=== PATIENT | male | born 1970 | race Caucasian/White ===

== ENCOUNTER 2023-05-18 14:29 | Emergency (ER) | payer MEDICAID, SELFPAY ==
--- NOTE | 2023-05-18 14:31 | HMH.EDGENADL ---
Discharge Plan Disposition Patient Disposition: Home, Self-Care Condition: Fair Prescriptions Prescriptions: New azithromycin 500 mg tablet 500 mg PO DAILY 5 Days Qty: 5 0RF dextromethorphan-guaifenesin 10-200 mg/5 mL liquid 7.5 ml PO Q6H PRN (Reason: cough) Qty: 237 0RF albuterol sulfate 90 mcg/actuation aerosol powdr breath activated 4 inh inhalation Q4H PRN (Reason: shortness of breath) Qty: 1 0RF Rx Instructions: until breathing returns to target peak flow/parameters Referrals Follow up/Referrals: Olegario Samaniego [Primary Care Provider] - See instructions Activity Restrictions/Add. Instructions Additional Instructions/Restrictions: I strongly recommend you quit smoking as this is likely significantly contributing to your cough. I have prescribed antibiotics, cough medication, inhaler to use as needed. In commendation with stopping smoking, with some time, your symptoms will likely improve. Please follow-up with your primary care provider. Please return with any new or worsening symptoms. Clinical Impressions Clinical Impression: Bronchitis Discharge ED Provider: Jimbo Schuster Adult [facility] General Chief complaint: Upper Respiratory Infection Stated complaint: cough Time Seen by Provider: 05/18/23 14:31 Related Data Previous Rx's Medication Instructions Recorded albuterol sulfate 90 mcg/actuation 4 inh inhalation Q4H PRN shortness 05/18/23 breath activated powder inhaler of breath #1 ea azithromycin 500 mg tablet 500 mg PO DAILY 5 days #5 tabs 05/18/23 dextromethorphan-guaifenesin 10 7.5 ml PO Q6H PRN cough #237 mL 05/18/23 mg-200 mg/5 mL oral liquid Allergies Allergy/AdvReac Type Severity Reaction Status Date / Time Penicillins Allergy Verified 05/18/23 15:17 [facility] Disclaimer: The information contained in this section may have been updated after the patient was seen, as this information can be updated by other users. Social History Smoking Status: Current every day smoker alcohol intake: current current occupational status: other Travel in the last 8 weeks: None ROS Obtained: Yes Systems reviewed as appropriate & no additional complaints except as documented As per HPI Physical Exam General General appearance: alert and in no apparent distress Head Head exam: atraumatic and normocephalic Eye Eye exam: Present normal appearance Neck Neck exam: Present normal inspection Chest Chest inspection: Present normal inspection and symmetric chest wall rise Respiratory Respiratory exam: Present normal lung sounds bilaterally; Absent respiratory distress Cardiovascular Cardiovascular exam: Present regular rate and normal rhythm Abdominal Exam Abdominal exam: Present soft Neurological Exam Neurological exam: Present alert and oriented X3 Psychiatric Psychiatric exam: Present normal affect and normal mood Skin Skin exam: Present warm and dry Medical Decision Making Medical Records Medical records reviewed: Yes I reviewed the patient's medical records. Edmundo Inquiry Pt receiving controlled substance: No Vital Signs: 05/18/23 14:39 05/18/23 14:37 Temperature 99.3 F Temperature Source Oral Pulse Rate 99 H Pulse Rate [Left Radial] 85 Respiratory Rate 16 20 Blood Pressure 145/105 H Blood Pressure [Right Arm] 145/105 H Blood Pressure Mean 117 Blood Pressure Mean [Right Arm] 118 02 Sat by Pulse Oximetry 97 97 Orders (Tests/Meds): ED MEDICATIONS Discontinued Medications Generic Name Dose Route Start Last Admin Trade Name Freq PRN Reason Stop Dose Admin Albuterol/Ipratropium 3 ml 05/18/23 14:45 05/18/23 15:24 Ipratropium/Albuterol 3 Ml Neb IH 05/18/23 14:46 3 ml ONCE ONE Administration Guaifenesin 10 ml 05/18/23 14:45 05/18/23 15:23 Guaifenesin/Dextromethorphan 200mg/20mg 10ml Udc PO 05/18/23 14:46 10 ml ONCE ONE Administration ORDERS Category Date Time Status XR chest 2V Stat Exam
[2023-05-18 14:37] VITALS: BP 145/105; PULSE 99; RESP 20; O2SAT 97
[2023-05-18 14:39] VITALS: BP 145/105; PULSE 85; RESP 16; TEMP 37.4; O2SAT 97; BMI 35.4
--- NOTE | 2023-05-18 14:45 | XR_ITS ---
PROCEDURE INFORMATION: Exam: XR Chest Exam date and time: 05/18/2023 2:46 PM Age: 52 years old Clinical indication: Cough; Additional info: SOA, cough TECHNIQUE: Imaging protocol: Radiologic exam of the chest. Views: 2 views. COMPARISON: No relevant prior studies available. FINDINGS: Lungs: Reticular interstitial opacities and mild peribronchial thickening in both lungs. No confluent airspace consolidation. Pleural spaces: Mild bilateral pleural thickening. No blunted costophrenic angles. Heart/Mediastinum: No abnormalities. No cardiomegaly. No pulmonary vascular congestion. Bones/joints: No fractures or bone lesions. IMPRESSION: Reticular interstitial opacities and peribronchial thickening in both lungs likely due to viral or atypical pneumonitis.
--- NOTE | 2023-05-18 15:39 | PC.NURSE ---
covid/flu swab sent to lab
[2023-05-18 15:42] LABS: Coronavirus 19, PCR Not Detected (NotDetected); Influenza A, PCR Not Detected (NotDetected); Influenza B, PCR Not Detected (NotDetected)
[2023-05-18 15:59] VITALS: BP 140/87; PULSE 80; RESP 20; TEMP 37.2; O2SAT 98
== END 2023-05-18 16:03 | disposition home or self-care (01) ==
PROVIDERS: Emergency Provider Emergency Medicine; PCP Family Medicine
DX: J20.9 Acute bronchitis, unspecified (principal); R05.9 Cough, unspecified; F17.210 Nicotine dependence, cigarettes, uncomplicated
CPT/HCPCS: 71046; 87636; 99283

== ENCOUNTER 2024-09-18 08:01 | Inpatient (IN) | payer MEDICAID, SELFPAY ==
[2024-09-18] VITALS (37 sets, daily range): BP systolic 85–136; BP diastolic 51–92; PULSE 49–141; RESP 14–22; TEMP 36.7–37.7; O2SAT 94–98; BMI 34.4; BMI 33.2
--- NOTE | 2024-09-18 08:06 | ECG_ITS ---
APPROVED REPORT Exam: Resting ECG HR:140 bpm ECG Measurements Heart Rate 140 AXES QRSd 122 QRS 260 QT 294 T 79 QTc 375 Conclusion ATRIAL FIBRILLATION WITH RAPID VENTRICULAR RESPONSE POSSIBLE RIGHT VENTRICULAR HYPERTROPHY [SOME/ALL OF: PROMINENT R IN V1, LATE TRANSITION, RAD, INEZ, SSS] ANTEROSEPTAL MYOCARDIAL INFARCTION , OF INDETERMINATE AGE [40+ ms Q WAVE IN V1-V4] ABNORMAL ECG UNCONFIRMED REPORT Electronically signed by : SKYLAR LANE, 09/20/2024 03:42:17
--- NOTE | 2024-09-18 08:09 | XR_ITS ---
FINAL REPORT CLINICAL HISTORY: Shortness of breath COMPARISON: None FINDINGS: No acute pulmonary opacity is present. There is no evidence of effusion or pneumothorax. Mediastinum is unremarkable. Heart size is normal. IMPRESSION: No acute abnormality. Reviewed, Interpreted and Dictated by Melani Rubin MD Transcribed by Simona George Authenticated and [facility]
--- NOTE | 2024-09-18 08:11 | HMH.EDCP ---
Discharge Plan Disposition Patient Disposition: Admitted Prescriptions Prescriptions: No Action azithromycin 500 mg tablet 500 mg PO DAILY 5 Days Qty: 5 0RF dextromethorphan-guaifenesin 10-200 mg/5 mL liquid 7.5 ml PO Q6H PRN (Reason: cough) Qty: 237 0RF albuterol sulfate 90 mcg/actuation aerosol powdr breath activated 4 inh inhalation Q4H PRN (Reason: shortness of breath) Qty: 1 0RF Rx Instructions: until breathing returns to target peak flow/parameters Referrals Follow up/Referrals: Olegario Samaniego [Primary Care Provider] - See instructions Clinical Impressions Clinical Impression: Atrial flutter with rapid ventricular response, Enlarged thyroid Print Language Print Language: Georgian Discharge ED Provider: Madi Miller HPI General Chief Complaint: Arrhythmia/Palpitations Stated Complaint: high heart rate Time Seen by Provider: 09/18/24 08:05 History of Present Illness HPI narrative: Patient is a 53-year-old male with past medical history of hypertension, previous ACS status post stenting who presents emergency department for evaluation of rapid heart rate. Patient has been not feeling right since 3 AM this morning causing him to ultimately present here via EMS. No chest pain, no abdominal pain, no trauma, no ingestions. Patient has slight shortness of breath with exertion, no other acute complaints at this time Of note patient was a previous substance abuser but has been clean for over 3 years. Please note that above description of symptoms, in this electronic medical record under categorization of recalled from ER triage doctor by RN are reflective of an initial nursing assessment, however, is not reflective of my full history and physical exam that was personally taken and clarified. Consequentially, this preceding description of symptoms, which may include the patient's categorized chief complaint in the EMR, do not reflect my personal clinical impression, and the ultimate description of history of present illness and patient stated complaints should be deferred to this section of the note. Unless stated otherwise or congruent with this section of the note, additional signs, symptoms, or incongruence should be interpreted as inaccurate with my clinical impression. Related Data Previous Rx's ?Medication ?Instructions ?Recorded albuterol sulfate 90 mcg/actuation 4 inh inhalation Q4H PRN shortness 05/18/23 breath activated powder inhaler of breath #1 ea azithromycin 500 mg tablet 500 mg PO DAILY 5 days #5 tabs 05/18/23 dextromethorphan-guaifenesin 10 7.5 ml PO Q6H PRN cough #237 mL 05/18/23 mg-200 mg/5 mL oral liquid Allergies Allergy/AdvReac Type Severity Reaction Status Date / Time Penicillins Allergy Verified 05/18/23 15:17 [facility] Disclaimer: The information contained in this section may have been updated after the patient was seen, as this information can be updated by other users. Social History (Updated 05/18/23 @ 15:43 by Jimbo Schuster MD) Smoking Status: Current every day smoker alcohol intake: current current occupational status: other Travel in the last 8 weeks: None Have you lived/traveled outside US in past 30 days?: No Contact w/someone who lives/traveled outside US past 30 days?: No Exposure to someone with infectious disease in past 14 days?: No Do you have a fever (greater than 100.4 F or 38 C)?: No Have you tested positive for COVID-19: No Exposed to someone with COVID-19 in past 14 days?: No Do you have a sore throat?: No Do you have a cough?: No Do you have any weakness?: No Do you have any diarrhea?: No Are you experiencing any unusual bleeding?: No Do you have any muscle aches/pain?: No Do you have any abdominal pain?: No Are you experiencing loss of taste or smell?: No ROS Obtained: Yes Systems reviewed as appropriate & no additional complaints except as documented Physical Exam General General appearance: alert and in no apparent distress Head Head exam: atraumatic and normocephalic Eye Eye exam: Present PERRL and EOMI ENT ENT exam: Present mucous membranes moist Neck Neck exam: Present normal inspection Chest Chest inspection: Present normal inspection and symmetric chest wall rise Respiratory Respiratory exam: Present normal lung sounds bilaterally; Absent respiratory distress Cardiovascular Cardiovascular exam: Present regular rate and normal rhythm Abdominal Exam Abdominal exam: Present soft; Absent tenderness Extremities Exam Extremities exam: Present normal inspection Neurological Exam Neurological exam: Present alert and oriented X3 Psychiatric Psychiatric exam: Present normal affect Skin Skin exam: Present warm and dry HEART Score HEART Score HEART Score assessment performed?: Yes History (anamnesis): Slightly suspicious ECG: Non-specific disturbance Age: 45-65 years Risk factors: Atherosclerosis history Troponin: </= normal limit HEART Score: 4 Critical Care Critical Care Time Critical Care Time: Yes Attestation: On 09/18/24, the high probability of a clinically significant, sudden or life threatening deterioration of the following system(s) required my full and direct attention, intervention and personal management. The time I documented below is in addition to time spent performing reported procedures but includes the following listed in this critical care notation. Total Time Total Critical Care Time: 45 Medical Decision Making Edmundo Inquiry Pt receiving controlled substance: No Vital Signs Vital Signs: 09/18/24 08:12 09/18/24 08:22 09/18/24 08:39 Temperature 99.8 F H Temperature Source Oral Pulse Rate 140 H 135 H Pulse Rate [Left Radial] 139 H Respiratory Rate 22 Blood Pressure 116/91 H Blood Pressure [Right Arm] 136/92 H Blood Pressure Mean [Right Arm] 106 Blood Pressure Source [Right Arm] Automatic Cuff Blood Pressure Position [Right Arm] Supine 02 Sat by Pulse Oximetry 98 98 Oxygen Delivery Method Room Air Room Air 09/18/24 09:00 09/18/24 09:30 09/18/24 10:12 Temperature Temperature Source Pulse Rate 141 H 139 H 138 H Pulse Rate [Left Radial] Respiratory Rate 17 18 Blood Pressure 112/92 H 113/83 125/89 Blood Pressure [Right Arm] Blood Pressure Mean [Right Arm] Blood Pressure Source [Right Arm] Blood Pressure Position [Right Arm] 02 Sat by Pulse Oximetry 97 95 96 Oxygen Delivery Method Room Air Room Air Room Air 09/18/24 10:30 Temperature Temperature Source Pulse Rate 137 H Pulse Rate [Left Radial] Respiratory Rate 18 Blood Pressure 120/87 Blood Pressure [Right Arm] Blood Pressure Mean [Right Arm] Blood Pressure Source [Right Arm] Blood Pressure Position [Right Arm] 02 Sat by Pulse Oximetry 96 Oxygen Delivery Method Room Air Lab Data Labs: Lab Results 09/18/24 08:32: SARS-CoV-2 (PCR) Not detected, Influenza A Untype (PCR) Not detected, Influenza Type B (PCR) Not detected 09/18/24 08:37: WBC 9.9, RBC 6.13, Hgb 19.2 H, Hct 57.2 H, MCV 93.3, MCH 31.5 H, MCHC 33.7, RDW 12.9, Plt Count 216, MPV 10.2, Neut % (Auto) 62.4, Lymph % (Auto) 29.0, [place] % (Auto) 6.7, Eos % (Auto) 1.0, Baso % (Auto) 0.5, Neut # (Auto) 6.2, Lymph # (Auto) 2.9, [place] # (Auto) 0.7, Eos # (Auto) 0.1, Baso # (Auto) 0.1, D-Dimer 0.61 H, Sodium 141, Potassium 4.2, Chloride 105, Carbon Dioxide 26, Anion Gap 14.2, BUN 16, Creatinine 1.20, Estimated Creat Clear 108, Estimated GFR 64, Est GFR ( Amer) 77, Glucose 94, Calcium 9.5, Magnesium 1.8, Total Bilirubin 0.8, AST 46, ALT 48, Alkaline Phosphatase 82, Troponin I 0.02, NT-Pro-B Natriuret Pep 466 H, Total Protein 9.1 H, Albumin 4.7, Globulin 4.4 H, Albumin/Globulin Ratio 1.1, TSH 1.51, Free T4 1.16, HCV Ab EMELIA w/Rflx PCR Qn Reactive, HIV Ag/Ab Combo Qual Negative 09/18/24 08:37 09/18/24 08:37 Response Orders (Tests/Meds): ED MEDICATIONS Generic Name Dose Route Start Last Admin Trade Name Freq PRN Reason Stop Dose Admin Diltiazem HCl 100 mg/ Sodium 100 mls @ 15 mls/hr 09/18/24 09:30 09/18/24 09:40 Chloride IV 10/18/24 09:29 15 mg/hr .Q6H40M PATTI 15 mls/hr Titration Protocol 15 MG/HR Esmolol HCl 2,500 mg in 250 mls @ 31.706 mls/hr 09/18/24 10:30 09/18/24 10:37 Esmolol In Water 2,500mg/250ml Premix IV 10/18/24 10:29 50 mcg/kg/min .Q7H54M PATTI 31.71 mls/hr Administration Protocol 50 MCG/KG/MIN Discontinued Medications Generic Name Dose Route Start Last Admin Trade Name Freq PRN Reason Stop Dose Admin Diltiazem HCl 15 mg 09/18/24 08:24 09/18/24 08:32 Diltiazem 25mg/5ml Vial IV 09/18/24 08:25 15 mg ONCE ONE Administration Diltiazem HCl 15 mg 09/18/24 09:08 09/18/24 09:14 Diltiazem 25mg/5ml Vial IV 09/18/24 09:09 15 mg ONCE ONE Administration Esmolol HCl 50 mg 09/18/24 10:30 09/18/24 10:37 Esmolol Hcl 100 Mg/10 Ml Vial IV 09/18/24 10:31 50 mg ONCE ONE Administration Lactated Ringer's 500 mls @ 999 mls/hr 09/18/24 09:48 09/18/24 09:52 Lactated Ringer's 500ml IV 09/18/24 10:18 999 mls/hr .Q31M ONE Administration Iopamidol 80 ml 09/18/24 10:12 09/18/24 10:13 Iopamidol-370 (76%);100ml Bottle IV 09/18/24 10:13 80 ml ONCE ONE Administration Sodium Chloride 10 ml 09/18/24 10:12 09/18/24 10:13 Sodium Chloride 0.9% 10ml Syr (Rad Only) IV 09/18/24 10:13 10 ml ONCE ONE Administration Sodium Chloride 50 ml 09/18/24 10:12 09/18/24 10:13 0.9 % Sodium Chloride 50 Ml Vial IV 09/18/24 10:13 50 ml ONCE ONE Administration ORDERS Category Date Time Status CT angio chest - dissection Stat Cat Scan 09/18/24 09:46 Completed CA echo limited Stat Exams 09/18/24 08:24 Completed CXR --portable [XR chest portable] Stat Exams 09/18/24 08:09 Completed POCUS Point of Care (ER Only) Stat Exams 09/18/24 08:09 Completed BNP [NT Pro Brain Natriuretic Pep.] Stat Lab 09/18/24 08:37 Completed CBC w/Auto Diff [Complete Blood Count Auto Diff] Stat Lab 09/18/24 08:37 Completed CMP [Comprehensive Metabolic Panel] Stat Lab 09/18/24 08:37 Completed D-Dimer Stat Lab 09/18/24 08:37 Completed Drug Screen,Urine Stat Lab 09/18/24 10:43 Ordered Ethanol [Ethyl Alcohol] Stat Lab 09/18/24 10:43 Ordered Free T4 (Free Thyroxine) Stat Lab 09/18/24 08:37 Completed HCV RNA PCR, Quant Stat Lab 09/18/24 08:37 Received HIV Combo Stat Lab 09/18/24 08:37 Completed Hepatitis C Ab Qual. W/ RFX Stat Lab 09/18/24 08:37 Completed MG [Magnesium] Stat Lab 09/18/24 08:37 Completed Rapid PCR Covid and Flu A/B Stat Lab 09/18/24 08:32 Completed TSH [Thyroid Stimulating Hormone] Stat Lab 09/18/24 08:37 Completed Trop I [Troponin I] Stat Lab 09/18/24 08:37 Completed Troponin I Q3H Lab 09/18/24 11:15 Ordered Troponin I Q3H Lab 09/18/24 14:15 Ordered ECG Data Tracing #1: ECG Narrative: Independently interpreted by me rate is 140, rhythm is slightly irregular, wide-complex, sawtooth wave lead V1, atrial flutter with bundle branch block, QTc 375 MDM Narrative Medical Decision Narrative: In summary patient is a 53-year-old male with past medical history described above who presents emergency department for evaluation of rapid heart rate. Patient is hemodynamically stable nontoxic-appearing upon arrival, afebrile. Patient has not an irregular wide-complex tachycardia which is difficult for me to discern whether it is sinus arrhythmia with a bundle branch block however could be atrial flutter with bundle branch block. Differential includes primary electrical arrhythmia, metabolic derangement, hyperthyroidism, pulmonary embolism, among others. Workup will be conducted with hematologic labs, chest x-ray, EKG, troponin, [id number] ultrasound. Case was discussed with Dr. Moreno, this is atrial flutter with a bundle branch block. Patient does not have decompensated heart failure so we will conduct rate control with IV diltiazem. [id number] ultrasound at bedside has suboptimal views formal will be obtained, no large pericardial effusion, appears to be slightly impaired diastolic filling of the left ventricle. Gentle crystalloid resuscitation will be conducted. Initial hematologic labs reviewed by me no significant leukocytosis, D-dimer mildly elevated, although it can be excluded per years criteria patient's tachycardia is refractory to diltiazem CTA will be conducted. No critical electrolyte abnormality thyroid studies normal. Viral swab negative. CT imaging no evidence of PE or acute lung disease, there is left thyroid lobe enlargement which will require outpatient follow-up. I do not think patient is in thyroid storm given that his T4 is normal. Case was discussed with Dr. Moreno given refractory atrial flutter maxed out on diltiazem drip will add esmolol drip in addition. Case was subsequently discussed with hospital medicine they admit the patient their service for continued evaluation at this time. Procedure: Procedure performed was [id number] ultrasound cardiac. Procedure performed by Madi Miller. Using combination of phased-array and curvilinear probe parasternal long axis and apical 4 as well as subxiphoid view were attempted, all views were suboptimal however there is no large pericardial effusion, there appears to be slight impaired contractility of the left ventricle. Images were not saved to permanent archive. Patient tolerated procedure well. They were not technically adequate and did not necessitate formal echo. Procedure: Procedure performed was ultrasound-guided IV. Procedure performed by Madi Miller. Using the linear probe a long 18-gauge IV was placed in the right cephalic vein. Patient tolerated procedure well. There were no immediate complications. Vessel cannula was patent.
--- NOTE | 2024-09-18 08:14 | PC.NURSE ---
Had Dr Moreno paged per Dr Miller for this pt
--- NOTE | 2024-09-18 08:23 | PC.NURSE ---
on phone with akhil
--- NOTE | 2024-09-18 08:24 | CA_ITS ---
APPROVED REPORT EXAM: Limited 2D Echocardiogram Tire Man: Marlene May RT(R) Ht: 5 ft 9 in Wt: 233lbs BSA: 2.20 BP: 136/92 mmHg Indications: tachycardia, HTN, smoker, palpitations. attempted echo with rapid heart rate, returned later to assess when rate slowed. TDE due to limited windows secondary to lung interference. Ordered as a limited echo to assess EF. 2D Dimensions EF AP4 33.40 % GL Strain -7.1 % Other Information Study Quality: Fair Conclusion This is a limited TTE to evaluate for LV systolic function. Limited windows are obtained. The left ventricle is normal in size. There is increased LV wall thickness. There is moderate global hypokinesis present. LVEF is 35-40%. The right ventricle is mildly dilated, with mildly reduced RV function. Mild biatrial dilation is present. Valve evaluation is not performed in the study. Electronically signed by : Christy Augustin MD 09/18/2024 21:07:22
--- NOTE | 2024-09-18 08:25 | PC.NURSE ---
Dr Moreno called back and spoke to Dr Miller to have Echo and then some Dil.
[2024-09-18] MEDS: dilTIAZem 25MG/5ML VIAL 15 MG IV ×2 (08:32→09:14)
--- OUTSIDE RECORDS SUMMARY | 2024-09-18 08:34 | XMS_ITS | Data Portability ---
Author Organization [facility] ADMIN Address [address] [place] [id number] Assessment No assessment recorded. Plan of Treatment Reminders Order Date Submit Date Provider Last Modified By Organization Details Last Modified Time Details Appointments None recorded. Lab HbA1c (hemoglobin A1c), blood 2023 [facility] (Lab Registration) , [address] , [place], [address], 4 09:24:09 CBC 2023 [facility] (Lab Registration) , [address], [place], [address], 4 09:24:08 CMP, serum or plasma 2023 [facility] (Lab Registration) , [address] [place], [address], 4 09:24:08 lipid panel, serum 2023 [facility] (Lab Registration) , [address] [place], [address], 4 09:24:09 Referral None recorded. Procedures home sleep testing (PROC) 2023 [email or web address] Not available 4 10:56:57 Surgeries None recorded. Imaging US, echocardiog wilmar, transthorac ic, complete, w/ color flow 2023 [facility], [address], [place], [address], 4 09:23:53 pharmacolog ic nuclear stress test 2023 024 [facility], [address], [place], [address], 4 09:23:53 Medication Orders nitroglycer in 0.4 mg sublingual tablet 2023 024 [id number], [address] [place], [address], 14:39:38 Patient TargetsNo targets recorded. Patient InstructionsNo instructions recorded. Reason for Referral None Reported. Medical Equipment None Reported. Medications Name Sig Start Date Stop Date Status Note LastModified by Organization Details LastModified Time atorvastatin 80 mg tablet TAKE 1 TABLET BY MOUTH EVERY DAY FOR CHLOESTEROL active Not Available Not Available Not Available prednisone 10 mg tablet TAPERING DAILY DOSE OUTLINED: 5,5,4,4,3,3 ,2,2,1,1 active Not Available Not Available No t Available ipratropium 0.5 mg-albuterol 3 mg (2.5 mg base)/3 mL nebulization soln INHALE 1 VIAL VIA NEBULIZER 4 TIMES A DAY NEEDED active Not Available Not Available No t Available azithromycin 250 mg tablet TAKE 2 TABLETS BY MOUTH TODAY, THEN TAKE 1 TABLET DAILY FOR 4 DAYS DIRECTED active Not Available Not Available No t Available ibuprofen 800 mg tablet 1 TABLET 3 TIMES A DAY NEEDED active Not Available Not Available No t Available prednisone 20 mg tablet TAKE 2 TABLETS BY MOUTH EVERY DAY FOR 5 DAYS active Not Available Not Available No t Available aspirin 81 mg tablet,delay ed release TAKE 1 TABLET BY MOUTH EVERY DAY active Not Available Not Available No t Available tamsulosin 0.4 mg capsule TAKE 1 CAPSULE BY MOUTH EVERY DAY FOR URINATION active Not Available Not Available No t Available trazodone 100 mg tablet TAKE 1 TABLET BY MOUTH EVERYDAY AT BEDTIME active Not Available Not Available No t Available amlodipine 10 mg tablet TAKE 1 TABLET BY MOUTH EVERY DAY FOR BLOOD PRESSURE active Not Available Not Available No t Available lisinopril 10 mg tablet TAKE 1 TABLET BY MOUTH EVERY DAY TO IMPROVE BLOOD PRESSURE active Not Available Not Available No t Available Advair Diskus 250 mcg-50 mcg/dose powder for inhalation INHALE 1 PUFF TWICE A DAY active Not Available Not Available No t Available nitroglyceri n 0.[address] 1 TABLET UNDER TONGUE EVERY 5 MINS, UP TO 3 DOSES NEEDED FOR CHEST PAIN active Not Available Not Available N ot Available fluoxetine 20 mg capsule TAKE 1 CAPSULE BY MOUTH EVERY DAY FOR MOOD active Not Available Not Available No t Available Ventolin HFA 90 mcg/actuatio n aerosol inhaler TAKE 2 PUFFS BY MOUTH EVERY 4 HOURS NEEDED FOR WHEEZE active Not Available Not Available No t Available azithromycin 500 mg tablet TAKE 1 TABLET BY MOUTH ONCE DAILY FOR 5 DAYS active Not Available Not Available No t Available Tussin DM Cough and Chest 5 mg-100 mg/5 mL oral liquid TAKE 7.5 ML BY MOUTH EVERY 6 HOURS NEEDED FOR COUGH active Not Available Not Available No t Available Chest Congestion Relief DM 10 mg-100 mg/5 mL oral syrup TAKE 5 TO 10 ML BY MOUTH 4 TIMES A DAY NEEDED FOR COUGH active Not Available Not Available No t Available Ozempic 0.25 mg or 0.5 mg (2 mg/3 mL) subcutaneous pen injector INJECT 0.25 MG UNDER THE SKIN ONCE WEEKLY FOR 4 WEEKS, THEN 0.5 MG ONCE WEEKLY active Not Available Not Available No t Available Vitals Date Recorded Body weight Oxygen saturation Oxygen saturation in Arterial blood by Pulse oximetry Heart rate Systolic blood pressure Diastolic blood pressure Provider Name and Address Organization Details Last Updated DateTime 4 109600. 94 g 98 % 98 % 83 /min 128 mm[Hg] 82 mm[Hg] [facility] & [place] 4 14:36:34 Social History None recorded. Functional Status None recorded. Mental Status None recorded. Family History Nothing Reported. Medical History No medical history recorded. Past Encounters Encounter ID Performer Location Encounter Start Date Encounter Closed Date Diagnosis/Indication Diagnosis SNOMED-CT Code Diagnosis ICD10 Code Diagnosis Note [id number] Eugenia Langley MD [address] [place] [id number] 09/16/2023 14:35:25 09/16/2023 14:46:41 Dyspnea on exertion 46358015 R06.09 Exertional shortness of breath in a patient with multiple risk factors for coronary artery disease and history of coronary stents. Could be angina equivalent . We will proceed with ischemic workup. History of placement of stent for coronary artery disease 073846530 Z95.5 multiple coronary stents when the patient was 39 years old for heart attack as per the patient done at [facility] records not available to us. No chest pain. No ischemic changes on the EKG. Continue medical treatment. Essential hypertension 47517873 I10 controlled continue medication s. Dyslipidemia 136590462 E 78.5 On statin follow up fasting lipid profile. Cigarette smoker 0129149 7 F17.210 Strongly encouraged the patient to quit smoking. I had a lengthy discussion with the patient regarding quitting smoking and available measuremen t to help him quit smoking including support groups nicotine patches or medication like Chantix. Obesity 537637268 E66.9 Recommend sleep apnea evaluation . Type 2 rupali betes mellitus without complication 401336033 E11.9 Follow up hemoglobin A1c. Health Concerns Section Related Observation LastModified by Organization Detai ls LastModified Time None Recorded Concern Status LastModified by Organization Details LastModified Time None Recorded Advance Directives Directive None Recorded Payers Encounter Date Sequence Insurance Name Policy Number Policy Arreola Covered Member ID Arreola Member ID Guarantor Name 09/16/2023 1 [employer] (MEDICAID REPLACEMENT - HMO) Joel Lemons [id number] Joel Lemons Notes Date Note Type Note Provider Name and Address Organization Details Recorded Time 09/16/2023 text/html 52-year-old man with a past medical history significant for coronary artery disease as per the patient he had heart attack and coronary stents when he was 39 years old, hypertension dyslipidemia chronic smoker borderline diabetes and obesity.Patient had a visit to the ER on 09/13/2023 for shortness of breath. He has been complaining of worsening shortness of breath especially with exertion for the last couple of weeks. Associated with cough and phlegm no hemoptysis no fever no chills no bleeding anywhere. No chest pain he is physically active at work. No palpitation dizziness falling down or passing out no orthopnea PND or leg swelling.I reviewed and discussed with the patient the results of the blood work that was done 09/13/2023 at the ER including complete metabolic panel, troponin which was 93 and 91, D-dimer, CBC, INR 0.97 EKG done 09/13/23 at the ER Normal sinus rhythm, HR 84 bpm no ischemic changes. Eugenia Langley MD [address] [place] [address], [phone], [facility] & [place] 09/16/2023 14:54:20
[2024-09-18 08:39] LABS: Coronavirus 19, PCR Not Detected (NotDetected); Influenza A, PCR Not Detected (NotDetected); Influenza B, PCR Not Detected (NotDetected)
--- NOTE | 2024-09-18 08:45 | PC.NURSE ---
pt placed on gown
[2024-09-18 08:46] LABS: Basophils # 0.1 K/mm3 (0-0.2); Basophils % 0.5 % (0.1-2.0); Eosinophils # 0.1 K/mm3 (0.0-0.4); Hematocrit 57.2 % (42.0-52.0); Lymphocytes # 2.9 K/mm3 (0.7-4.5); Mean Corpuscular HGB Conc 33.7 g/dL (31.8-35.4); Mean Corpuscular Hemoglobin 31.5 pg (27.0-31.2); Mean Corpuscular Volume 93.3 fl (80-94); Mean Platelet Volume 10.2 fl (7.4-10.4); Monocytes # 0.7 K/mm3 (0.1-1.0); Monocytes % 6.7 % (1.7-9.3); Neutrophils # 6.2 K/mm3 (1.8-7.8); Neutrophils % 62.4 % (37.0-80.0); Nucleated Red Blood Cells # 0 10^3/uL; Nucleated Red Blood Cells % 0 %; Platelet Count 216 K/mm3 (142-424); Red Blood Count 6.13 M/mm3 (4.60-6.20); Red Cell Distribution Width 12.9 % (11.5-17.5); Red Cell Distribution Width-SD 44.3 fL; White Blood Count 9.9 K/mm3 (4.8-10.8)
[2024-09-18 08:55] LABS: Albumin Level 4.7 g/dl (3.5-5.0); Chloride 105 mmol/L (98-107)
[2024-09-18 08:56] LABS: Potassium 4.2 mmoL/L (3.5-5.1); Sodium 141 mmol/L (136-145)
[2024-09-18 08:58] LABS: Alanine Aminotransferase 48 U/L (12-78); Albumin/Globulin Ratio 1.1 (1.1-1.8); Anion Gap 14.2 mEq/L (5-15); Aspartate Amino Transferase 46 U/L (17-59); Blood Urea Nitrogen 16 mg/dl (9-20); Carbon Dioxide 26 mmol/L (22.0-30.0); Creatinine Clearance Estimated 108 mL/min (50-200); Estimated Glomerular Filt Rate 64 ml/min (>60); GFR (African American) 77 ML/MIN (>60); Globulin 4.4 g/dL (1.3-3.2); Total Protein,Serum 9.1 g/dl (6.3-8.2)
[2024-09-18 08:59] LABS: Alkaline Phosphatase 82 U/L (38-126); Bilirubin,Total 0.8 mg/dl (0.2-1.3); Calcium 9.5 mg/dl (8.4-10.2); Glucose 94 mg/dl (74-100); Magnesium 1.8 mg/dl (1.6-2.3)
[2024-09-18 09:05] LABS: D-Dimer 0.61 ug/mL (0.0-0.5)
[2024-09-18 09:08] LABS: NT Pro Brain Natriuretic Pep. 466 pg/mL (0-125)
[2024-09-18 09:11] LABS: Hemoglobin 19.2 g/dL (14.1-18.0); Troponin I 0.02 ng/ml (0.00-0.034)
[2024-09-18] MEDS: dilTIAZem HCL 100 MG in 0.9 % SODIUM CHLORIDE 100 ML IV (09:14)
[2024-09-18 09:29] LABS: Thyroid Stimulating Hormone 1.51 uIU/mL (0.465-4.68)
[2024-09-18 09:34] LABS: Free T4 (Free Thyroxine) 1.16 ng/dl (0.78-2.19)
--- NOTE | 2024-09-18 09:46 | CT_ITS ---
FINAL REPORT TECHNIQUE: Thin section axial CT with contrast with multiplanar reconstruction This study was performed with techniques to keep radiation doses as low as reasonably achievable, (ALARA). Individualized dose reduction techniques using automated exposure control or adjustment of mA and/or kV according to the patient''s size were employed. CLINICAL HISTORY: sob, tachy FINDINGS: Pulmonary vessels enhance in normal fashion without evidence of embolism. The ascending aorta is mildly aneurysmal measuring 40 mm. There is no evidence of dissection. There is marked enlargement of the left thyroid lobe with probable underlying mass measuring 4 cm. No pulmonary mass or infiltrate is present. There is no significant pleural effusion. There is no significant pericardial effusion. No mediastinal or hilar adenopathy is present. Limited images of the upper abdomen reveal a cirrhotic appearance to the liver. IMPRESSION: No evidence of pulmonary embolism or acute lung disease. Left thyroid lobe enlargement. Recommend follow-up ultrasound. Underlying cirrhosis. Reviewed, Interpreted and Dictated by Melani Rubin MD Transcribed by Margaret Yang Authenticated and [facility]
[2024-09-18] MEDS: RINGERS SOLUTION,LACTATED 500 ML 999 ML IV (09:52)
[2024-09-18 09:59] LABS: HIV Combo NEGATIVE (Negative)
[2024-09-18 10:07] LABS: Hepatitis C Ab Qual. W/ RFX REACTIVE (Negative)
[2024-09-18] MEDS: IOPAMIDOL-370 (76%);100ML BOTTLE 80 ML IV (10:13)
[2024-09-18] MEDS: SODIUM CHLORIDE 0.9% 10ML SYR (RAD ONLY) 10 ML IV ×2 (10:13→13:20)
[2024-09-18] MEDS: 0.9 % SODIUM CHLORIDE 50 ML VIAL IV ×2 (10:13→13:20)
[2024-09-18] MEDS: ESMOLOL HCL 100 MG/10 ML VIAL 50 MG IV (10:37)
[2024-09-18] MEDS: ESMOLOL HCL IN STERILE WATER 2,500 MG/250 ML PIGGYBACK 31.71 MG IV (10:37)
--- NOTE | 2024-09-18 10:43 | PC.NURSE ---
I notified of the need for a bed for admission.
[2024-09-18 11:02] LABS: Ethyl Alcohol < 10 mg/dl (0-10)
[2024-09-18 11:11] LABS: Barbiturates Screen,Urine Negative ng/ml (<200)
[2024-09-18 11:12] LABS: Amphetamine/Metha Screen,Urine Negative ng/ml (<1000); Benzodiazepines Screen,Urine Negative ng/ml (<200)
[2024-09-18 11:13] LABS: Cocaine Screen,Urine Negative ng/ml (<300)
[2024-09-18 11:14] LABS: Methadone Screen,Urine Negative ng/ml (<300)
[2024-09-18 11:15] LABS: Cannabinoid Screen,Urine Negative ng/ml (<50); Opiate Screen,Urine Negative ng/ml (<300)
[2024-09-18 11:16] LABS: Phencyclidine Screen,Urine Negative ng/ml (<25)
--- NOTE | 2024-09-18 11:24 | EXP.CARD.CON ---
History of Present Illness History of Present Illness Consult date: 09/18/24 Requesting physician: Madi Miller Chief complaint: palpitations History of present illness: Mr. Lemons is a 53-year-old white gentleman with past medical history of coronary artery disease with stenting to LAD in his early 30s with no cardiology follow-up since then, hypertension and hyperlipidemia who presented to emergency department with complaints of palpitations and fast heart rate. Patient reports he awoke at 3 in the morning with symptoms and was able to go back to sleep. Reports that when he awoke this morning he was still having the palpitations and mild shortness of air. He denies orthopnea, lower extremity edema or chest pain. EKG upon presentation to emergency department shows a an irregular wide-complex tachycardia which could possibly be A-fib RVR at a rate of 140. Initial chest x-ray shows no acute abnormality. Labs as follow: WBC 9.9, hemoglobin 19.2, positive D-dimer, sodium 141, potassium 4.2, creatinine 1.2, troponin negative, proBNP 466, drug toxicology negative, negative for alcohol. Chest CTA is negative for pulmonary embolism or acute lung findings. There is a left thyroid lobe enlargement noted on scan and underlying cirrhosis. TSH and free T4 are both normal. Patient was started on diltiazem drip without rate control achieved. Patient is now on diltiazem and esmolol drip for rate control. Patient is resting comfortably with minimal symptoms. He reports some mild shortness of breath and he can feel his heart racing but no chest pain. Blood pressure remained stable. Echocardiogram is pending. [facility] Disclaimer: The information contained in this section may have been updated after the patient was seen, as this information can be updated by other users. Social History (Updated 05/18/23 @ 15:43 by Jimbo Schuster MD) Smoking Status: Current every day smoker alcohol intake: current current occupational status: other Travel in the last 8 weeks: None Have you lived/traveled outside US in past 30 days?: No Contact w/someone who lives/traveled outside US past 30 days?: No Exposure to someone with infectious disease in past 14 days?: No Do you have a fever (greater than 100.4 F or 38 C)?: No Have you tested positive for COVID-19: No Exposed to someone with COVID-19 in past 14 days?: No Do you have a sore throat?: No Do you have a cough?: No Do you have any weakness?: No Do you have any diarrhea?: No Are you experiencing any unusual bleeding?: No Do you have any muscle aches/pain?: No Do you have any abdominal pain?: No Are you experiencing loss of taste or smell?: No Review of Systems Review of Systems Review of systems:: pertinent systems reviewed and negative unless documented below *Cardiovascular Cardiovascular: Denies chest pain and Reports dyspnea Comments: palpitations *Respiratory Respiratory: Reports dyspnea Exam Data for Last 24 hours Vital signs and Labs for Last 24 Hours: Temp Pulse Resp BP Pulse Ox O2 Del Method 99.8 F H 134 H 21 117/82 96 Room Air 09/18/24 08:12 09/18/24 11:00 09/18/24 11:00 09/18/24 11:00 09/18/24 11:00 09/18/24 10:30 Laboratory Results - last 24 hr 09/18/24 08:32: SARS-CoV-2 (PCR) Not detected, Influenza A Untype (PCR) Not detected, Influenza Type B (PCR) Not detected 09/18/24 08:37: WBC 9.9, RBC 6.13, Hgb 19.2 H, Hct 57.2 H, MCV 93.3, MCH 31.5 H, MCHC 33.7, RDW 12.9, Plt Count 216, MPV 10.2, Neut % (Auto) 62.4, Lymph % (Auto) 29.0, [place] % (Auto) 6.7, Eos % (Auto) 1.0, Baso % (Auto) 0.5, Neut # (Auto) 6.2, Lymph # (Auto) 2.9, [place] # (Auto) 0.7, Eos # (Auto) 0.1, Baso # (Auto) 0.1, D-Dimer 0.61 H, Sodium 141, Potassium 4.2, Chloride 105, Carbon Dioxide 26, Anion Gap 14.2, BUN 16, Creatinine 1.20, Estimated Creat Clear 108, Estimated GFR 64, Est GFR ( Amer) 77, Glucose 94, Calcium 9.5, Magnesium 1.8, Total Bilirubin 0.8, AST 46, ALT 48, Alkaline Phosphatase 82, Troponin I 0.02, NT-Pro-B Natriuret Pep 466 H, Total Protein 9.1 H, Albumin 4.7, Globulin 4.4 H, Albumin/Globulin Ratio 1.1, TSH 1.51, Free T4 1.16, Urine Opiates Screen Negative, Urine Methadone Screen Negative, Ur Barbituates Screen Negative, Ur Phencyclidine Scrn Negative, Ur Amphetamines Screen Negative, U Benzodiazepines Scrn Negative, Urine Cocaine Screen Negative, U Marijuana (THC) Screen Negative, Plasma/Serum Alcohol < 10, HCV Ab EMELIA w/Rflx PCR Qn Reactive, HIV Ag/Ab Combo Qual Negative I & O for Last 24 hours: Intake & Output 09/15/24 09/16/24 09/17/24 09/18/24 23:59 23:59 23:59 23:59 Intake Total 2.167 / 2.167 Balance 2.167 / 2.167 Weight 233 lb Constitutional Constitutional: no acute distress *Routine Respiratory Exam Respiratory: Present CTA bilaterally and symmetric chest movement *Routine Cardiovascular Exam Cardiovascular: Present Normal S1, Normal S2 and irregular rhythm Comments: Irregular wide-complex tachycardia noted *Routine Abdominal Exam Abdominal: Present soft and normoactive bowel sounds; Absent tenderness *Routine Extremities Exam Extremities: Present full ROM and normal capillary refill; Absent edema *Routine Skin Exam Skin: Present intact, dry and warm Detailed Neck Exam: Thyroids Thyroid: Absent bruit Meds Home Medications and Allergies Home Medications ?Medication ?Instructions ?Recorded ?Confirmed ?Type albuterol sulfate 90 mcg/actuation 4 inh inhalation Q4H PRN shortness 05/18/23 Rx breath activated powder inhaler of breath #1 ea azithromycin 500 mg tablet 500 mg PO DAILY 5 days #5 tabs 05/18/23 Rx dextromethorphan-guaifenesin 10 7.5 ml PO Q6H PRN cough #237 mL 05/18/23 Rx mg-200 mg/5 mL oral liquid New Prescriptions to Start Prescriptions: Allergies Allergy/AdvReac Type Severity Reaction Status Date / Time Penicillins Allergy Verified 05/18/23 15:17 Assessment and Plan *Assessment and plan (1) Palpitations: Status: Acute Category: Medical Code(s): R00.2 - Palpitations (2) Tachycardia: Status: Acute Category: Medical Code(s): R00.0 - Tachycardia, unspecified (3) Enlarged thyroid: Status: Acute Category: Medical Code(s): E04.9 - Nontoxic goiter, unspecified (4) Atrial flutter with rapid ventricular response: Status: Acute Category: Medical Code(s): I48.92 - Unspecified atrial flutter Plan Palpitations Tachycardia Wide-complex QRS-possibly A-fib RVR CTA negative for PE Troponin negative TSH and free T4 negative Continue Cardizem and esmolol drips Lovenox 1 mg subcu twice daily Consider CCTA to rule out LV thrombus and cardioversion if cannot achieve rate control with esmolol and Dilt Echocardiogram pending History of coronary artery disease Patient reports he had stenting to his LAD in his 20s Has not seen cardiology since then Current smoker diabetic Denies chest pain First troponin negative Enlarged thyroid lobe noted on CTA TSH and free T4 normal Defer to primary service 09/18/2024: If rate control cannot be achieved with esmolol and diltiazem drips will consider cardioversion. Patient will need CCTA to rule out LV thrombus prior to cardioversion.
--- NOTE | 2024-09-18 11:26 | PC.NURSE ---
report called to bola on second floor
--- NOTE | 2024-09-18 12:01 | CT_ITS ---
APPROVED REPORT Chief Sustainability Officer: CLINICAL INDICATION Atrial fibrillation, evaluation for BOGDAN thrombus TECHNIQUE Image Acquisition: A 128 slice MDCT scanner ([facility]) was used for data acquisition. A noncontrast coronary calcium scan was performed. A CT attenuation threshold of 130 Hounsfield units (HU) was used for the detection of calcium in contiguous voxels of 1 sq mm in area to be counted as individual lesions. Bolus tracking in the ascending aorta with a threshold of 180 HU was performed. Immediately afterwards, ECG synchronized cardiac CT was then performed from the cardiac base to apex using retrospective gating with ECG tube current modulation. A total of 85 mL of Isovue 370 mg/mL contrast medium was administered at 5 mL/sec followed by a saline flush using a biphasic injection protocol. Early bolus imaging was performed immediately after administration of contrast, followed by a delayed bolus imaging performed approximately 60-120 seconds thereafter to evaluate for left atrial appendage filling. A tube voltage of 120 KVp was used. Image Reconstruction Transaxial images were reconstructed at 0.67 mm slide thickness. Data was reviewed interactively on an advanced workstation capable of 2 and 3-dimensional displays in all conventional reconstruction formats, including multiplanar reformations, maximum intensity projections, curved multiplanar reformations, and volume rendered reconstructions. When applicable, selected routine images describing the relevant coronary anatomy and pathology were saved and sent to PACS. Complications None Technical Quality Overall image quality was suboptimal due to HR and significant motion and blurring artifact. Coronary artery opacification was non-diagnostic. Total DLP (Dose-Length Product) is 2815.8 mGy-cm. The reported value represents the total of one or more individual components during the CT acquisition of this date and at this time, and as such, the same value may appear in more than one CT report depending on the interpreting/reporting physicians. COMPARISON None FINDINGS -Technically difficult imaging due to significant motion and blurring artifact, as well as elevated HR. -Evaluation of the left atrial appendage (BOGDAN) during early and delayed phases demonstrates lack of full contrast opacification of the distal BOGDAN in both phases. Therefore, a true filling defect in the distal BOGDAN may be present and cannot be entirely ruled out. -Extensive multivessel coronary calcification is incidentally noted. CRITICAL RESULT The above findings were communicated with the inpatient cardiology consult team at the time of image acquisition. The patient underwent anticoagulatio and rate-control for atrial fibrillation as BOGDAN thrombus could not be entirely ruled out based on the results of this CTA. The coronary and cardiac findings of this CCTA were reviewed, reported, and signed by Jason Augustin MD (Inspector [employer] S[employer]) Conclusion Electronically signed by : Christy Augustin MD 09/20/2024 15:32:08
--- NOTE | 2024-09-18 12:15 | PC.NURSE ---
1208 presented to er to transport pt to 2nd floor. 1210 per v/o from Lyubov esmolol drip was increased to 75mcg. 1212 [facility] called ER and spoke with Soniya Arriaga and stated to keep pt in the ER at this time for CCTA. 1213 face to face notified Heavenly Guevara, Jael Cox that pt is to remain in er for CCTA. This RN will return to er to transport pt once ccta was completed.
[2024-09-18] MEDS: ENOXAPARIN 120MG/0.8ML SYRINGE 105 MG SUBCUT (12:41)
--- NOTE | 2024-09-18 12:52 | PC.NURSE ---
per hafsa in radiology nursing staff is to give @ nitro pills sublingual prior to coronary CTA. pt heart rate 133, BP 119/94. according to hafsa belcher states to follow CCTA protocol aside from dropping pts heart rate.
[2024-09-18] MEDS: IOPAMIDOL-370 (76%);100ML BOTTLE 85 ML IV (13:20)
[2024-09-18] MEDS: NITROGLYCERIN 0.4MG SL TABLET 0.8 MG SL (13:21)
--- NOTE | 2024-09-18 13:51 | PC.NURSE ---
arrived by stretcher from ED
--- NOTE | 2024-09-18 14:09 | PC.NURSE ---
Addendum entered by ROSS Terry 09/18/24 14:16: ANNEMARIE Pham is aware of pt refusal. Original Note: upon admission pt was educated on the ICU CRE Routine screening protocol. pt refused the CRE swab, family is at BS at this time and call light is within reach.
--- NOTE | 2024-09-18 14:31 | PC.NURSE ---
All patient care and documentation completed by Melvi FRANCO was completed under my direct supervision. . Elizabeth Flores RN
--- NOTE | 2024-09-18 14:52 | P.HP_ITS ---
History of Present Illness *Admission Date: 09/18/24 *Reason for visit:: Heart racing *History of present illness: Joel Lemons is a 53-year-old male with a medical history significant for AR/CAD with stent, hypertension, anxiety/depression, treated hepatitis C who presents with acute onset heart racing that began at 3 AM this morning. Patient states he woke up with heart racing with mild shortness of breath ever since. Denies chest pain, fever/chills, abdominal pain, constipation/diarrhea, urinary symptoms, poor oral intake. He states he is never had this before. Denies recent medication changes, recreational drug use, alcohol use, but 1 pack a day current smoker. On arrival heart rate in the 130s with wide QRS likely A-fib RVR. Hemoglobin 19.2, troponin 0.05, BNP is 466. CTA chest negative for PE, CCTA pending at this time. Case discussed with ED provider and decision was made to admit patient for new onset A-fib RVR. [facility] Disclaimer: The information contained in this section may have been updated after the patient was seen, as this information can be updated by other users. Medical History (Updated 09/18/24 @ 15:42 by Elizabeth Flores RN) Prediabetes Anxiety Depression BPH (benign prostatic hyperplasia) HLD (hyperlipidemia) HTN (hypertension) Heart attack COPD (chronic obstructive pulmonary disease) Surgical History (Updated 09/18/24 @ 15:42 by Elizabeth Flores RN) History of incision and drainage Hx of heart artery stent S/P cardiac catheterization Family History Other No significant family history Social History Smoking Status: Current every day smoker alcohol intake: current current occupational status: other Travel in the last 8 weeks: None Have you lived/traveled outside US in past 30 days?: No Contact w/someone who lives/traveled outside US past 30 days?: No Exposure to someone with infectious disease in past 14 days?: No Do you have a fever (greater than 100.4 F or 38 C)?: No Have you tested positive for COVID-19: No Exposed to someone with COVID-19 in past 14 days?: No Do you have a sore throat?: No Do you have a cough?: No Do you have any weakness?: No Are you experiencing any nausea/vomitting?: No Do you have any diarrhea?: No Are you experiencing any unusual bleeding?: No Do you have any muscle aches/pain?: No Do you have any abdominal pain?: No Are you experiencing loss of taste or smell?: No Other Medical History Have you received the Flu Vaccine for this season: No Have you received the Pneumonia Vaccine: No Meds Home Medications and Allergies Home Medications ?Medication ?Instructions ?Recorded ?Confirmed ?Type amlodipine 10 mg tablet 10 mg PO DAILY 09/18/24 09/18/24 History aspirin 81 mg tablet,delayed 81 mg PO DAILY 09/18/24 09/18/24 History release fluoxetine 20 mg capsule 20 mg PO DAILY 09/18/24 09/18/24 History lisinopril 10 mg tablet 10 mg PO DAILY 09/18/24 09/18/24 History semaglutide 1 mg/dose (4 mg/3 mL) 1 mg SQ WEEKLY 09/18/24 09/18/24 History subcutaneous pen injector (Ozempic) tamsulosin 0.4 mg capsule 0.4 mg PO HS 09/18/24 09/18/24 History trazodone 100 mg tablet 100 mg PO HS 09/18/24 09/18/24 History New Prescriptions to Start Prescriptions: Allergies Allergy/AdvReac Type Severity Reaction Status Date / Time No Known Allergies Allergy Verified 09/18/24 15:42 Exam Data for Last 24 hours Vital signs and Labs for Last 24 Hours: Temp Pulse Resp BP Pulse Ox O2 Del Method 99.5 F 132 H 16 85/65 L 97 Room Air 09/18/24 13:59 09/18/24 13:59 09/18/24 13:59 09/18/24 13:59 09/18/24 13:59 09/18/24 13:59 Laboratory Results - last 24 hr 09/18/24 08:32: SARS-CoV-2 (PCR) Not detected, Influenza A Untype (PCR) Not detected, Influenza Type B (PCR) Not detected 09/18/24 08:37: WBC 9.9, RBC 6.13, Hgb 19.2 H, Hct 57.2 H, MCV 93.3, MCH 31.5 H, MCHC 33.7, RDW 12.9, Plt Count 216, MPV 10.2, Neut % (Auto) 62.4, Lymph % (Auto) 29.0, [place] % (Auto) 6.7, Eos % (Auto) 1.0, Baso % (Auto) 0.5, Neut # (Auto) 6.2, Lymph # (Auto) 2.9, [place] # (Auto) 0.7, Eos # (Auto) 0.1, Baso # (Auto) 0.1, D- Dimer 0.61 H, Sodium 141, Potassium 4.2, Chloride 105, Carbon Dioxide 26, Anion Gap 14.2, BUN 16, Creatinine 1.20, Estimated Creat Clear 108, Estimated GFR 64, Est GFR ( Amer) 77, Glucose 94, Calcium 9.5, Magnesium 1.8, Total Bilirubin 0.8, AST 46, ALT 48, Alkaline Phosphatase 82, Troponin I 0.02, NT-Pro-B Natriuret Pep 466 H, Total Protein 9.1 H, Albumin 4.7, Globulin 4.4 H, Albumin/Globulin Ratio 1.1, TSH 1.51, Free T4 1.16, Urine Opiates Screen Negative, Urine Methadone Screen Negative, Ur Barbituates Screen Negative, Ur Phencyclidine Scrn Negative, Ur Amphetamines Screen Negative, U Benzodiazepines Scrn Negative, Urine Cocaine Screen Negative, U Marijuana (THC) Screen Negative, Plasma/Serum Alcohol < 10, HCV Ab EMELIA w/Rflx PCR Qn Reactive, HIV Ag/Ab Combo Qual Negative I & O for Last 24 hours: Intake & Output 09/15/24 09/16/24 09/17/24 09/18/24 23:59 23:59 23:59 23:59 Intake Total 2.167 / 2.167 Balance 2.167 / 2.167 Weight 103.419 kg Constitutional Constitutional: no acute distress *Routine HEENT Exam Head: Present normocephalic Eye: Present EOMI and PERRL ENT: Present mucous membranes moist *Routine Neck Exam Neck: Present supple; Absent lymphadenopathy *Routine Respiratory Exam Respiratory: Present CTA bilaterally *Routine Cardiovascular Exam Cardiovascular: Present tachycardia and irregularly irregular *Routine Abdominal Exam Abdominal: Present soft and normoactive bowel sounds; Absent tenderness *Routine Rectal Exam Rectal:: deferred *Routine Genitalia Exam Genitalia:: deferred *Routine Extremities Exam Extremities: Absent cyanosis, clubbing or edema *Routine Skin Exam Skin: Present warm; Absent rash *Routine Neurological Exam Neurological: Present alert and oriented X3 Assessment and Plan *Assessment and plan (1) Atrial flutter with rapid ventricular response: Status: Acute Category: Medical Code(s): I48.92 - Unspecified atrial flutter Plan Joel Lemons is a 53-year-old male with a medical history significant for AR/CAD with stent, hypertension, anxiety/depression, treated hepatitis C who presents with acute onset heart racing that began at 3 AM this morning. Patient states he woke up with heart racing with mild shortness of breath ever since. Denies chest pain, fever/chills, abdominal pain, constipation/diarrhea, urinary symptoms, poor oral intake. He states he is never had this before. Denies recent medication changes, recreational drug use, alcohol use, but 1 pack a day current smoker. On arrival heart rate in the 130s with wide QRS likely A-fib RVR. Hemoglobin 19.2, troponin 0.05, BNP is 466. CTA chest negative for PE, CCTA pending at this time. Case discussed with ED provider and decision was made to admit patient for new onset A-fib RVR. #A-fib/flutter RVR ? Presented with palpitations, mild shortness of breath. No signs of infection, denies alcohol use, UDS normal. Does seem dehydrated, hemoconcentrated. ? Heart rate initially in 130s, ED initially gave diltiazem 15 mg x 2 and started on diltiazem drip, however refractory. Discussed with Dr. Moreno, who recommended adding esmolol drip. ? Cardiology consulted, considered cardioversion but CCTA shows possible thrombus. Official read pending. ? Continue titrating diltiazem and esmolol drip. Caution with soft pressures. ? Anticoagulation with therapeutic Lovenox for now, [id number]. ? Patient does seem to be hemoconcentrated with hemoglobin 19.2, will administer additional 1 L NS bolus. ? Follow-up ECHO. #Dominant left thyroid mass ? Seen on chest CTA and thyroid ultrasound. However, TSH, free T4 were normal. ? Patient will be referred to endocrinology for FNA. #History of AR with stents #CAD ? Continue home aspirin, started atorvastatin 40 mg. #Hypertension ? Hold home lisinopril, amlodipine due to soft pressures. #Anxiety/depression #Insomnia ? Can hold home trazodone due to soft pressures. Can use Zyprexa 5 mg as needed for sleep. ? Continue home fluoxetine. QTc 375. #BPH ? Hold tamsulosin for now due to soft pressures. Follow-up urine output. Full code DVT prophylaxis: Therapeutic Lovenox as above.
--- NOTE | 2024-09-18 14:55 | US_ITS ---
FINAL REPORT CLINICAL HISTORY: Left lobe thyroid enlargement on CT, A-fib RVR FINDINGS: Limited sonographic images of the thyroid were obtained. There are multiple TR 4 nodules of the right lobe which range in size from 7 to 10 mm. There is a dominant TR 3 mass of the left lobe. This is isoechoic with cystic degeneration centrally. The lesion measures up to 58 mm. IMPRESSION: Dominant left thyroid mass, ultrasound directed FNA may be considered of this lesion. Smaller right thyroid nodules. 12-month follow-up of these lesions may be considered. Reviewed, Interpreted and Dictated by Melani Rubin MD Transcribed by Margaret Yang Authenticated and [facility]
[2024-09-18] MEDS: dilTIAZem HCL 100 MG in 0.9 % SODIUM CHLORIDE 100 ML 15 MG IV (14:58)
[2024-09-18 14:59] LABS: Troponin I 0.05 ng/ml (0.00-0.034)
[2024-09-18 15:34] LABS: Free T4 (Free Thyroxine) 1.23 ng/dl (0.78-2.19)
[2024-09-18 16:02] LABS: Microscopic, Urine URINE MICROSCOPIC (MICROSCOPIC)
[2024-09-18 16:09] LABS: Appearance,Urine CLEAR (Clear); Bilirubin,Urine Negative (Negative); Blood, Urine Negative (Negative); Color,Urine YELLOW (Yellow); Glucose,Urine (UA) Negative (Negative); Ketones,Urine Negative (Negative); Leukocyte Esterase,Urine Negative (Negative); Nitrate,Urine Negative (Negative); Protein,Urine Negative (Negative)
[2024-09-18] MEDS: 0.9 % SODIUM CHLORIDE 1000ML 1,000 ML 500 ML IV (17:21)
[2024-09-18] MEDS: ESMOLOL HCL IN STERILE WATER 2,500 MG/250 ML PIGGYBACK 47.56 MG IV (17:23)
[2024-09-18 18:11] LABS: Troponin I 0.14 ng/ml (0.00-0.034)
[2024-09-18] MEDS: ATORVASTATIN 40MG TABLET 40 MG PO (20:06)
[2024-09-18] MEDS: ACETAMINOPHEN 325MG TAB 650 MG PO (20:08)
--- NOTE | 2024-09-18 20:29 | ECG_ITS ---
APPROVED REPORT Exam: Resting ECG HR:54 bpm ECG Measurements Heart Rate 54 AXES IN 211 P 42 QRSd 114 QRS -62 QT 443 T -57 QTc 430 Conclusion SINUS BRADYCARDIA WITH FIRST DEGREE AV BLOCK LEFT AXIS DEVIATION [QRS AXIS < -30] INCOMPLETE RIGHT BUNDLE BRANCH BLOCK [90+ ms QRS DURATION, TERMINAL R IN V1/V2, 40+ ms S IN I/aVL/V4/V5/V6] ANTEROSEPTAL MYOCARDIAL INFARCTION , PROBABLY RECENT [40+ ms Q WAVE IN V1-V4] ACUTE CO UNCONFIRMED REPORT Electronically signed by : Marvin Celaya MD 09/19/2024 20:19:39
--- NOTE | 2024-09-18 20:46 | PC.NURSE ---
@ 2014 pts heart rate dropped to 24. pt asymptomatic at this time. Esmolol was stopped. provider at bedside. EKG completed and read by Alvaro ORTIZ. Current rate 59 in sinus abhishek.
[2024-09-18] MEDS: TRAZODONE 50MG TABLET 100 MG PO (21:14)
[2024-09-18] MEDS: 0.9 % SODIUM CHLORIDE 1000ML 1,000 ML 75 ML IV (21:14)
--- NOTE | 2024-09-18 21:47 | P.HP_ITS ---
History of Present Illness *Admission Date: 09/18/24 *History of present illness: Joel Lemons is a 53-year-old male with a medical history significant for [place]/CAD with stent, hypertension, anxiety/depression, treated hepatitis C who presents with acute onset heart racing that began at 3 AM this morning. Patient states he woke up with heart racing with mild shortness of breath ever since. Denies chest pain, fever/chills, abdominal pain, constipation/diarrhea, urinary symptoms, poor oral intake. He states he is never had this before. Denies recent medication changes, recreational drug use, alcohol use, but 1 pack a day current smoker. On arrival heart rate in the 130s with wide QRS likely A-fib RVR. Hemoglobin 19.2, troponin 0.05, BNP is 466. CTA chest negative for PE, CCTA pending at this time. Case discussed with ED provider and decision was made to admit patient for new onset A-fib RVR. [facility] Disclaimer: The information contained in this section may have been updated after the patient was seen, as this information can be updated by other users. Medical History (Updated 09/18/24 @ 15:42 by Elizabeth Flores RN) Prediabetes Anxiety Depression BPH (benign prostatic hyperplasia) HLD (hyperlipidemia) HTN (hypertension) Heart attack COPD (chronic obstructive pulmonary disease) Surgical History (Updated 09/18/24 @ 15:42 by Elizabeth Flores RN) History of incision and drainage Hx of heart artery stent S/P cardiac catheterization Family History Other No significant family history Social History Smoking Status: Current every day smoker alcohol intake: current current occupational status: other Travel in the last 8 weeks: None Have you lived/traveled outside [place] in past 30 days?: No Contact w/someone who lives/traveled outside US past 30 days?: No Exposure to someone with infectious disease in past 14 days?: No Do you have a fever (greater than 100.4 F or 38 C)?: No Have you tested positive for COVID-19: No Exposed to someone with COVID-19 in past 14 days?: No Do you have a sore throat?: No Do you have a cough?: No Do you have any weakness?: No Are you experiencing any nausea/vomitting?: No Do you have any diarrhea?: No Are you experiencing any unusual bleeding?: No Do you have any muscle aches/pain?: No Do you have any abdominal pain?: No Are you experiencing loss of taste or smell?: No Other Medical History Have you received the Flu Vaccine for this season: No Have you received the Pneumonia Vaccine: No Meds Home Medications and Allergies Home Medications ?Medication ?Instructions ?Recorded ?Confirmed ?Type amlodipine 10 mg tablet 10 mg PO DAILY 09/18/24 09/18/24 History aspirin 81 mg tablet,delayed 81 mg PO DAILY 09/18/24 09/18/24 History release fluoxetine 20 mg capsule 20 mg PO DAILY 09/18/24 09/18/24 History lisinopril 10 mg tablet 10 mg PO DAILY 09/18/24 09/18/24 History semaglutide 1 mg/dose (4 mg/3 mL) 1 mg SQ WEEKLY 09/18/24 09/18/24 History subcutaneous pen injector (Ozempic) tamsulosin 0.4 mg capsule 0.4 mg PO HS 09/18/24 09/18/24 History trazodone 100 mg tablet 100 mg PO HS 09/18/24 09/18/24 History New Prescriptions to Start Prescriptions: Allergies Allergy/AdvReac Type Severity Reaction Status Date / Time No Known Allergies Allergy Verified 09/18/24 15:42 Exam Data for Last 24 hours Vital signs and Labs for Last 24 Hours: Temp Pulse Resp BP Pulse Ox O2 Del Method 98.1 F 58 L 17 116/77 96 Room Air 09/18/24 20:00 09/18/24 21:00 09/18/24 21:00 09/18/24 21:00 09/18/24 21:00 09/18/24 21:00 Laboratory Results - last 24 hr 09/18/24 08:32: SARS-CoV-2 (PCR) Not detected, Influenza A Untype (PCR) Not detected, Influenza Type B (PCR) Not detected 09/18/24 08:37: WBC 9.9, RBC 6.13, Hgb 19.2 H, Hct 57.2 H, MCV 93.3, MCH 31.5 H, MCHC 33.7, RDW 12.9, Plt Count 216, MPV 10.2, Neut % (Auto) 62.4, Lymph % (Auto) 29.0, [place] % (Auto) 6.7, Eos % (Auto) 1.0, Baso % (Auto) 0.5, Neut # (Auto) 6.2, Lymph # (Auto) 2.9, [place] # (Auto) 0.7, Eos # (Auto) 0.1, Baso # (Auto) 0.1, D- [place]imer 0.61 H, Sodium 141, Potassium 4.2, Chloride 105, Carbon Dioxide 26, Anion Gap 14.2, BUN 16, Creatinine 1.20, Estimated Creat Clear 108, Estimated GFR 64, Est GFR ( Amer) 77, Glucose 94, Calcium 9.5, Magnesium 1.8, Total Bilirubin 0.8, AST 46, ALT 48, Alkaline Phosphatase 82, Troponin I 0.02, NT-Pro-B Natriuret Pep 466 H, Total Protein 9.1 H, Albumin 4.7, Globulin 4.4 H, Albumin/Globulin Ratio 1.1, TSH 1.51, Free T4 1.16 09/18/24 08:37: Free T4 1.23, Urine Opiates Screen Negative, Urine Methadone Screen Negative, Ur Barbituates Screen Negative, Ur Phencyclidine Scrn Negative, Ur Amphetamines Screen Negative, U Benzodiazepines Scrn Negative, Urine Cocaine Screen Negative, U Marijuana (THC) Screen Negative, Plasma/Serum Alcohol < 10, HCV Ab EMELIA w/Rflx PCR Qn Reactive, HIV Ag/Ab Combo Qual Negative 09/18/24 14:20: Troponin I 0.05 H 09/18/24 15:54: Urine Color Yellow, Urine Appearance Clear, Urine pH 7.0, Ur Specific [place] 1.010, Urine Protein Negative, Urine Glucose (UA) Negative, Urine Ketones Negative, Urine Blood Negative, Urine Nitrate Negative, Urine Bilirubin Negative, Urine Urobilinogen 1.0, Ur Leukocyte Esterase Negative, Urine RBC 3-5, Urine WBC None, Ur Squamous Epith Cells None, Urine Bacteria None 09/18/24 17:30: Troponin I 0.14 H I & O for Last 24 hours: Intake & Output 09/15/24 09/16/24 09/17/24 09/18/24 23:59 23:59 23:59 23:59 Intake Total 1050.939 / 1050.939 Output Total 600 / 600 Balance 450.939 / 450.939 Weight 103.419 kg
[2024-09-19] VITALS (15 sets, daily range): BP systolic 91–144; BP diastolic 50–95; PULSE 60–97; RESP 13–26; TEMP 36.4–37.1; O2SAT 93–98; BMI 33.1
[2024-09-19] MEDS: ENOXAPARIN 120MG/0.8ML SYRINGE 105 MG SUBCUT ×3 (00:06→22:51)
[2024-09-19 07:06] LABS: Basophils % 0.5 % (0.1-2.0); Eosinophils # 0.1 K/mm3 (0.0-0.4); Eosinophils % 1.5 % (0.1-12.0); Hematocrit 47.5 % (42.0-52.0); Lymphocytes # 2.7 K/mm3 (0.7-4.5); Lymphocytes % 34.3 % (10-50); Mean Corpuscular HGB Conc 34.1 g/dL (31.8-35.4); Mean Corpuscular Hemoglobin 31.9 pg (27.0-31.2); Mean Corpuscular Volume 93.5 fl (80-94); Mean Platelet Volume 10.2 fl (7.4-10.4); Monocytes # 0.7 K/mm3 (0.1-1.0); Monocytes % 8.8 % (1.7-9.3); Neutrophils # 4.4 K/mm3 (1.8-7.8); Neutrophils % 54.5 % (37.0-80.0); Nucleated Red Blood Cells # 0 10^3/uL; Nucleated Red Blood Cells % 0 %; Platelet Count 166 K/mm3 (142-424); Red Blood Count 5.08 M/mm3 (4.60-6.20); Red Cell Distribution Width 12.8 % (11.5-17.5); Red Cell Distribution Width-SD 44.5 fL
[2024-09-19 07:22] LABS: Alanine Aminotransferase 33 U/L (12-78); Albumin Level 3.4 g/dl (3.5-5.0); Alkaline Phosphatase 72 U/L (38-126); Aspartate Amino Transferase 32 U/L (17-59); Bilirubin,Total 0.7 mg/dl (0.2-1.3); Blood Urea Nitrogen 15 mg/dl (9-20); Calcium 8.3 mg/dl (8.4-10.2); Carbon Dioxide 25 mmol/L (22.0-30.0); Chloride 108 mmol/L (98-107); Chol/HDL Ratio 7.4 (1-3.5); Cholesterol 171 mg/dl (140-200); Creatinine Clearance Estimated 115 mL/min (50-200); Estimated Glomerular Filt Rate 70 ml/min (>60); GFR (African American) 85 ML/MIN (>60); Globulin 3.5 g/dL (1.3-3.2); Glucose 88 mg/dl (74-100); HDL Cholesterol 23 mg/dl (40-60); Phosphorous 2.3 mg/dl (2.5-4.5); Sodium 138 mmol/L (136-145); Total Protein,Serum 6.9 g/dl (6.3-8.2); Triglycerides 242 mg/dl (30-150); VLDL Cholesterol 48 mg/dL (0-40)
[2024-09-19 07:28] LABS: Hemoglobin 16.1 g/dL (14.1-18.0)
[2024-09-19 07:33] LABS: Direct LDL Cholesterol 102.17 mg/dL (100-129)
[2024-09-19 07:56] LABS: Troponin I 0.42 ng/ml (0.00-0.034)
[2024-09-19] MEDS: METOPROLOL SUCCINATE XL 50MG TABLET 50 MG PO (08:48)
[2024-09-19] MEDS: ASPIRIN 325MG TABLET 325 MG PO (08:48)
[2024-09-19 09:46] LABS: Hemoglobin A1C 5.8 % (4.0-6.0)
--- NOTE | 2024-09-19 09:51 | PC.NURSE ---
pt moved to room 208 by wheelchair. pt is settled and call light is within reach
[2024-09-19] MEDS: NICOTINE 21MG/24HR PATCH 21 MG TD (11:03)
[2024-09-19] MEDS: 0.9 % SODIUM CHLORIDE 1000ML 1,000 ML 75 ML IV (13:40)
[2024-09-19] MEDS: FLUOXETINE 20MG CAPSULE 20 MG PO (14:06)
--- NOTE | 2024-09-19 15:54 | EXP.PN ---
Subjective *Date: 09/19/24 *Time: 15:54 Interval history: Patient feels much better today, no chest pain or shortness of breath. In sinus rhythm. Started metoprolol succinate 50 mg. Plan for [facility] on Saturday. Exam Data for Last 24 hours Vital signs and Labs for Last 24 Hours: Temp Pulse Resp BP Pulse Ox O2 Del Method 97.9 F 83 16 129/91 H 96 Room Air 09/19/24 12:00 09/19/24 12:00 09/19/24 12:00 09/19/24 12:00 09/19/24 12:00 09/19/24 15:00 Laboratory Results - last 24 hr 09/18/24 15:54: Urine Color Yellow, Urine Appearance Clear, Urine pH 7.0, Ur Specific [place] 1.010, Urine Protein Negative, Urine Glucose (UA) Negative, Urine Ketones Negative, Urine Blood Negative, Urine Nitrate Negative, Urine Bilirubin Negative, Urine Urobilinogen 1.0, Ur Leukocyte Esterase Negative, Urine RBC 3-5, Urine WBC None, Ur Squamous Epith Cells None, Urine Bacteria None 09/18/24 17:30: Troponin I 0.14 H 09/19/24 06:25: WBC 8.0, RBC 5.08, Hgb 16.1 D, Hct 47.5, MCV 93.5, MCH 31.9 H, MCHC 34.1, RDW 12.8, Plt Count 166, MPV 10.2, Neut % (Auto) 54.5, Lymph % (Auto) 34.3, [place] % (Auto) 8.8, Eos % (Auto) 1.5, Baso % (Auto) 0.5, Neut # (Auto) 4.4, Lymph # (Auto) 2.7, [place] # (Auto) 0.7, Eos # (Auto) 0.1, Baso # (Auto) 0.0, Sodium 138, Potassium 4.0, Chloride 108 H, Carbon Dioxide 25, Anion Gap 9.0, BUN 15, Creatinine 1.10, Estimated Creat Clear 115, Estimated GFR 70, Est GFR ( Amer) 85, Glucose 88, Hemoglobin A1c 5.8, Calcium 8.3 L, Phosphorus 2.3 L, Magnesium 2.0 D, Total Bilirubin 0.7, AST 32 D, ALT 33 D, Alkaline Phosphatase 72, Troponin I 0.42 H, Total Protein 6.9, Albumin 3.4 L D, Globulin 3.5 H, Albumin/Globulin Ratio 1.0 L, Triglycerides 242 H, Cholesterol 171, LDL Cholesterol Direct 102.17, VLDL Cholesterol 48 H, HDL Cholesterol 23 L, Cholesterol/HDL Ratio 7.4 H I & O for Last 24 hours: Intake & Output 09/16/24 09/17/24 09/18/24 09/19/24 23:59 23:59 23:59 23:59 Intake Total 1050.939 / 7226.104 7310 / 1671 Output Total 600 / 600 925 / 925 Balance 450.939 / 700.939 746 / 746 Weight 103.419 kg 103.782 kg Constitutional Constitutional: no acute distress *Routine HEENT Exam Head: Present normocephalic Eye: Present EOMI and PERRL ENT: Present mucous membranes moist *Routine Neck Exam Neck: Present supple; Absent lymphadenopathy *Routine Respiratory Exam Respiratory: Present CTA bilaterally *Routine Cardiovascular Exam Cardiovascular: Present RRR *Routine Abdominal Exam Abdominal: Present soft and normoactive bowel sounds; Absent tenderness *Routine Extremities Exam Extremities: Absent cyanosis, clubbing or edema *Routine Skin Exam Skin: Present warm; Absent rash *Routine Neurological Exam Neurological: Present alert and oriented X3 Assessment and Plan *Assessment and plan (1) Atrial flutter with rapid ventricular response: Status: Acute Category: Medical Code(s): I48.92 - Unspecified atrial flutter Plan Joel Lemons is a 53-year-old male with a medical history significant for [place]/CAD with stent, hypertension, anxiety/depression, treated hepatitis C who presents with acute onset heart racing that began at 3 AM this morning. Patient states he woke up with heart racing with mild shortness of breath ever since. Denies chest pain, fever/chills, abdominal pain, constipation/diarrhea, urinary symptoms, poor oral intake. He states he is never had this before. Denies recent medication changes, recreational drug use, alcohol use, but 1 pack a day current smoker. On arrival heart rate in the 130s with wide QRS likely A-fib RVR. Hemoglobin 19.2, troponin 0.05, BNP is 466. CTA chest negative for PE, CCTA pending at this time. Case discussed with ED provider and decision was made to admit patient for new onset A-fib RVR. #Aflutter RVR #NSTEMI #History of [place] with stents #CAD ? Presented with palpitations, mild shortness of breath. No signs of infection, denies alcohol use, UDS normal. Does seem dehydrated, hemoconcentrated. ? Cardiology consulted, recommended diltiazem and esmolol drip together as patient was initially refractory to diltiazem. Considered cardioversion but CCTA shows possible thrombus. Official read pending. ? Patient was given IV fluid resuscitation due to hemoconcentration, dry exam. This significantly improved RVR and eventually patient converted to normal sinus rhythm. In fact, patient became bradycardic to 30s to 40s and thus diltiazem, esmolol drips discontinued. ? A1c, TSH, LDL unremarkable. ? Troponin bumped to 0.42, patient denies chest pain or shortness of breath today. Possible NSTEMI type I vs II. Plan for LHC on Saturday per cardiology, n.p.o. at midnight on Saturday. ? Started metoprolol succinate 50 mg daily today. ? Continue aspirin 81 mg, atorvastatin 40 mg. Given aspirin 325 mg today as loading dose for NSTEMI. ? Anticoagulation with therapeutic Lovenox for now, [id number] 2. ? Follow-up ECHO. #Dominant left thyroid mass ? Seen on chest CTA and thyroid ultrasound. However, TSH, free T4 were normal. ? Patient will be referred to endocrinology for FNA. ? Of note, patient takes Ozempic putting him in a high risk for medullary thyroid cancer. Discussed with patient and agreed to discontinue. #Hypertension ? Hold home lisinopril, amlodipine due to stable pressures. #Anxiety/depression #Insomnia ? Continue home trazodone, fluoxetine. QTc 375. #BPH ? Continue home tamsulosin. Full code DVT prophylaxis: Therapeutic Lovenox as above.
--- NOTE | 2024-09-19 16:50 | PC.NURSE ---
All patient care and documentation completed by Melvi FRANCO was completed under my direct supervision. Elizabeth Flores RN
--- NOTE | 2024-09-19 17:20 | PC.NURSE ---
Patient has done well this shift. No c/o chest pain or shortness of breath. He did request a nicotine patch and it was given per AUG. VSS. Remains on room air.
[2024-09-19] MEDS: TRAZODONE 50MG TABLET 100 MG PO (20:10)
[2024-09-19] MEDS: TAMSULOSIN 0.4MG CAPSULE 0.4 MG PO (20:10)
[2024-09-19] MEDS: ATORVASTATIN 40MG TABLET 40 MG PO (20:10)
[2024-09-20] VITALS (8 sets, daily range): BP systolic 110–139; BP diastolic 74–89; PULSE 65–80; RESP 16–18; TEMP 36.4–36.7; O2SAT 96–98; BMI 33.8
--- NOTE | 2024-09-20 04:10 | PC.NURSE ---
Pt has done well this shift. Still running NSR on tele. Denies chest pain and palpitations. Pt is currently resting in bed with eyes closed. Respirations are even and unlabored. Bed is low, locked, and call light is in reach.
[2024-09-20 08:00] LABS: Basophils % 0.4 % (0.1-2.0); Eosinophils # 0.1 K/mm3 (0.0-0.4); Eosinophils % 1.6 % (0.1-12.0); Hematocrit 47.6 % (42.0-52.0); Hemoglobin 16.6 g/dL (14.1-18.0); Lymphocytes # 2.3 K/mm3 (0.7-4.5); Mean Corpuscular HGB Conc 34.9 g/dL (31.8-35.4); Mean Corpuscular Hemoglobin 32.3 pg (27.0-31.2); Mean Corpuscular Volume 92.6 fl (80-94); Mean Platelet Volume 10.8 fl (7.4-10.4); Monocytes # 0.5 K/mm3 (0.1-1.0); Monocytes % 6.9 % (1.7-9.3); Neutrophils % 57.7 % (37.0-80.0); Nucleated Red Blood Cells # 0 10^3/uL; Nucleated Red Blood Cells % 0 %; Platelet Count 161 K/mm3 (142-424); Red Blood Count 5.14 M/mm3 (4.60-6.20); Red Cell Distribution Width 12.4 % (11.5-17.5); Red Cell Distribution Width-SD 42.7 fL
[2024-09-20] MEDS: ASPIRIN EC 81MG TABLET 81 MG PO (08:04)
[2024-09-20] MEDS: METOPROLOL SUCCINATE XL 50MG TABLET 50 MG PO (08:04)
[2024-09-20] MEDS: FLUOXETINE 20MG CAPSULE 20 MG PO (08:04)
[2024-09-20 08:08] LABS: Albumin Level 3.8 g/dl (3.5-5.0); Chloride 105 mmol/L (98-107); Potassium 3.8 mmoL/L (3.5-5.1); Sodium 137 mmol/L (136-145)
[2024-09-20 08:11] LABS: Alanine Aminotransferase 36 U/L (12-78); Albumin/Globulin Ratio 1.1 (1.1-1.8); Alkaline Phosphatase 75 U/L (38-126); Anion Gap 10.8 mEq/L (5-15); Aspartate Amino Transferase 34 U/L (17-59); Bilirubin,Total 0.6 mg/dl (0.2-1.3); Blood Urea Nitrogen 13 mg/dl (9-20); Calcium 8.7 mg/dl (8.4-10.2); Carbon Dioxide 25 mmol/L (22.0-30.0); Creatinine Clearance Estimated 130 mL/min (50-200); Estimated Glomerular Filt Rate 78 ml/min (>60); GFR (African American) 95 ML/MIN (>60); Globulin 3.6 g/dL (1.3-3.2); Glucose 96 mg/dl (74-100); Magnesium 1.7 mg/dl (1.6-2.3); Total Protein,Serum 7.4 g/dl (6.3-8.2)
[2024-09-20] MEDS: NICOTINE 21MG/24HR PATCH 21 MG TD (10:31)
[2024-09-20] MEDS: MAGNESIUM SULFATE IN WATER 2 GM/50 ML PIGGYBACK IV ×2 (10:31→11:30)
[2024-09-20] MEDS: ENOXAPARIN 120MG/0.8ML SYRINGE 105 MG SUBCUT (11:30)
--- NOTE | 2024-09-20 16:06 | P.PN_ITS ---
Subjective *Date: 09/20/24 *Time: 16:06 Interval history: Patient is resting comfortably without acute distress. No chest pain, shortness of breath. N.p.o. at midnight for possible LHC in the morning. Exam Data for Last 24 hours Vital signs and Labs for Last 24 Hours: Temp Pulse Resp BP Pulse Ox O2 Del Method 98.0 F 77 18 133/89 96 Room Air 09/20/24 12:00 09/20/24 12:00 09/20/24 12:00 09/20/24 12:09/20/24 12:00 09/20/24 15:14 Laboratory Results - last 24 hr 09/18/24 08:37: Hepatitis C Ab Note Comment, HCV Quantitation Hcv not detected, HCV RNA (PCR) IU log10 TNP 09/20/24 07:05: WBC 7.0, RBC 5.14, Hgb 16.6, Hct 47.6, MCV 92.6, MCH 32.3 H, MCHC 34.9, RDW 12.4, Plt Count 161, MPV 10.8 H, Neut % (Auto) 57.7, Lymph % (Auto) 33.0, [place] % (Auto) 6.9, Eos % (Auto) 1.6, Baso % (Auto) 0.4, Neut # (Auto) 4.0, Lymph # (Auto) 2.3, [place] # (Auto) 0.5, Eos # (Auto) 0.1, Baso # (Auto) 0.0, Sodium 137, Potassium 3.8, Chloride 105, Carbon Dioxide 25, Anion Gap 10.8, BUN 13, Creatinine 1.00, Estimated Creat Clear 130, Estimated GFR 78, Est GFR ( Amer) 95, Glucose 96, Calcium 8.7, Magnesium 1.7 D, Total Bilirubin 0.6, AST 34, ALT 36, Alkaline Phosphatase 75, Total Protein 7.4, Albumin 3.8 D, Globulin 3.6 H, Albumin/Globulin Ratio 1.1 I & O for Last 24 hours: Intake & Output 09/17/24 09/18/24 09/19/24 09/20/24 23:59 23:59 23:59 23:59 Intake Total 1050.939 / 0385.342 8075 / 2151 840 / 840 Output Total 600 / 600 925 / 925 0 / 0 Balance 450.939 / 946.406 5582 / 1226 840 / 840 Weight 103.419 kg 103.782 kg 106.05 kg Constitutional Constitutional: no acute distress *Routine HEENT Exam Head: Present normocephalic Eye: Present EOMI and PERRL ENT: Present mucous membranes moist *Routine Neck Exam Neck: Present supple; Absent lymphadenopathy *Routine Respiratory Exam Respiratory: Present CTA bilaterally *Routine Cardiovascular Exam Cardiovascular: Present RRR *Routine Abdominal Exam Abdominal: Present soft and normoactive bowel sounds; Absent tenderness *Routine Extremities Exam Extremities: Absent cyanosis, clubbing or edema *Routine Skin Exam Skin: Present warm; Absent rash *Routine Neurological Exam Neurological: Present alert and oriented X3 Assessment and Plan *Assessment and plan (1) Atrial flutter with rapid ventricular response: Status: Acute Category: Medical Code(s): I48.92 - Unspecified atrial flutter Plan Joel Lemons is a 53-year-old male with a medical history significant for [place]/CAD with stent, hypertension, anxiety/depression, treated hepatitis C who presents with acute onset heart racing that began at 3 AM this morning. Patient states he woke up with heart racing with mild shortness of breath ever since. Denies chest pain, fever/chills, abdominal pain, constipation/diarrhea, urinary symptoms, poor oral intake. He states he is never had this before. Denies recent medication changes, recreational drug use, alcohol use, but 1 pack a day current smoker. On arrival heart rate in the 130s with wide QRS likely A-fib RVR. Hemoglobin 19.2, troponin 0.05, BNP is 466. CTA chest negative for PE, CCTA pending at this time. Case discussed with ED provider and decision was made to admit patient for new onset A-fib RVR. #Aflutter RVR #NSTEMI #History of [place] with stents #CAD #BOGDAN thrombus #LV dysfunction ? Presented with palpitations, mild shortness of breath. No signs of infection, denies alcohol use, UDS normal. Does seem dehydrated, hemoconcentrated. ? Cardiology consulted, recommended diltiazem and esmolol drip together as patient was initially refractory to diltiazem. Considered cardioversion but CCTA shows possible thrombus in BOGDAN. ? Patient was given IV fluid resuscitation due to hemoconcentration, dry exam. This significantly improved RVR and eventually patient converted to normal sinus rhythm. In fact, patient became bradycardic to 30s to 40s and thus diltiazem, esmolol drips discontinued. ? A1c, TSH, LDL unremarkable. ? Troponin bumped to 0.42, patient denies chest pain or shortness of breath today. Possible NSTEMI type I vs II. Plan for LHC on Saturday per cardiology, n.p.o. at midnight on Saturday night. ?Continue metoprolol succinate 50 mg daily today. Anticoagulation with therapeutic Lovenox for now, [id number] 2. ? Continue aspirin 81 mg, atorvastatin 40 mg. Given aspirin 325 mg today as loading dose for NSTEMI. ? ECHO shows LVEF 35 to 40%, increased LV wall thickness, global hypokinesis. Started Entresto, . #Dominant left thyroid mass ? Seen on chest CTA and thyroid ultrasound. However, TSH, free T4 were normal. ? Patient will be referred to ENT for FNA. ? Of note, patient takes Ozempic putting him in a high risk for medullary thyroid cancer. Discussed with patient and agreed to discontinue. #Hypertension ? Hold home lisinopril, amlodipine due to stable pressures. #Anxiety/depression #Insomnia ? Continue home trazodone, fluoxetine. QTc 375. #BPH ? Continue home tamsulosin. Full code DVT prophylaxis: Therapeutic Lovenox as above.
--- NOTE | 2024-09-20 17:11 | PC.NURSE ---
Pt has done well this shift. No complaints voiced. Pt and family had questions about the heart cath that was spoke about on Saturday and his thyroid ultrasound. VSS. Remains on room air.
[2024-09-20] MEDS: ATORVASTATIN 40MG TABLET 40 MG PO (20:42)
[2024-09-20] MEDS: TRAZODONE 50MG TABLET 100 MG PO (20:42)
[2024-09-20] MEDS: SACUBITRIL/VALSARTAN 24-26MG TABLET 1 EACH PO (20:42)
[2024-09-20] MEDS: TAMSULOSIN 0.4MG CAPSULE 0.4 MG PO (20:42)
[2024-09-21] VITALS (15 sets, daily range): BP systolic 110–149; BP diastolic 76–101; PULSE 60–87; RESP 16–20; TEMP 36.6–37.1; O2SAT 95–98; BMI 34.1
[2024-09-21] MEDS: ENOXAPARIN 120MG/0.8ML SYRINGE 105 MG SUBCUT (00:41)
[2024-09-21 06:36] LABS: Basophils % 0.4 % (0.1-2.0); Eosinophils # 0.1 K/mm3 (0.0-0.4); Eosinophils % 1.4 % (0.1-12.0); Hematocrit 48.3 % (42.0-52.0); Hemoglobin 16.7 g/dL (14.1-18.0); Lymphocytes # 2.3 K/mm3 (0.7-4.5); Lymphocytes % 31.8 % (10-50); Mean Corpuscular HGB Conc 34.6 g/dL (31.8-35.4); Mean Corpuscular Volume 92.5 fl (80-94); Mean Platelet Volume 10.5 fl (7.4-10.4); Monocytes # 0.6 K/mm3 (0.1-1.0); Neutrophils # 4.2 K/mm3 (1.8-7.8); Neutrophils % 58.1 % (37.0-80.0); Nucleated Red Blood Cells # 0 10^3/uL; Nucleated Red Blood Cells % 0 %; Platelet Count 158 K/mm3 (142-424); Red Blood Count 5.22 M/mm3 (4.60-6.20); Red Cell Distribution Width 12.2 % (11.5-17.5); Red Cell Distribution Width-SD 41.7 fL; White Blood Count 7.3 K/mm3 (4.8-10.8)
[2024-09-21 06:53] LABS: Alanine Aminotransferase 55 U/L (12-78); Albumin Level 3.8 g/dl (3.5-5.0); Aspartate Amino Transferase 46 U/L (17-59); Blood Urea Nitrogen 13 mg/dl (9-20); Carbon Dioxide 25 mmol/L (22.0-30.0); Creatinine Clearance Estimated 131 mL/min (50-200); Estimated Glomerular Filt Rate 78 ml/min (>60); GFR (African American) 95 ML/MIN (>60); Globulin 3.7 g/dL (1.3-3.2); Total Protein,Serum 7.5 g/dl (6.3-8.2)
[2024-09-21 07:04] LABS: Chloride 107 mmol/L (98-107); Sodium 138 mmol/L (136-145)
[2024-09-21 07:05] LABS: Anion Gap 9.7 mEq/L (5-15); Potassium 3.7 mmoL/L (3.5-5.1)
[2024-09-21 07:08] LABS: Alkaline Phosphatase 82 U/L (38-126); Bilirubin,Total 0.5 mg/dl (0.2-1.3); Calcium 8.5 mg/dl (8.4-10.2); Glucose 104 mg/dl (74-100); Magnesium 1.9 mg/dl (1.6-2.3)
[2024-09-21] MEDS: SACUBITRIL/VALSARTAN 24-26MG TABLET 1 EACH PO (07:43)
[2024-09-21] MEDS: ASPIRIN EC 81MG TABLET 81 MG PO (07:43)
[2024-09-21] MEDS: FLUOXETINE 20MG CAPSULE 20 MG PO (07:44)
[2024-09-21] MEDS: METOPROLOL SUCCINATE XL 50MG TABLET 50 MG PO (07:46)
[2024-09-21] MEDS: DAPAGLIFLOZIN PROPANEDIOL 10 MG TABLET PO (08:38)
--- NOTE | 2024-09-21 10:09 | IR_ITS ---
APPROVED REPORT Patient Location: Inpatient PROCEDURES Left heart catheterization Left ventriculogram Selective coronary angiogram Drug-eluting stent deployment to the proximal mid and distal dominant right coronary artery Drug-eluting stent deployment to the proximal and mid posterior descending artery INDICATION Acute non-ST elevation myocardial infarction, Coronary artery disease Informed consent was obtained prior to the procedure. COMPLICATIONS NONE Estimated Blood Loss: LESS THAN 10 ML TECHNIQUE One percent lidocaine used to anesthetize the right anterior aspect of the wrist. The right radial artery was accessed via the Seldinger technique. A 6 Upper [place] sheath was placed in the right radial artery. 2.5 mg of Verapamil, 800 mcg of nitroglycerin, 1mg Lidocaine and 5000 U Heparin were given through the arterial sheath. The 6 Upper [place] JL 3 guide catheter was also used to perform left heart catheterization, left ventriculogram and selective coronary angiogram. At the end of the diagnostic angiogram therapeutic heparin was administered giving a therapeutic ACT and the guide catheter is placed in the right coronary followed by a Choice PT extra-support wire placed distally. A guide liner was advanced and a 3.5 x 38 mm Russ frontier stent was placed in the proximal to mid right coronary at 20 radha. The guide liner was advanced and primary stenting could not be performed. Multiple balloons were used to predilate the distal dominant right coronary artery as well as the proximal and mid posterior descending artery. A total of 9 balloons were used for the pre and post dilation. Ultimately an AL 0.75 guide catheter was used to intubate the right coronary artery and a 2.5 x 38 mm Russ frontier stent was placed distal to the first stent yet still overlapping and deployed at 20 radha. A 2.5 x 26 mm Russ frontier stent was placed distal to this and then placed into the posterior descending artery. This was dilated at 24 radha. The balloon was brought back and dilated to 24 radha throughout the proximal posterior descending artery and distal right coronary. 3 mm x 20 mm noncompliant balloon was deployed at 24 radha throughout the distal right coronary artery and proximally. The 3.5 x 12 mm noncompliant balloon was then deployed at 24 radha in the distal right coronary artery and brought back incrementally throughout the entire duration of the right coronary artery back into the 3.5 mm stent. A 4 mm x 12 mm Russ frontier stent was then placed proximal to the 3.5 mm stent if still overlapping and deployed at 20 radha. The balloon was advanced and deployed at 20 radha to post dilate. LYNNE-3 flow was present before and after the procedure. At the end the procedure the apparatus was removed the sheath was removed and hemostasis was achieved using TR banding patient was transferred to the postop putting in stable condition ANGIOGRAPHIC RESULTS The left main artery Is an ostial proximal 10% stenosis The left anterior descending artery Has a stent in the proximal segment which has a thrombus in the distal portion of the stent creating a 40% to 50% stenosis. There is a 30% stenosis distal to the transitioning. There are additional 80% mid vessel and distal LAD stenoses. A large second diagonal artery has a proximal 70 to 80% concentric stenosis The circumflex artery Is a large codominant vessel and has proximal calcified 80% stenosis with additional 70% stenosis with additional 50 to 60% stenosis distal to the first obtuse marginal artery and 50 to 60% stenosis in the proximal terminal obtuse marginal artery The right coronary artery Is a large codominant vessel which has a proximal calcified 80% stenosis with additional calcified vessels in the midsegment of 70% with a distal calcified 80% stenosis and a calcified proximal posterior descending artery creating a 90% stenosis The PARRY ventriculogram reveals Normal 60% The left ventricular end-diastolic pressure 25 mmHg IMPRESSION Critical disease in the right coronary Complex intervention with successful stenting of the proximal mid distal dominant right coronary critical disease reduced to 0% with 3 contiguous drug-eluting stents Successful stenting of a complex critically diseased ostial proximal posterior descending artery critical disease reduced to 0% with 1 drug-eluting stent Persistent disease in the LAD as described above which is best managed medically Persistent severe disease in the proximal and mid circumflex artery which should be revascularized at another setting due to the complexity of today's procedure with lots of contrast and lots of radiation Normal ejection fraction Elevated LVEDP PLAN 1. Effient and aspirin 2. LDL less than 55 achieved with high intensity statin 3. Patient would like to be discharged home this evening and I see no cardiac reason why he cannot tolerate discharge 4. Patient be brought back to the [facility] in 2 weeks from undergo stenting of the circumflex artery and possible revascularization of the proximal to mid LAD with possible IVUS to assess the lesion and the stent 5. Cardiac rehabilitation 6. Avoidance of tobacco products Electronically signed by : Calixto Moreno MD 09/21/2024 15:32:59
--- NOTE | 2024-09-21 11:02 | EXP.CARD.PN ---
Subjective Subjective Date: 09/21/24 Time: 09:30 Interval history: No events over the weekend. Pt in SR, off drips. Exam Data for Last 24 hours Vital signs and Labs for Last 24 Hours: Temp Pulse Resp BP Pulse Ox O2 Del Method 98.5 F 73 20 124/83 98 Room Air 09/21/24 08:00 09/21/24 08:00 09/21/24 08:00 09/21/24 08:00 09/21/24 08:00 09/21/24 10:28 Laboratory Results - last 24 hr 09/21/24 06:12: WBC 7.3, RBC 5.22, Hgb 16.7, Hct 48.3, MCV 92.5, MCH 32.0 H, MCHC 34.6, RDW 12.2, Plt Count 158, MPV 10.5 H, Neut % (Auto) 58.1, Lymph % (Auto) 31.8, [place] % (Auto) 8.0, Eos % (Auto) 1.4, Baso % (Auto) 0.4, Neut # (Auto) 4.2, Lymph # (Auto) 2.3, [place] # (Auto) 0.6, Eos # (Auto) 0.1, Baso # (Auto) 0.0, Sodium 138, Potassium 3.7, Chloride 107, Carbon Dioxide 25, Anion Gap 9.7, BUN 13, Creatinine 1.00, Estimated Creat Clear 131, Estimated GFR 78, Est GFR ( Amer) 95, Glucose 104 H, Calcium 8.5, Magnesium 1.9 D, Total Bilirubin 0.5, AST 46 D, ALT 55 D, Alkaline Phosphatase 82, Total Protein 7.5, Albumin 3.8, Globulin 3.7 H, Albumin/Globulin Ratio 1.0 L I & O for Last 24 hours: Intake & Output 09/18/24 09/19/24 09/20/24 09/21/24 23:59 23:59 23:59 23:59 Intake Total 1050.939 / 5285.698 3875 / 2151 1580 / 1940 360 / 360 Output Total 600 / 600 925 / 925 0 / 0 Balance 450.939 / 230.450 5348 / 1226 158 / 1939 360 / 360 Weight 228 lb 228 lb 12.8 oz 233 lb 12.8 oz 235 lb 9.6 oz Constitutional Constitutional: no acute distress and cooperative *Routine HEENT Exam Eye: Present PERRL *Routine Respiratory Exam Respiratory: Present CTA bilaterally; Absent accessory muscle use, wheezes or crackles *Routine Cardiovascular Exam Cardiovascular: Present RRR, Normal S1 and Normal S2; Absent murmur, gallop or rubs *Routine Abdominal Exam Abdominal: Present soft; Absent tenderness *Routine Extremities Exam Extremities: Present pulses intact; Absent cyanosis or edema *Routine Skin Exam Skin: Present intact; Absent erythema or wounds *Routine Neurological Exam Neurological: Present alert and oriented X3 Routine Psychiatric Exam Psychiatric: Present cooperative Progress Note: A&P Assessment and plan (1) Atrial flutter with rapid ventricular response: Status: Acute (2) Coronary artery disease: Status: Acute (3) HFrEF (heart failure with reduced ejection fraction): Status: Acute Assessment and Plan Assessment and Plan for All Diagnoses:: A-fib RVR - new dx this admission in setting of elevated Trop and new HFrEF - converted with rate control - possible LA thrombus on CCTA - Cont Lovenox and Metoprolol - cath pending - will need 2 week monitor and OAC at DC CAD w/NSTEMI - hx of ME/stenting at age 29, no f/u since then - came here with new A-fib RVR, HFrEF and pos trop x3 - EKG now SR but suggestive of old anteroseptal ME with q-waves in V3, V4, no prior for comparison - CCS = 0 - Cont DAPT, BB, Statin - [facility] today HFrEF - new dx this admission with EF 35-40% in setting of new A-fib RVR and NSTEMI - proBNP = 411 on admission, no edema/effusion on CT, euvolemic on exam - GDMT initiated and is being tolerated so far - Farxiga, Entresto, Toprol, consider Aldactone later due to BP and noncompliance Thyroid Mass - 5.8cm mass left lobe, noted incidentally on CT chest and confirmed w/thyroid US - thyroid labs normal - pt was on Ozempic at home - will need OP FNA Htn - well controlled 120s on HF GDMT 09/21 Plan: [facility] today, further plans pending results - possible DC today.
[2024-09-21] MEDS: 0.9 % SODIUM CHLORIDE 500 ML 25 ML IV (13:11)
[2024-09-21] MEDS: diphenhydrAMINE 50MG/ML VIAL 50 MG IV (13:12)
[2024-09-21] MEDS: VERAPAMIL 2.5MG/ML 2ML VIAL 2.5 MG IV (13:12)
[2024-09-21] MEDS: MIDAZOLAM HCL 1MG/ML 5ML VIAL 1 MG IV (13:12)
[2024-09-21] MEDS: NITROGLYCERIN 800MCG/8ML SYR (CATH LAB) 800 MCG IA (13:13)
[2024-09-21] MEDS: FENTANYL 100MCG/2ML VIAL 50 MCG IV (13:13)
[2024-09-21] MEDS: HEPARIN 1,000 UNITS/ML 10ML VIAL (CATH LAB) 5000 UNIT IV (13:14)
[2024-09-21] MEDS: HEPARIN 1,000 UNITS/500ML NS (CATH LAB) 3000 UNIT IV (13:14)
[2024-09-21] MEDS: PRASUGREL 10MG TAB 60 MG PO (15:15)
--- NOTE | 2024-09-21 15:56 | P.DS_ITS ---
General Admission date:: 09/18/24 Hospital Course Hospital Course Hospital Course: Joel Lemons is a 53-year-old male with a medical history significant for MD/CAD with stent, hypertension, anxiety/depression, treated hepatitis C who presents with acute onset heart racing that began at 3 AM this morning. Patient states he woke up with heart racing with mild shortness of breath ever since. Denies chest pain, fever/chills, abdominal pain, constipation/diarrhea, urinary symptoms, poor oral intake. He states he is never had this before. Denies recent medication changes, recreational drug use, alcohol use, but 1 pack a day current smoker. On arrival heart rate in the 130s with wide QRS likely A-fib RVR. Hemoglobin 19.2, troponin 0.05, BNP is 466. CTA chest negative for PE, CCTA pending at this time. Case discussed with ED provider and decision was made to admit patient for new onset A-fib RVR. #Aflutter RVR #NSTEMI #History of MD with stents #CAD #BOGDAN thrombus #HFrEF #Hypertension ? Presented with palpitations, mild shortness of breath. No signs of infection, denies alcohol use, UDS normal. Did seem dehydrated, hemoconcentrated. ? Converted to normal sinus rhythm with IV fluid and rate control. Transition to metoprolol succinate 100 mg. ? Troponin bumped to 0.42. Cardiology consulted, s/p LHC 09/21/2024 with FOX x 3 to RCA and FOX x 1 to PDA. Recommended repeat LHC in 2 weeks for PCI for critical disease in LCx, LAD. ? ECHO shows LVEF 35 to 40%, increased LV wall thickness, global hypokinesis. Started Entresto, Farxiga. ? CCTA suggests BOGDAN thrombus. ? A1c, TSH, LDL unremarkable. Current smoker, counseled on smoke cessation. ? Discharged with aspirin 81 mg, prasugrel 10 mg, atorvastatin 40 mg, metoprolol succinate 100 mg, Eliquis 5 mg twice daily, Entresto 24/26 mg, Farxiga 10 mg. ? Will follow-up with cardiology within 2 weeks. #Dominant left thyroid mass ? Seen on chest CTA and thyroid ultrasound. However, TSH, free T4 were normal. ? Patient will be referred to ENT for FNA. ? Of note, patient takes Ozempic putting him in a high risk for medullary thyroid cancer. Discussed with patient and agreed to discontinue. #Anxiety/depression #Insomnia ? Continue home trazodone, fluoxetine. QTc 375. #BPH ? Continue home tamsulosin. Exam Data for Last 24 hours Vital signs and Labs for Last 24 Hours: Temp Pulse Resp BP Pulse Ox O2 Del Method 98.7 F 77 20 119/90 96 Room Air 09/21/24 12:00 09/21/24 15:27 09/21/24 15:27 09/21/24 15:27 09/21/24 15:27 09/21/24 15:27 Laboratory Results - last 24 hr 09/21/24 06:12: WBC 7.3, RBC 5.22, Hgb 16.7, Hct 48.3, MCV 92.5, MCH 32.0 H, MCHC 34.6, RDW 12.2, Plt Count 158, MPV 10.5 H, Neut % (Auto) 58.1, Lymph % (Auto) 31.8, [place] % (Auto) 8.0, Eos % (Auto) 1.4, Baso % (Auto) 0.4, Neut # (Auto) 4.2, Lymph # (Auto) 2.3, [place] # (Auto) 0.6, Eos # (Auto) 0.1, Baso # (Auto) 0.0, Sodium 138, Potassium 3.7, Chloride 107, Carbon Dioxide 25, Anion Gap 9.7, BUN 13, Creatinine 1.00, Estimated Creat Clear 131, Estimated GFR 78, Est GFR ( Amer) 95, Glucose 104 H, Calcium 8.5, Magnesium 1.9 D, Total Bilirubin 0.5, AST 46 D, ALT 55 D, Alkaline Phosphatase 82, Total Protein 7.5, Albumin 3.8, Globulin 3.7 H, Albumin/Globulin Ratio 1.0 L I & O for Last 24 hours: Intake & Output 09/18/24 09/19/24 09/20/24 09/21/24 23:59 23:59 23:59 23:59 Intake Total 1050.939 / 2584.077 7011 / 2151 1580 / 1940 360 / 360 Output Total 600 / 600 925 / 925 0 / 0 Balance 450.939 / 138.920 4542 / 1226 1580 / 1940 360 / 360 Weight 103.419 kg 103.782 kg 106.05 kg 106.866 kg Constitutional Constitutional: no acute distress *Routine HEENT Exam Head: Present normocephalic Eye: Present EOMI and PERRL ENT: Present mucous membranes moist *Routine Neck Exam Neck: Present supple; Absent lymphadenopathy *Routine Respiratory Exam Respiratory: Present CTA bilaterally *Routine Cardiovascular Exam Cardiovascular: Present RRR *Routine Abdominal Exam Abdominal: Present soft and normoactive bowel sounds; Absent tenderness *Routine Extremities Exam Extremities: Absent cyanosis, clubbing or edema *Routine Skin Exam Skin: Present warm; Absent rash *Routine Neurological Exam Neurological: Present alert and oriented X3 Results Data Completed and Pending Labs on day of discharge: Labs from last 24 hours 09/21/24 06:12 WBC 7.3 RBC 5.22 Hgb 16.7 Hct 48.3 MCV 92.5 MCH 32.0 H MCHC 34.6 RDW 12.2 Plt Count 158 MPV 10.5 H Neut % (Auto) 58.1 Lymph % (Auto) 31.8 [place] % (Auto) 8.0 Eos % (Auto) 1.4 Baso % (Auto) 0.4 Neut # (Auto) 4.2 Lymph # (Auto) 2.3 [place] # (Auto) 0.6 Eos # (Auto) 0.1 Baso # (Auto) 0.0 Sodium 138 Potassium 3.7 Chloride 107 Carbon Dioxide 25 Anion Gap 9.7 BUN 13 Creatinine 1.00 Estimated Creat Clear 131 Estimated GFR 78 Est GFR ( Amer) 95 Glucose 104 H Calcium 8.5 Magnesium 1.9 D Total Bilirubin 0.5 AST 46 D ALT 55 D Alkaline Phosphatase 82 Total Protein 7.5 Albumin 3.8 Globulin 3.7 H Albumin/Globulin Ratio 1.0 L DS: Diagnosis Discharge Diagnosis (1) Atrial flutter with rapid ventricular response: Status: Acute Code(s): I48.92 - Unspecified atrial flutter (2) Coronary artery disease: Status: Acute Code(s): I25.10 - Atherosclerotic heart disease of [place] coronary artery without angina pectoris (3) HFrEF (heart failure with reduced ejection fraction): Status: Acute Code(s): I50.20 - Unspecified systolic (congestive) heart failure Meds Home Medications and Allergies Home Medications ?Medication ?Instructions ?Recorded ?Confirmed ?Type aspirin 81 mg tablet,delayed 81 mg PO DAILY 04/11/25 04/11/25 History release fluoxetine 20 mg capsule 20 mg PO DAILY 09/18/24 09/18/24 History semaglutide 1 mg/dose (4 mg/3 mL) 1 mg SQ WEEKLY 09/18/24 09/18/24 History subcutaneous pen injector (Ozempic) tamsulosin 0.4 mg capsule 0.4 mg PO HS 09/18/24 09/18/24 History trazodone 100 mg tablet 100 mg PO HS 09/18/24 09/18/24 History apixaban 5 mg tablet (Eliquis) 5 mg PO BID #30 tabs 09/21/24 Rx atorvastatin 40 mg tablet 40 mg PO HS 30 days #30 tabs 09/21/24 Rx dapagliflozin propanediol 10 mg 10 mg PO DAILY 30 days #30 tabs 09/21/24 Rx tablet (Farxiga) metoprolol succinate 50 mg 50 mg PO DAILY 30 days #30 tabs 09/21/24 Rx tablet,extended release 24 hr (Toprol XL) nicotine 21 mg/24 hr daily 21 mg transdermal DAILYP PRN 09/21/24 Rx transdermal patch Nicotine Cravings 30 days #28 ea prasugrel HCl 10 mg tablet 10 mg PO DAILY 30 days #30 tabs 09/21/24 Rx sacubitril 24 mg-valsartan 26 mg 1 tab PO BID 30 days #60 tabs 09/21/24 Rx tablet (Entresto) New Prescriptions to Start Prescriptions: apixaban [Eliquis] Eduin,Joesph atorvastatin Eduin,Joesph dapagliflozin propanediol [Farxiga] Joesph Denny metoprolol succinate [Toprol XL] Eduin,Joesph nicotine Eduin,Joesph prasugrel HCl Eduin,Joesph sacubitril-valsartan [Entresto] Joesph Denny Allergies Allergy/AdvReac Type Severity Reaction Status Date / Time No Known Allergies Allergy Verified 09/18/24 15:42 Discharge Plan Disposition Patient Disposition: Home, Self-Care Condition: Fair Discharge Order Discharge Orders: Discharge Order (Routine); Ordered 09/21/24 Ordered By: Joesph Denny Follow up Plan Follow up with: Julian Luis PA [Physician [employer] Inspector] - 09/28/24 8:30 am Olegario Samaniego [Primary Care Provider] - 09/28/24 2:30 pm Toma Torres APRN [Nurse Practitioner] - 09/28/24 Prescriptions/Medication Reconciliation: New atorvastatin 40 mg Tablet 40 mg PO HS 30 Days Qty: 30 0RF dapagliflozin propanediol [Farxiga] 10 mg Tablet 10 mg PO DAILY 30 Days Qty: 30 0RF metoprolol succinate [Toprol XL] 50 mg Tablet Extended Release 24 Hr 50 mg PO DAILY 30 Days Qty: 30 0RF prasugrel HCl 10 mg Tablet 10 mg PO DAILY 30 Days Qty: 30 0RF Entresto 24-26 mg Tablet 1 tab PO BID 30 Days Qty: 60 0RF Eliquis 5 mg tablet 5 mg PO BID Qty: 30 0RF nicotine 21 mg/24 hr Patch 24 Hour 21 mg transdermal DAILYP PRN (Reason: Nicotine Cravings) 30 Days Qty: 28 0RF Continued aspirin 81 mg tablet,delayed release (DR/EC) 81 mg PO DAILY Patient Comments: TAKE 1 TABLET BY MOUTH EVERY DAY tamsulosin 0.4 mg capsule 0.4 mg PO HS Patient Comments: TAKE 1 CAPSULE BY MOUTH EVERY DAY FOR URINATION trazodone 100 mg tablet 100 mg PO HS Patient Comments: TAKE 1 TABLET BY MOUTH EVERYDAY AT BEDTIME fluoxetine 20 mg capsule 20 mg PO DAILY Patient Comments: TAKE 1 CAPSULE BY MOUTH EVERY DAY FOR MOOD Ozempic 1 mg/dose (4 mg/3 mL) pen injector 1 mg SQ WEEKLY Patient Comments: INJECT 1 MG UNDER THE SKIN ONCE A WEEK Discontinued amlodipine 10 mg tablet 10 mg PO DAILY Patient Comments: TAKE 1 TABLET BY MOUTH EVERY DAY FOR BLOOD PRESSURE lisinopril 10 mg tablet 10 mg PO DAILY Patient Comments: TAKE 1 TABLET BY MOUTH EVERY DAY TO IMPROVE BLOOD PRESSURE Problem Reconciliation Problems Reviewed?: Yes Patient Discharge Instructions Additional Instructions: Please follow-up with ENT for further evaluation of your left thyroid enlargement. Patient Instructions: Atrial Flutter Print Language: Bahamian Providers Primary Care Provider: Olegario Samaniego Admit Provider: Joesph Denny Attending Provider: Joesph Denny
[2024-09-21] MEDS: IOPAMIDOL-370 (76%);100ML BOTTLE 240 ML IV (16:13)
[2024-09-21 16:20] LABS: CATHL Activated Clotting Time 370 SEC (74-125)
--- NOTE | 2024-09-21 17:43 | PC.NURSE ---
pt. refused the rest of his vitals after 171.
--- NOTE | 2024-09-22 10:13 | SW/DCPLANNER ---
Spoke with patient on the phone. patient stated that he is doing okay. Patient stated that he is aware of his upcoming appointments. 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 Patient stated that he has no concerns or questions at this time. Mary Zaldivar
[2024-09-23 19:42] LABS: Calcitonin 2.4 pg/mL (0.0-8.4)
== END 2024-09-21 18:23 | disposition home or self-care (01) | DRG 321 ==
LOC: ER 10:43 → 2ND 10:59
PROVIDERS: Internal Medicine; Physician Assistant; Admitting Provider Student in an Organized Health Care Education/Training Program; Emergency Provider Emergency Medicine; PCP Family Medicine; Visit Provider Student in an Organized Health Care Education/Training Program
PROC: 4A023N7 Measurement of Cardiac Sampling and Pressure, Left Heart, Percutaneous Approach (ICD-10-PCS; principal; 2024-09-21 10:30)
DX: I11.0 Hypertensive heart disease with heart failure (principal); I21.4 Non-ST elevation (NSTEMI) myocardial infarction; R00.2 Palpitations; I50.22 Chronic systolic (congestive) heart failure; G47.00 Insomnia, unspecified; F41.9 Anxiety disorder, unspecified; F32.A Depression, unspecified; F17.210 Nicotine dependence, cigarettes, uncomplicated; N40.0 Benign prostatic hyperplasia without lower urinary tract symptoms; J44.9 Chronic obstructive pulmonary disease, unspecified; I25.10 Atherosclerotic heart disease of native coronary artery without angina pectoris; E04.1 Nontoxic single thyroid nodule; I48.91 Unspecified atrial fibrillation; E66.9 Obesity, unspecified; Z68.33 Body mass index [BMI] 33.0-33.9, adult; Z86.19 Personal history of other infectious and parasitic diseases; Z79.82 Long term (current) use of aspirin; Z79.899 Other long term (current) drug therapy; Z79.85 Long-term (current) use of injectable non-insulin antidiabetic drugs
CPT/HCPCS: 36415; 71045; 71275; 75574; 76536; 80053; 80061; 80307; 80320; 81001; 82308; 83036; 83735; 83880; 84100; 84439; 84443; 84484; 85025; 85347; 85378; 86803; 87389; 87522; 87636; 92928; 92929; 93005; 93308; 93458; 99152; 99153; 99285; C1725; C1769; C1874; C9600; C9601; J1200; J1644; J1650; J2250; J3010; J3475; J7030; J7120; Q9967

== ENCOUNTER 2024-09-28 08:10 | Outpatient (CLI) | payer MEDICAID, SELFPAY ==
--- OUTSIDE RECORDS SUMMARY | 2024-09-28 08:13 | XMS_ITS | Data Portability ---
Author Organization [facility] ADMIN Address [address] [place] [id number] Assessment No assessment recorded. Plan of Treatment Reminders Order Date Submit Date Provider Last Modified By Organization Details Last Modified Time Details Appointments None recorded. Lab HbA1c (hemoglobin A1c), blood 2023 [facility] (Lab Registration) , [address] , [place], [address], 4 09:24:09 CBC 2023 [facility] (Lab Registration) , [address], [place], [address], 4 09:24:08 CMP, serum or plasma 2023 [facility] (Lab Registration) , [address] [place], [address], 4 09:24:08 lipid panel, serum 2023 [facility] (Lab Registration) , [address] [place], [address], 4 09:24:09 Referral None recorded. Procedures home sleep testing (PROC) 2023 [email or web address] Not available 4 10:56:57 Surgeries None recorded. Imaging US, echocardiog wilmar, transthorac ic, complete, w/ color flow 2023 [facility], [address], [place], [address], 4 09:23:53 pharmacolog ic nuclear stress test 2023 024 [facility], [address], [place], [address], 4 09:23:53 Medication Orders nitroglycer in 0.4 mg sublingual tablet 2023 024 [facility]/Pharmacy #[id number], [address] [place], [address], 14:39:38 Patient TargetsNo targets recorded. Patient InstructionsNo [...] Address Organization Details Last Updated DateTime 4 948040. 94 g 98 % 98 % 83 /min 128 mm[Hg] 82 mm[Hg] [facility] & [place] 4 14:36:34 Social History None recorded. Functional Status None recorded. Mental Status None recorded. Family History Nothing Reported. Medical History No medical history recorded. Past Encounters Encounter ID Performer Location Encounter Start Date Encounter Closed Date Diagnosis/Indication Diagnosis SNOMED-CT Code Diagnosis ICD10 Code Diagnosis Note [id number] Eugenia Langley MD [address] [place] [address] 09/16/2023 14:35:25 09/16/2023 14:46:41 Dyspnea on exertion 27962751 R06.09 Exertional shortness of breath in a patient with multiple risk factors for coronary artery disease and history of coronary stents. Could be angina equivalent . We will proceed with ischemic workup. History of placement of stent for coronary artery disease 453360627 Z95.5 multiple coronary stents when the patient was 39 years old for heart attack as per the patient done at [facility] records not available to us. No chest pain. No ischemic changes on the EKG. Continue medical treatment. Essential hypertension 11178988 I10 controlled continue medication s. Dyslipidemia 649453305 E 78.5 On statin follow up fasting lipid profile. Cigarette smoker 9775390 7 F17.210 Strongly encouraged the patient to quit smoking. I had a lengthy discussion with the patient regarding quitting smoking and available measuremen t to help him quit smoking including support groups nicotine patches or medication like Chantix. Obesity 829925088 E66.9 Recommend sleep apnea evaluation . Type 2 rupali betes mellitus without complication 077663259 E11.9 Follow up hemoglobin A1c. Health Concerns Section Related Observation LastModified by Organization Detai ls LastModified Time None Recorded Concern Status LastModified by Organization Details LastModified Time None Recorded Advance Directives Directive None Recorded Payers Encounter Date Sequence Insurance Name Policy Number Policy Arreola Covered Member ID Arreola Member ID Guarantor Name 09/16/2023 1 [employer] (MEDICAID REPLACEMENT - HMO) Joel Lemons [id number] Joel Lemons Notes Date Note Type Note [...] bpm no ischemic changes. Eugenia Langley MD [address] [place] [address], [phone], [facility] & [place] 09/16/2023 14:54:20
[2024-09-28 08:52] LABS: Basophils # 0.1 K/mm3 (0-0.2); Basophils % 0.7 % (0.1-2.0); Eosinophils # 0.2 Kmm3 (0.0-0.4); Eosinophils % 1.8 % (0.1-12.0); Hematocrit 49.3 % (42.0-52.0); Lymphocytes # 2.8 K/mm3 (0.7-4.5); Lymphocytes % 30.3 % (10-50); Mean Corpuscular HGB Conc 34.5 g/dL (31.8-35.4); Mean Corpuscular Hemoglobin 32.4 pg (27.0-31.2); Mean Corpuscular Volume 94.1 fl (80-94); Mean Platelet Volume 10.4 fl (7.4-10.4); Monocytes # 0.7 K/mm3 (0.1-1.0); Monocytes % 7.6 % (1.7-9.3); Neutrophils # 5.5 K/mm3 (1.8-7.8); Nucleated Red Blood Cells # 0 10^3/uL; Nucleated Red Blood Cells % 0 %; Platelet Count 201 K/mm3 (142-424); Red Blood Count 5.24 M/mm3 (4.60-6.20); Red Cell Distribution Width 12.9 % (11.5-17.5); Red Cell Distribution Width-SD 44.4 fL; White Blood Count 9.3 K/mm3 (4.8-10.8)
[2024-09-28 09:12] LABS: Anion Gap 16.6 mEq/L (5-15); Blood Urea Nitrogen 15 mg/dl (9-20); Calcium 9.2 mg/dl (8.4-10.2); Carbon Dioxide 22 mmol/L (22.0-30.0); Chloride 106 mmol/L (98-107); Estimated Glomerular Filt Rate 78 ml/min (>60); GFR (African American) 95 ML/MIN (>60); Glucose 103 mg/dl (74-100); Potassium 4.6 mmoL/L (3.5-5.1); Sodium 140 mmol/L (136-145)
== END 2024-09-28 23:59 | disposition home or self-care (01) ==
LOC: LAB 08:12
PROVIDERS: PCP Family Medicine; Visit Provider Internal Medicine
DX: I25.10 Atherosclerotic heart disease of native coronary artery without angina pectoris (principal); I50.20 Unspecified systolic (congestive) heart failure
CPT/HCPCS: 36415; 80048; 85025

== ENCOUNTER 2024-10-09 07:46 | Day surgery (SDC) | payer MEDICAID, SELFPAY ==
[2024-10-09] VITALS (10 sets, daily range): BP systolic 119–160; BP diastolic 55–100; PULSE 64–75; RESP 16–20; O2SAT 95–97; BMI 34.4
--- NOTE | 2024-10-09 07:01 | IR_ITS ---
APPROVED REPORT Patient Location: Outpatient PROCEDURES Drug-eluting stent deployment to the proximal and mid dominant circumflex artery Drug-eluting stent deployment to the proximal and mid LAD INDICATION Coronary artery disease Informed consent was obtained prior to the procedure. COMPLICATIONS none Estimated Blood Loss: less than 10ml TECHNIQUE One percent lidocaine used to anesthetize the right anterior aspect of the wrist. The right radial artery was accessed via the Seldinger technique. A 6 Portuguese sheath was placed in the right radial artery. 2.5 mg of Verapamil, 800 mcg of nitroglycerin, 1mg Lidocaine and 5000 U Heparin were given through the arterial sheath. A 6 Portuguese JL 3 guide catheter was placed in the left main artery and a Choice PT extra-support wire was placed into the circumflex artery. A guide liner was advanced and a 3 mm x 38 mm [place] frontier stent was deployed in the proximal to mid right coronary artery at 20 radha. A 3.5 x 12 mm noncompliant balloon was then deployed in the proximal and midportion and deployed at 24 radha. This did not reduce the stenosis to satisfaction therefore a 4 mm x 12 mm noncompliant balloon was advanced and at 18 radha the lesion finally was reduced to 0% and fully expanded. LYNNE-3 flow was present before and after the procedure. Following this an additional wire was placed down the LAD and the guide liner was then placed down the LAD. An intravascular ultrasound probe was advanced however would not extend beyond the severe calcified lesion therefore MLA could not be measured. The entire proximal LAD was heavily calcified with mild to moderate stenosis. A 3 mm x 26 mm [place] frontier stent was deployed in the proximal to mid LAD at 20 radha. Intravascular ultrasound probe was then advanced and a 3.5 x 38 mm Russ frontier stent was placed in the proximal segment of the LAD overlapping with the proximal portion of the 3 mm stent. This was deployed at 20 radha. LYNNE-3 flow was present before and after the procedure. IMPRESSION Successful stenting of the proximal to mid circumflex artery severe disease reduced to 0% with 1 drug-eluting stent Successful stenting of the proximal to mid LAD severe disease reduced to 0% with 2 contiguous drug-eluting stents Successful intravascular ultrasound interrogation of the LAD PLAN 1. Continue dual antiplatelet therapy 2. LDL less than 55 to achieve that high intensity statin 3. Avoid tobacco products 4. Risk factor modification 5. Cardiac rehabilitation Electronically signed by : Calixto Moreno MD 10/09/2024 12:56:04
[2024-10-09 08:10] LABS: Basophils # 0.1 K/mm3 (0-0.2); Basophils % 0.6 % (0.1-2.0); Eosinophils # 0.1 Kmm3 (0.0-0.4); Eosinophils % 1.5 % (0.1-12.0); Hematocrit 50.1 % (42.0-52.0); Lymphocytes # 2.2 K/mm3 (0.7-4.5); Lymphocytes % 25.8 % (10-50); Mean Corpuscular HGB Conc 33.9 g/dL (31.8-35.4); Mean Corpuscular Hemoglobin 32.4 pg (27.0-31.2); Mean Corpuscular Volume 95.6 fl (80-94); Mean Platelet Volume 10.4 fl (7.4-10.4); Monocytes # 0.6 K/mm3 (0.1-1.0); Monocytes % 6.8 % (1.7-9.3); Neutrophils # 5.5 K/mm3 (1.8-7.8); Neutrophils % 64.8 % (37.0-80.0); Nucleated Red Blood Cells # 0 10^3/uL; Nucleated Red Blood Cells % 0 %; Platelet Count 166 K/mm3 (142-424); Red Blood Count 5.24 M/mm3 (4.60-6.20); Red Cell Distribution Width 13.8 % (11.5-17.5); Red Cell Distribution Width-SD 47.8 fL; White Blood Count 8.5 K/mm3 (4.8-10.8)
[2024-10-09 08:27] LABS: Anion Gap 7.6 mEq/L (5-15); Blood Urea Nitrogen 23 mg/dl (9-20); Calcium 9.4 mg/dl (8.4-10.2); Carbon Dioxide 29 mmol/L (22.0-30.0); Chloride 107 mmol/L (98-107); Creatinine Clearance Estimated 129 mL/min (50-200); Estimated Glomerular Filt Rate 78 ml/min (>60); GFR (African American) 95 ML/MIN (>60); Glucose 119 mg/dl (74-100); Potassium 4.6 mmoL/L (3.5-5.1); Sodium 139 mmol/L (136-145)
[2024-10-09] MEDS: LIDOCAINE 1% 10ML MDV 10 ML IJ (09:58)
[2024-10-09] MEDS: 0.9 % SODIUM CHLORIDE 500 ML 25 ML IV (09:58)
[2024-10-09] MEDS: HEPARIN 1,000 UNITS/500ML NS (CATH LAB) 3000 UNIT IV (09:58)
[2024-10-09] MEDS: VERAPAMIL 2.5MG/ML 2ML VIAL 2.5 MG IV (09:59)
[2024-10-09] MEDS: diphenhydrAMINE 50MG/ML VIAL 50 MG IV (09:59)
[2024-10-09] MEDS: HEPARIN 1,000 UNITS/ML 10ML VIAL (CATH LAB) 5000 UNIT IV (09:59)
[2024-10-09] MEDS: NITROGLYCERIN 800MCG/8ML SYR (CATH LAB) 800 MCG IA (10:00)
[2024-10-09] MEDS: MIDAZOLAM HCL 1MG/ML 5ML VIAL 1 MG IV (10:51)
[2024-10-09] MEDS: FENTANYL 100MCG/2ML VIAL 50 MCG IV (10:51)
[2024-10-09] MEDS: CLOPIDOGREL 300MG TABLET 600 MG PO (10:59)
[2024-10-09] MEDS: IOPAMIDOL-370 (76%);100ML BOTTLE 95 ML IV (15:17)
[2024-10-09 15:29] LABS: CATHL Activated Clotting Time 324 SEC (74-125)
== END 2024-10-09 13:32 | disposition home or self-care (01) ==
PROVIDERS: PCP Family Medicine; Visit Provider Internal Medicine
PROC: 4A023N7 Measurement of Cardiac Sampling and Pressure, Left Heart, Percutaneous Approach (ICD-10-PCS; CPT 93452; principal; 2024-10-09 07:30)
DX: I21.4 Non-ST elevation (NSTEMI) myocardial infarction (principal); I25.10 Atherosclerotic heart disease of native coronary artery without angina pectoris; Z79.01 Long term (current) use of anticoagulants; Z79.51 Long term (current) use of inhaled steroids; Z79.899 Other long term (current) drug therapy; E78.5 Hyperlipidemia, unspecified; I11.0 Hypertensive heart disease with heart failure; J44.9 Chronic obstructive pulmonary disease, unspecified; I50.20 Unspecified systolic (congestive) heart failure; Z95.5 Presence of coronary angioplasty implant and graft; R94.31 Abnormal electrocardiogram [ECG] [EKG]; F17.210 Nicotine dependence, cigarettes, uncomplicated; I48.91 Unspecified atrial fibrillation; I77.1 Stricture of artery
CPT/HCPCS: 80048; 85025; 85347; 92928; 92978; 99152; 99153; C1725; C1769; C1874; C9600; J1200; J1644; J3010; Q9967

== ENCOUNTER 2024-10-13 08:21 | Outpatient (CLI) | payer MEDICAID, SELFPAY ==
--- OUTSIDE RECORDS SUMMARY | 2024-10-13 08:23 | XMS_ITS | Data Portability ---
Author Organization [facility] ADMIN Address [address] [place] [phone] Assessment No assessment recorded. Plan of Treatment Reminders Order Date Submit Date Provider Last Modified By Organization Details Last Modified Time Details Appointments None recorded. Lab HbA1c (hemoglobin A1c), blood [facility]23 [facility] , [address] , [place], [address], 4 09:24:09 CBC 2023 [facility] ([facility]) , [address], [place], [address], 4 09:24:08 CMP, serum or plasma 2023 [facility] ([facility]) , [address] [place], [address], 4 09:24:08 lipid panel, serum 2023 [facility] ([facility] , [address] [place], [address], 4 09:24:09 Referral None recorded. Procedures home sleep testing (PROC) 2023 [email or web address] Not available 4 10:56:57 Surgeries None recorded. Imaging US, echocardiog wilmar, transthorac ic, complete, w/ color flow 2023 [facility], [address], [place], [address], 4 09:23:53 pharmacolog ic nuclear stress test 2023 024 [facility], [address], [place], [address], 4 09:23:53 Medication Orders nitroglycer in 0.4 mg sublingual tablet 2023 024 [facility]/Pharmacy #[id number], [address] [place], [address], 14:39:38 Patient TargetsNo targets recorded. Patient InstructionsNo [...] Address Organization Details Last Updated DateTime 4 660902. 94 g 98 % 98 % 83 /min 128 mm[Hg] 82 mm[Hg] [facility] & [place] 4 14:36:34 Social History None recorded. Functional Status None recorded. Mental Status None recorded. Family History Nothing Reported. Medical History No medical history recorded. Past Encounters Encounter ID Performer Location Encounter Start Date Encounter Closed Date Diagnosis/Indication Diagnosis SNOMED-CT Code Diagnosis ICD10 Code Diagnosis Note [id number] Eugenia Langley MD [address] [place] [address] 09/16/2023 14:35:25 09/16/2023 14:46:41 Dyspnea on exertion 31005638 R06.09 Exertional shortness of breath in a patient with multiple risk factors for coronary artery disease and history of coronary stents. Could be angina equivalent . We will proceed with ischemic workup. History of placement of stent for coronary artery disease 609461605 Z95.5 multiple coronary stents when the patient was 39 years old for heart attack as per the patient done at [facility] records not available to us. No chest pain. No ischemic changes on the EKG. Continue medical treatment. Essential hypertension 65167336 I10 controlled continue medication s. Dyslipidemia 654597502 E 78.5 On statin follow up fasting lipid profile. Cigarette smoker 1798913 7 F17.210 Strongly encouraged the patient to quit smoking. I had a lengthy discussion with the patient regarding quitting smoking and available measuremen t to help him quit smoking including support groups nicotine patches or medication like Chantix. Obesity 222406695 E66.9 Recommend sleep apnea evaluation . Type 2 rupali betes mellitus without complication 283863091 E11.9 Follow up hemoglobin A1c. Health Concerns Section Related Observation LastModified by Organization Detai ls LastModified Time None Recorded Concern Status LastModified by Organization Details LastModified Time None Recorded Advance Directives Directive None Recorded Payers Encounter Date Sequence Insurance Name Policy Number Policy Arreola Covered Member ID Arreola Member ID Guarantor Name 09/16/2023 1 [employer] (MEDICAID REPLACEMENT - HMO) Joel Lemons [id number] Joel Lemons Notes Date Note Type Note [...] bpm no ischemic changes. Eugenia Langley MD [address] [place] [address], [phone], [facility] & [place] 09/16/2023 14:54:20
[2024-10-13 08:39] LABS: Basophils # 0.1 K/mm3 (0-0.2); Basophils % 0.6 % (0.1-2.0); Eosinophils # 0.1 Kmm3 (0.0-0.4); Eosinophils % 1.5 % (0.1-12.0); Hematocrit 54.1 % (42.0-52.0); Lymphocytes # 2.4 K/mm3 (0.7-4.5); Lymphocytes % 28.5 % (10-50); Mean Corpuscular HGB Conc 33.3 g/dL (31.8-35.4); Mean Corpuscular Hemoglobin 31.9 pg (27.0-31.2); Mean Corpuscular Volume 95.8 fl (80-94); Mean Platelet Volume 10.2 fl (7.4-10.4); Monocytes # 0.6 K/mm3 (0.1-1.0); Monocytes % 6.7 % (1.7-9.3); Neutrophils # 5.3 K/mm3 (1.8-7.8); Neutrophils % 62.2 % (37.0-80.0); Nucleated Red Blood Cells # 0 10^3/uL; Nucleated Red Blood Cells % 0 %; Platelet Count 166 K/mm3 (142-424); Red Blood Count 5.65 M/mm3 (4.60-6.20); Red Cell Distribution Width 13.9 % (11.5-17.5); Red Cell Distribution Width-SD 48.7 fL; White Blood Count 8.5 K/mm3 (4.8-10.8)
--- NOTE | 2024-10-13 09:30 | US_ITS ---
FINAL REPORT CLINICAL HISTORY: DAVID MCKEON -- LT THYROID NODULE FINDINGS: Ultrasound guided thyroid biopsy. HISTORY: Thyroid mass. PROCEDURE: After informed consent was obtained and a time-out was performed, the patient was prepped and draped in usual sterile fashion over the anterior neck. Utilizing local anesthesia and sterile technique with a 25-gauge needle, access to the lesion was obtained. Four passes were made. The patient received no conscious sedation. The patient tolerated procedure well and left the department in good condition. IMPRESSION: Status post ultrasound guided biopsy of a thyroid nodule without immediate complication. Films reviewed , interpreted and dictated by Dr. Tabatha Cardozo. Transcribed by David Knight PA-C. Reviewed, Interpreted and Dictated by Tabatha Cardozo MD Transcribed by MIKE Cox Authenticated and [facility]
[2024-10-13 09:32] LABS: Anion Gap 8.6 mEq/L (5-15); Blood Urea Nitrogen 20 mg/dl (9-20); Calcium 9.5 mg/dl (8.4-10.2); Carbon Dioxide 26 mmol/L (22.0-30.0); Chloride 109 mmol/L (98-107); Estimated Glomerular Filt Rate 78 ml/min (>60); GFR (African American) 95 ML/MIN (>60); Glucose 112 mg/dl (74-100); Potassium 4.6 mmoL/L (3.5-5.1); Sodium 139 mmol/L (136-145)
== END 2024-10-13 23:59 | disposition home or self-care (01) ==
PROVIDERS: PCP Family Medicine; Visit Provider Internal Medicine
DX: E04.1 Nontoxic single thyroid nodule (principal); E07.9 Disorder of thyroid, unspecified; Z95.5 Presence of coronary angioplasty implant and graft
CPT/HCPCS: 10005; 36415; 80048; 85025

== ENCOUNTER 2025-03-05 06:58 | Inpatient (IN) | payer MEDICAID, SELFPAY ==
--- OUTSIDE RECORDS SUMMARY | 2023-08-08 12:21 | XMS_ITS | Encounter Summary ---
Author Organization [facility] Address [address] [place] [id number] Care Team Providers Care Feather Mixer Name Role Phone Olegario Samaniego MD Primary Care Provider [phone] Encounter Details Date Type Department Care Team (Late st Contact Info) Description 08/08/2023 11:21 AM EST Hospital Encounter [facility] [address] [place] [phone] Social History Tobacco Use Types Packs/Day Years [...] Narrative 08/09/2023 8:29 PM EST Joel Lemons [id number] 08/08/2023 Chest X-Ray PA & Lateral Indication: [...] on filedocumented in this encounter Care Teams Feather Mixer Relationship Specialty Start Date End Date Olegario Samaniego MD [address] [place] [address] PCP - General Family Medicine 05/30/23 documented as of this encounter
[2025-03-05] VITALS (54 sets, daily range): BP systolic 82–149; BP diastolic 55–122; PULSE 55–141; RESP 10–30; TEMP 36.6–37.2; O2SAT 84–99; BMI 36.1; BMI 34.9
--- NOTE | 2025-03-05 06:59 | ECG_ITS ---
APPROVED REPORT Exam: Resting ECG HR:136 bpm ECG Measurements Heart Rate 136 AXES QRSd 124 QRS -85 QT 293 T 99 QTc 373 Conclusion ATRIAL FLUTTER/TACHYCARDIA WITH RAPID VENTRICULAR RESPONSE LEFT AXIS DEVIATION [QRS AXIS < -30] ANTEROSEPTAL MYOCARDIAL INFARCTION , OF INDETERMINATE AGE [40+ ms Q WAVE IN V1-V4] ABNORMAL ECG UNCONFIRMED REPORT Electronically signed by : SKYLAR LANE, 03/05/2025 23:32:48
--- NOTE | 2025-03-05 07:09 | XR_ITS ---
FINAL REPORT CLINICAL HISTORY: Chest pain, shortness of breath FINDINGS: A portable view of the chest is obtained. There is no prior exam for comparison. Cardiac and mediastinal silhouettes are normal. The lungs are clear. There is no pleural effusion or pneumothorax. IMPRESSION: No acute process on this portable exam. Reviewed, Interpreted and Dictated by Tabatha Cardozo MD Transcribed by Simona George Authenticated and [facility]
--- OUTSIDE RECORDS SUMMARY | 2025-03-05 07:14 | XMS_ITS | Clinical Summary ---
Author Organization [facility] Address [address] [place] [id number] Care Team Providers Care Biztalk Software Developer Name Role Phone Olegario Samaniego MD Primary Care Provider [phone] Allergies No known active allergies Medications amLODIPine (NORVASC) 10 MG tablet Take 1 tablet by mouth Daily. for blood pressure. Active Aspirin Low Dose 81 MG EC tablet Take 1 tablet by mouth Daily. 4 Active FLUoxetine (PROzac) 20 MG capsule Take 1 capsule by mouth Daily. 4 Active tamsulosin (FLOMAX) 0.4 MG capsule 24 hr capsule Take 1 capsule by mouth Daily. Active traZODone (DESYREL) 100 MG tablet Take 1 tablet by mouth Every Night. 4 Active atorvastatin (LIPITOR) 80 MG tablet Take 1 tablet by mouth Daily. 4 Active ibuprofen (ADVIL,MOTRIN) 800 MG tablet Take 1 tablet by mouth Every 6 (Six) Hours As Needed for Moderate Pain. 4 Active ipratropium-alb uterol (DUO-NEB) 0.5-2.5 mg/3 ml nebulizer Take 3 mL by nebulization 4 (Four) Times a Day. 4 Active nitroglycerin (NITROSTAT) 0.[address] 1 tablet under the tongue Every 5 (Five) Minutes As Needed for Chest Pain. Active tiotropium bromide-olodate rol (Stiolto Respimat) 2.5-2.5 MCG/ACT aerosol solution inhalerIndicati ons:Mucopurulen t chronic bronchitis Inhale 2 puffs Daily. 4 g 11 4 Active albuterol sulfate HFA 108 (90 Base) MCG/ACT inhalerIndicati ons:Mucopurulen t chronic bronchitis Inhale 2 puffs Every 4 (Four) Hours As Needed for Wheezing. 18 g 11 4 Active Eliquis 5 MG tablet tablet Take 1 tablet by mouth Every 12 (Twelve) Hours. 5 Active clopidogrel (PLAVIX) 75 MG tablet Take 1 tablet by mouth Daily. 5 Active Farxiga 10 MG tablet 5 Active metoprolol succinate XL (TOPROL-XL) 50 MG 24 hr tablet 5 Active prasugrel (EFFIENT) 10 MG tablet Take 1 tablet by mouth Daily. 5 Active Entresto 24-26 MG tablet 5 Active Active Problems Problem Noted Date Diagnosed Date Mucopurulent chronic bronchitis 10/21/2024 Personal history of smoking 10/21/2024 Coronary artery disease invo lving [place] coronary artery of [place] heart with angina pectoris 10/21/2024 Immunizations Immunization Administration Dates Next Due Flu Vaccine Split Quad 05/04/2024(Deferred: Betzy ent Refused) Social History Tobacco Use Types Packs/Day Years [...] on file Sexual Orientation Not on file Last Filed Vital Signs Vital Sign Reading Time Taken Comments Blood Pressure 116/92 10/21/2024 12:35 PM EDT Pulse 90 10/21/2024 12:35 PM EDT Temperature 37.2 C (98.9 F) 05/04/2024 2:20 PM EST Respiratory Rate 18 10/31/2023 10:06 AM EDT Oxygen Saturation 99% 10/21/2024 12:35 PM EDT Inhaled Oxygen Concentration - - Weight 108 kg (239 lb) 10/21/2024 12:35 PM EDT Height 175.3 cm (5' 9 ) 10/21/2024 12:35 PM EDT Body Mass Index 35.29 10/21/2024 12:35 PM EDT Plan of Treatment Health Maintenance Due Date Last Done Comments DIABETIC EYE EXAM 12/12/1981 DIABETIC FOOT EXAM 12/12/1981 URINE MICROALBUMIN-CREATININE RATIO (uACR) 12/12/1981 Hepatitis B (1 of 3 - 19+ 3-dose series) 12/12/1990 Pneumococcal Vaccine 50+ (1 of 2 - PCV) 12/12/1990 TDAP/TD VACCINES (1 - Tdap) 12/12/1990 COLOGUARD 12/12/2016 COLON CANCER SCREENING 5 YEAR SIGMOIDOSCOPY 12/12/2016 COLONOSCOPY 12/12/2016 COLORECTAL CANCER SCREENING 12/12/2016 CT COLONOGRAPHY 12/12/2016 FECAL OCCULT BLOOD TEST 12/12/2016 FIT Testing (1 year) 12/12/2016 LUNG CANCER SCREENING 12/12/2021 ZOSTER VACCINE (1 of 2) 12/12/2021 ANNUAL PHYSICAL 08/08/2023 HEMOGLOBIN A1C 08/08/2023 HEPATITIS C SCREENING 08/08/2023 INFLUENZA VACCINE 01/08/2025 Insurance PAS[employer] BY [employer] Care Teams Biztalk Software Developer Relationship Specialty Start Date End Date Olegario Samaniego MD [address] [place] [address] PCP - General Family Medicine 05/30/23
--- OUTSIDE RECORDS SUMMARY | 2025-03-05 07:14 | XMS_ITS | Patient Health Record ---
Author Organization [facility] Address [address] [facility] [place] [address] Care Team Providers Care Track Production Engineer Name Role Phone Izaiah Naylor Primary Care Provider Allergies No Known Allergies Reason For Referral No Information Medications Medication SIG (Take, Route, Frequency, Duration) Notes Start Date End Date Status Epclusa 400-100 MG 1 tablet Orally Once a day; Duration: 84 day(s) 11/29/2021 Active Pravastatin Sodium 20 MG 1 tablet Orally daily stop Atorvastatin and take this instead; Duration: 30 day(s) 11/29/2021 Active Zoloft 50 MG 1 tablet Orally Once a day Active Duratuss Active Nicoderm CQ Active Norvasc 2.5 MG 1 tablet Orally Once a day Active Flomax 0.4 MG 1 capsule Orally Once a day Active Lisinopril 10 MG 1 tablet Orally Once a day Active Lipitor 20 MG 1 tablet Orally Once a day Active Social History Tobacco Use: Social History Observation Description Date Details (start date - stop date) Current Smoker NA - NA Tobacco Use/Smoking Question Answer Notes Are you a current smoker How often do you smoke cigarettes? every day Section Notes: Hx of tattoos, piercings Hx of tattoos, piercings Hx of tattoos, piercings Hx of tattoos, piercings Problems Problem Type SNOMED Code ICD Code Onset Dates Problem Status W/U Status Risk Notes Problem Chronic hepatitis C (541741296) Chronic viral hepatitis C (B18.2) Active confirmed Problem Hypertension (73956641) hypertension (I10) Active confirmed Problem Substance use disorder (9079017462) Substance use disorder (F19.90) Active confirmed Plan Of Treatment Pending Test Test Name Order Date HCV FibroSure 10/26/2021 Insurance Providers Payer Name Payer Address Payer Phone Subscriber Number Group Number Insured Name Patient Relationship to Insured Coverage Start Date Coverage End Date [facility] [address] [address] [place] [phone] [id number] Joel Lemons Self - patient is the insured 1 Medical (General) History Medical History History ICD Code Chronic viral hepatitis C B18.2 Substance use disorder F19.90 hypertension I10 anemia Old myocardial infarction I25.2 Benign prostatic hyperplasia with lower urinary tract symptoms N40.1 Abnormal results of kidney function stud ies R94.4 History of syphilis Z86.19 Surgical History Surgery Date(Month/Year) cardiac stent abscess, arm
--- OUTSIDE RECORDS SUMMARY | 2025-03-05 07:14 | XMS_ITS | Data Portability ---
Author Organization [facility] Address [address] [place] [phone] Assessment No assessment recorded. Plan of Treatment Reminders Order Date Submit Date Provider Last Modified By Organization Details Last Modified Time Details Appointments None recorded. Lab HbA1c (hemoglobin A1c), blood 2023 [facility] (Lab Registration) , [address] , [place], [address], 4 09:24:09 CBC 2023 [facility] (Lab Registration) , [address] [place], [address], 4 09:24:08 CMP, serum or plasma 2023 [facility] (Lab Registration) , [address] [place], [address], 4 09:24:08 lipid panel, serum 2023 [facility] (Lab Registration) , [address] [place], [address], 4 09:24:09 Referral None recorded. Procedures home sleep testing (PROC) 2023 [email or web address] Not available 10:56:57 Surgeries None recorded. Imaging US, echocardiog wilmar, transthorac ic, complete, w/ color flow 2023 [facility], [address], [place], [address], 4 09:23:53 pharmacolog ic nuclear stress test 2023 024 [facility], [address], [place], [address], 4 09:23:53 Medication Orders nitroglycer in 0.4 mg sublingual tablet 2023 024 [facility] #[id number], [address] [place], [address], 14:39:38 Patient TargetsNo targets recorded. Patient InstructionsNo [...] blood by Pulse oximetry Heart rate Systolic And Diastolic Provider Name and Address Organization Details Last Updated DateTime 4 010558. 94 g 98 % 98 % 83 /min 128/82 mm[Hg] [facility] [place] 4 14:36:34 Social History None recorded. Functional Status None recorded. Mental Status None recorded. Family History Nothing Reported. Medical History No medical history recorded. Past Encounters Encounter ID Performer Location Encounter Start Date Encounter Closed Date Diagnosis/Indication Diagnosis SNOMED-CT Code Diagnosis ICD10 Code Diagnosis IMO Codes Diagnosis Note [id number] Eugenia Langley MD [address] [place] [phone] 09/16/2023 14:35:25 09/16/2023 14:46:41 Dyspnea on exertion 09058465 R06.09 Exertional shortness of breath in a patient with multiple risk factors for coronary artery disease and history of coronary stents. Could be angina equivalent . We will proceed with ischemic workup. History of placement of stent for coronary artery disease 849705577 Z95.5 multiple coronary stents when the patient was 39 years old for heart attack as per the patient done at [facility] records not available to us. No chest pain. No ischemic changes on the EKG. Continue medical treatment. Essential hypertension 77293181 I10 controlled continue medication s. Dyslipidemia 580172425 E 78.5 On statin follow up fasting lipid profile. Cigarette smoker 1301822 7 F17.210 Strongly encouraged the patient to quit smoking. I had a lengthy discussion with the patient regarding quitting smoking and available measuremen t to help him quit smoking including support groups nicotine patches or medication like Chantix. Obesity 843099771 E66.9 Recommend sleep apnea evaluation . Type 2 rupali betes mellitus without complication 749448308 E11.9 Follow up hemoglobin A1c. Health Concerns Section Related Observation LastModified by Organization Detai ls LastModified Time None Recorded Concern Status LastModified by Organization Details LastModified Time None Recorded Advance Directives Directive None Recorded Payers Insurance Date Sequence Insurance Name Policy Number Policy Arreola Covered Member ID Arreola Member ID Guarantor Name 12/28/2023 1 [employer] (MEDICAID REPLACEMENT - HMO) Joel Lemons [id number] Joel Lemons Notes Date Note Type Note [...] bpm no ischemic changes. Eugenia Langley MD [address] [place] [address], [phone], [facility] [place] 09/16/2023 14:54:20
--- NOTE | 2025-03-05 07:15 | CT_ITS ---
PROCEDURE INFORMATION: Exam: CTA Chest With Contrast Exam date and time: 03/05/2025 8:24 AM Age: 54 years old Clinical indication: Pain; Chest pressure; Additional info: Dyspnea, chest pain TECHNIQUE: Imaging protocol: Computed tomographic angiography of the chest with contrast. Exam focused on the arteries. 3D rendering (Not supervised by radiologist): MIP and/or 3D reconstructed images were created by the technologist. Radiation optimization: All CT scans at this facility use at least one of these dose optimization techniques: automated exposure control; mA and/or kV adjustment per patient size (includes targeted exams where dose is matched to clinical indication); or iterative reconstruction. Contrast material: ISOVUE 370; Contrast volume: 80 ml; Contrast route: INTRAVENOUS (IV); COMPARISON: CT ANGIO CHEST 09/18/2024 10:05 AM FINDINGS: Pulmonary arteries: No evidence of filling defects to suggest pulmonary emboli. Aorta: Unremarkable. No aortic aneurysm. No aortic dissection. Thyroid: Multinodular goiter. The left thyroid lobe extends into the thoracic inlet. Lungs: No evidence of consolidation or interlobular septal thickening. No evidence of consolidation or interlobular septal thickening. Pleural spaces: Unremarkable. No pneumothorax. No pleural effusion. Heart: There is a curvilinear hypoenhancing region along the left septal and left ventricular endocardium sequela of prior infarct. Heart RV/LV ratio: The RV/LV ratio is less than 1. Lymph nodes: Calcified mediastinal and hilar lymph nodes suggest prior granulomatous exposure. Liver: Cirrhosis. Hepatic granulomas noted. Spleen: Multiple splenic granulomas Bones/joints: Unremarkable. No acute fracture. Soft tissues: Unremarkable. IMPRESSION: 1. Multinodular goiter. The left thyroid lobe extends into the thoracic inlet. 2. There is a curvilinear hypoenhancing region along the left septal and left ventricular endocardium sequela of prior infarct. 3. No evidence of filling defects to suggest pulmonary emboli.
--- NOTE | 2025-03-05 07:16 | HMH.EDGENADL ---
Discharge Plan Disposition Patient Disposition: Admitted Condition: Fair Prescriptions Prescriptions: No Action Eliquis 5 mg tablet 5 mg PO BID Qty: 180 3RF atorvastatin 40 mg tablet 40 mg PO HS Qty: 90 3RF clopidogrel [Plavix] 75 mg tablet 75 mg PO DAILY 90 Days Qty: 90 3RF dapagliflozin propanediol [Farxiga] 10 mg tablet 10 mg PO DAILY Qty: 90 3RF metoprolol succinate [Toprol XL] 50 mg tablet extended release 24 hr 50 mg PO DAILY Qty: 90 3RF Entresto 24-26 mg tablet 1 tab PO BID Qty: 180 3RF ibuprofen 800 mg tablet PO Patient Comments: TAKE ONE TABLET BY MOUTH FOUR TIMES DAILY with food NEEDED lisinopril 10 mg tablet PO Patient Comments: TAKE ONE TABLET BY MOUTH EVERY DAY TO improve blood pressure Ozempic 1 mg/dose (4 mg/3 mL) pen injector SQ Patient Comments: inject 1 mg under the skin once weekly albuterol sulfate [Ventolin HFA] 90 mcg/actuation HFA aerosol inhaler 2 puff inhalation Q4-6H PRN Patient Comments: inhale TWO puffs BY MOUTH EVERY FOUR HOURS NEEDED FOR wheeze Stiolto Respimat 2.5-2.5 mcg/actuation mist 2 puff inhalation ONCE Patient Comments: inhale TWO puffs BY MOUTH DAILY tamsulosin 0.4 mg capsule 0.4 mg PO HS Patient Comments: TAKE 1 CAPSULE BY MOUTH EVERY DAY FOR URINATION trazodone 100 mg tablet 100 mg PO HS Patient Comments: TAKE 1 TABLET BY MOUTH EVERYDAY AT BEDTIME fluoxetine 20 mg capsule 20 mg PO DAILY Patient Comments: TAKE 1 CAPSULE BY MOUTH EVERY DAY FOR MOOD Referrals Follow up/Referrals: Provider,Referral, MD [Referring, Medical] - See instructions Clinical Impressions Clinical Impression: Acute non-ST elevation myocardial infarction (NSTEMI), Atrial flutter with rapid ventricular response Print Language Print Language: Bengali Discharge ED Provider: Benny Starkey Adult [facility] General Chief complaint: Arrhythmia/Palpitations Stated complaint: Chest Pain Time Seen by Provider: 03/05/25 07:00 Mode of Arrival: Ambulatory Source of Information: Patient Description of Symptoms (Recalled from ER Triage Doc. by RN): pt reports chest pain 2 nights ago that was severe and chest pain last night night that has now resolved. pt reports an elevated heart rate and has been feeling dizzy and weak. pt reports a history of afib and stents x8 History of Present Illness HPI narrative: This is a 54-year-old male patient, with past medical history of tobacco abuse, COPD, hypertension, hyperlipidemia, prediabetes, heart failure with reduced ejection fraction, thyroid mass, and coronary artery disease status post multiple stents, who is presenting to the emergency department today for evaluation of palpitations. Patient states that for the last 2 days he has been experiencing chest pain. This initially began 2 days ago when he was resting at home. His pain does not get worse with exertion. It is nonradiating. It is located in the central portion of his chest. He has associated shortness of breath and has had worsening shortness of breath since the onset of symptoms. He has not noticed any worsening lower extremity erythema or edema. Notably, on chart review the patient was seen for a very similar presentation back in September of this year and required diltiazem as well as an esmolol drip with admission to the hospital before spontaneously converting to normal sinus rhythm. Related Data Home Medications ?Medication ?Instructions ?Recorded ?Confirmed fluoxetine 20 mg capsule 20 mg PO DAILY 09/18/24 11/19/24 tamsulosin 0.4 mg capsule 0.4 mg PO HS 09/18/24 11/19/24 trazodone 100 mg tablet 100 mg PO HS 09/18/24 11/19/24 albuterol sulfate 90 mcg/actuation 2 puff inhalation Q4-6H PRN 09/28/24 11/19/24 aerosol inhaler (Ventolin HFA) tiotropium 2.5 mcg-olodaterol 2.5 2 puff inhalation ONCE 09/28/24 11/19/24 mcg/actuation mist for inhalation (Stiolto Respimat) ibuprofen 800 mg tablet mg PO 11/25/24 11/25/24 lisinopril 10 mg tablet mg PO 11/25/24 11/25/24 semaglutide 1 mg/dose (4 mg/3 mL) mg SQ 11/25/24 11/25/24 subcutaneous pen injector (Ozempic) Previous Rx's ?Medication ?Instructions ?Recorded apixaban 5 mg tablet (Eliquis) 5 mg PO BID #180 tabs 10/19/24 atorvastatin 40 mg tablet 40 mg PO HS #90 tabs 10/19/24 clopidogrel 75 mg tablet (Plavix) 75 mg PO DAILY 90 days #90 tabs 10/19/24 dapagliflozin propanediol 10 mg 10 mg PO DAILY #90 tabs 10/19/24 tablet (Farxiga) metoprolol succinate 50 mg 50 mg PO DAILY #90 tabs 10/19/24 tablet,extended release 24 hr (Toprol XL) sacubitril 24 mg-valsartan 26 mg 1 tab PO BID #180 tabs 10/19/24 tablet (Entresto) Allergies Allergy/AdvReac Type Severity Reaction Status Date / Time No Known Allergies Allergy Verified 11/25/24 11:41 [facility] Disclaimer: The information contained in this section may have been updated after the patient was seen, as this information can be updated by other users. Medical History Thyroid mass Tobacco dependence syndrome Prediabetes Anxiety Depression BPH (benign prostatic hyperplasia) HLD (hyperlipidemia) HTN (hypertension) Heart attack COPD (chronic obstructive pulmonary disease) Surgical History Stented coronary artery History of incision and drainage Hx of heart artery stent S/P cardiac catheterization Family History Family/Other Thyroid disorder Mother No problems noted. Grandmother Thyroid disorder Grandfather Thyroid disorder Other No significant family history Social History Smoking Status: Current every day smoker alcohol intake: current current occupational status: other Travel in the last 8 weeks?: None Have you lived/traveled outside [place] in past 30 days?: No Contact w/someone who lives/traveled outside US past 30 days?: No Exposure to someone with infectious disease in past 14 days?: No Do you have a fever (greater than 100.4 F or 38 C)?: No Have you tested positive for COVID-19?: No Exposed to someone with COVID-19 in past 14 days?: No Do you have a sore throat?: No Do you have a cough?: No Do you have any weakness?: No Do you have any diarrhea?: No Are you experiencing any unusual bleeding?: No Do you have any muscle aches/pain?: No Do you have any abdominal pain?: No Are you experiencing loss of taste or smell?: No Other Medical History Have you received the Flu Vaccine for this season: No Have you received the Pneumonia Vaccine: No ROS Obtained: Yes Systems reviewed as appropriate & no additional complaints except as documented Physical Exam General General appearance: other (See MDM) Respiratory Respiratory exam: Present other (See MDM) Cardiovascular Cardiovascular exam: Present other (See MDM) Neurological Exam Neurological exam: Present other (See MDM) Medical Decision Making Medical Records Medical records reviewed: Yes I reviewed the patient's medical records. Screening: Per USPSTF and CDC recommendations, given the prevalence of disease in our region, it is our hospital?s policy to screen for HIV and viral Hepatitis for all patients aged 18 and over and those with ongoing risk factors. Edmundo Inquiry Pt receiving controlled substance: No Edmundo was queried for this patient: No Vital Signs: 03/05/25 07:02 03/05/25 07:02 03/05/25 07:25 Temperature 98.1 F Temperature Source Oral Pulse Rate 136 H 141 H Pulse Rate [Right] 136 H Respiratory Rate 22 22 Blood Pressure 120/98 H Blood Pressure [Right Arm] 141/102 H Blood Pressure Mean [Right Arm] 115 02 Sat by Pulse Oximetry 95 97 Oxygen Delivery Method Room Air 03/05/25 07:30 03/05/25 08:00 03/05/25 08:52 Temperature Temperature Source Pulse Rate 95 H 137 H 138 H Pulse Rate [Right] Respiratory Rate 18 22 28 H Blood Pressure 128/82 128/84 137/106 H Blood Pressure [Right Arm] Blood Pressure Mean [Right Arm] 02 Sat by Pulse Oximetry 95 96 97 Oxygen Delivery Method 03/05/25 08:56 03/05/25 09:01 03/05/25 09:05 Temperature Temperature Source Pulse Rate 137 H 119 H 133 H Pulse Rate [Right] Respiratory Rate 21 22 23 Blood Pressure 140/94 H 117/75 127/84 Blood Pressure [Right Arm] Blood Pressure Mean [Right Arm] 02 Sat by Pulse Oximetry 98 97 97 Oxygen Delivery Method 03/05/25 09:10 03/05/25 09:16 03/05/25 09:21 Temperature Temperature Source Pulse Rate 133 H 135 H Pulse Rate [Right] Respiratory Rate 27 H 30 H 23 Blood Pressure 114/92 H 82/55 L 115/89 Blood Pressure [Right Arm] Blood Pressure Mean [Right Arm] 02 Sat by Pulse Oximetry 97 84 L 97 Oxygen Delivery Method 03/05/25 09:25 03/05/25 09:30 Temperature Temperature Source Pulse Rate 134 H 134 H Pulse Rate [Right] Respiratory Rate 20 16 Blood Pressure 126/99 H 105/86 L Blood Pressure [Right Arm] Blood Pressure Mean [Right Arm] 02 Sat by Pulse Oximetry 97 96 Oxygen Delivery Method Lab Data Lab Results 03/05/25 07:20: WBC 12.2 H, RBC 6.30 H, Hgb 19.9 H, Hct 58.4 H, MCV 92.7, MCH 31.4 H, MCHC 33.9, RDW 15.3, Plt Count 182, MPV 10.5 H, Neut % (Auto) 70.8, Lymph % (Auto) 21.3, [place] % (Auto) 6.6, Eos % (Auto) 0.5, Baso % (Auto) 0.6, Neut # (Auto) 8.7 H, Lymph # (Auto) 2.6, [place] # (Auto) 0.8, Eos # (Auto) 0.1, Baso # (Auto) 0.1, Sodium 136, Potassium 4.6, Chloride 103, Carbon Dioxide 28, Anion Gap 9.6, BUN 21 H, Creatinine 1.20, Estimated Creat Clear 112, Estimated GFR 63, Est GFR ( Amer) 77, Glucose 151 H, Calcium 9.3, Total Bilirubin 0.9, AST 64 H, ALT 48, Alkaline Phosphatase 70, Troponin I 5.50 H, NT-Pro-B Natriuret Pep 3860 H, Total Protein 7.8, Albumin 4.1, Globulin 3.7 H, Albumin/Globulin Ratio 1.1, Lipase 155, TSH 1.18, Free T4 1.10 03/05/25 07:36: VBG pH 7.33, VBG pCO2 50.8, VBG pO2 40.8 H, VBG HCO3 26.4, VBG Total CO2 27.9 H, VBG O2 Saturation 72.0 H, VBG Base Excess 0.5, VBG Lactic Acid 1.8 03/05/25 07:20 03/05/25 07:20 Orders (Tests/Meds): ED MEDICATIONS Generic Name Dose Route Start Last Admin Trade Name Freq PRN Reason Stop Dose Admin Esmolol HCl 2,500 mg in 250 mls @ 33.339 mls/hr 03/05/25 09:00 03/05/25 09:41 Esmolol In Water 2,500mg/250ml Premix IV 04/04/25 08:59 200 mcg/kg/min .Q7H30M PATTI 133.36 mls/hr Protocol Titration 50 MCG/KG/MIN Discontinued Medications Generic Name Dose Route Start Last Admin Trade Name Freq PRN Reason Stop Dose Admin Lactated Ringer's 500 mls @ 250 mls/hr 03/05/25 07:35 03/05/25 07:48 Lactated Ringer's 500ml IV 03/05/25 09:34 250 mls/hr .Q2H ONE Administration Iopamidol 70 ml 03/05/25 08:21 03/05/25 08:22 Iopamidol-370 (76%);100ml Bottle IV 03/05/25 08:22 70 ml ONCE ONE Administration Metoprolol Tartrate 5 mg 03/05/25 08:43 03/05/25 08:51 Metoprolol Tartrate 5mg/5ml Vial IV 03/05/25 08:44 5 mg ONCE ONE Administration Perflutren Lipid Microsphere 2 mg 03/05/25 09:01 03/05/25 09:06 Definity Us Echo Contrast 2ml Inj IV 03/05/25 09:02 2 mg ONCE ONE Administration Sodium Chloride 10 ml 03/05/25 08:21 03/05/25 08:22 Sodium Chloride 0.9% 10ml Syr (Rad Only) IV 03/05/25 08:22 10 ml ONCE ONE Administration Sodium Chloride 50 ml 03/05/25 08:21 03/05/25 08:22 0.9 % Sodium Chloride 50 Ml Vial IV 03/05/25 08:22 50 ml ONCE ONE Administration ORDERS Category Date Time Status CT angio chest PE protocol Stat Cat Scan 03/05/25 07:15 Taken Cardiology Consult [Consult to Cardiology] [CONS] Cons 03/05/25 09:22 Active Routine CA echo limited w/ definity Routine Exams 03/05/25 08:43 Completed CXR --portable [XR chest portable] Stat Exams 03/05/25 07:09 Completed POCUS Point of Care (ER Only) Stat Exams 03/05/25 07:12 Completed BNP [NT Pro Brain Natriuretic Pep.] Stat Lab 03/05/25 07:20 Completed CBC w/Auto Diff [Complete Blood Count Auto Diff] Stat Lab 03/05/25 07:20 Completed CMP [Comprehensive Metabolic Panel] Stat Lab 03/05/25 07:20 Completed Complete Blood Count Auto Diff AMLAB Lab 03/06/25 06:00 Ordered Comprehensive Metabolic Panel AMLAB Lab 03/06/25 06:00 Ordered Free T4 (Free Thyroxine) Stat Lab 03/05/25 07:20 Completed Lipase Stat Lab 03/05/25 07:20 Completed Magnesium AMLAB Lab 03/06/25 06:00 Ordered Mini Respiratory Panel Stat Lab 03/05/25 07:09 Ordered TSH [Thyroid Stimulating Hormone] Stat Lab 03/05/25 07:20 Completed Troponin I Q3H Lab 03/05/25 10:15 Ordered Troponin I Q3H Lab 03/05/25 13:15 Ordered Troponin I Stat Lab 03/05/25 07:20 Completed VBG [Venous Blood Gas] Stat RT 03/05/25 07:36 Completed 12-lead EKG Request [ECG Request] Stat Y 03/05/25 07:01 Ordered ECG Data Tracing #1: I reviewed this ECG and interpreted as documented below: EKG personally interpreted by me demonstrates a wide-complex tachycardia consistent with 2-1 A-flutter with aberrnacy at a rate of 136 bpm, left axis, wide QRS of 124 ms, no QTc prolongation. No Sgarbossa criteria. No STEMI. Patient has baseline left anterior fascicular block, retains rS complexes in inferior leads with left axis. Medical Decision Narrative: In summary, this is a 54-year-old male patient who is presenting to the emergency department today for evaluation of palpitations, chest pain, shortness of breath over the last 2 days. Patient does have a history of coronary artery disease, COPD, tobacco abuse, hypertension, hyperlipidemia, prediabetes, and a thyroid mass. In the past he was also admitted to the hospital on a diltiazem and esmolol drip for refractory atrial flutter. On initial evaluation of the patient he was sitting upright in no acute distress and was nontoxic appearance. He is hemodynamically stable, saturating well on room air, and is neurologically intact. Lungs are clear to auscultation bilaterally. Heart sounds are tachycardic and regular. Abdomen is distended but soft and nontender to palpation. He has no lower extremity erythema or edema. Differential diagnosis includes atrial flutter, atrial fibrillation, ACS/HI, pulmonary embolism, thyroid storm, electrolyte derangement, acute kidney injury, sepsis, acute decompensated heart failure, among others EKG as interpreted by me above does demonstrate a wide-complex tachycardia consistent with atrial flutter with a left anterior fascicular block at a rate of 136 bpm. Labs personally turbid by me demonstrate a nonspecific leukocytosis of 12.2. The patient does have an elevated hemoglobin hematocrit which could be seen in the setting of chronic tobacco abuse or in hemoconcentration. VBG demonstrates no evidence of acidosis or profound hypercapnia. CMP shows no significant electrolyte derangements or acute kidney injury. Patient's troponin is elevated at 5.5 and his proBNP is 3860. Otherwise labs show no abnormality. No concern for thyroid storm. CT PE study was personally interpreted by me and demonstrates no large saddle pulmonary embolus. I did have an interactive discussion with the cardiology service. We elected to treat the patient with 5 mg of metoprolol tartrate as an IV push. We then elected to start the patient on an esmolol drip for further rate control. We did not start the patient on diltiazem as he has heart failure with reduced ejection fraction. Given this patient's NSTEMI and atrial fibrillation with rapid ventricular response I do feel that he necessitates admission to the hospital. I have had an interactive discussion with the internal medicine service was agreed to evaluate the patient the emergency department. After our discussion and their evaluation have agreed to admit the patient to their service and accept primary possibility patient moving forward. Procedures Miscellaneous Procedure Procedure Performed: Limited lung ultrasound A focused ultrasound exam of the pleural spaces was performed to evaluate for pneumothorax, pulmonary edema, pleural effusion, and/or consolidation. The ultrasound was performed with the following indications as noted in the H&P: Dyspnea Identified structures: Right and left thoracic cavities were examined. Findings Lung sliding: Right and left present B-lines: Absent left anterior and left lateral Absent right anterior and right lateral Pleural effusion: Absent right and left Consolidation: Absent right and left Absent right and left Impression: Pneumothorax right and left absent Pleural effusion right and left absent B-lines right and left absent Consolidation right and left absent Images were saved to permanent archive This study was technically adequate CPT: 11053-34 This study was performed by me and I personally interpreted all images/videos. Based on my clinical judgment these images were adequate and did not necessitate further imaging. Critical Care Critical Care Time Critical Care Time: Yes Attestation: On 03/05/25, the high probability of a clinically significant, sudden or life threatening deterioration of the following system(s) required my full and direct attention, intervention and personal management. The time I documented below is in addition to time spent performing reported procedures but includes the following listed in this critical care notation. Total Time Total Critical Care Time: 35
--- NOTE | 2025-03-05 07:31 | PC.NURSE ---
Patients FSBS is 160.
--- NOTE | 2025-03-05 07:36 | PC.NURSE ---
spoke with respiratory regarding vbg
[2025-03-05 07:39] LABS: Lactate Venous 1.8 mmol/L (0.4-2.0); VBG HCO3 26.4 mmol/L (23-30); VBG PCO2 50.8 mmol/L (35-51); VBG PH 7.33 mmol/L (7.31-7.41); VBG PO2 40.8 mmol/L (28-40)
[2025-03-05 07:45] LABS: Hematocrit 58.4 % (42.0-52.0); Immature Granulocytes % 0.2 %; Mean Corpuscular HGB Conc 33.9 g/dL (31.8-35.4); Mean Corpuscular Hemoglobin 31.4 pg (27.0-31.2); Mean Corpuscular Volume 92.7 fl (80-94); Nucleated Red Blood Cells % 0 %; Platelet Count 182 K/mm3 (142-424); Red Blood Count 6.30 M/mm3 (4.60-6.20); Red Cell Distribution Width-SD 49.7 fL; White Blood Count 12.2 K/mm3 (4.8-10.8)
[2025-03-05] MEDS: RINGERS SOLUTION,LACTATED 500 ML 250 ML IV (07:48)
[2025-03-05 08:08] LABS: Alanine Aminotransferase 48 U/L (12-78); Albumin Level 4.1 g/dl (3.5-5.0); Albumin/Globulin Ratio 1.1 (1.1-1.8); Alkaline Phosphatase 70 U/L (38-126); Anion Gap 9.6 mEq/L (5-15); Aspartate Amino Transferase 64 U/L (17-59); Bilirubin,Total 0.9 mg/dl (0.2-1.3); Blood Urea Nitrogen 21 mg/dl (9-20); Calcium 9.3 mg/dl (8.4-10.2); Carbon Dioxide 28 mmol/L (22.0-30.0); Chloride 103 mmol/L (98-107); Creatinine Clearance Estimated 112 mL/min (50-200); Creatinine,Serum 1.20 mg/dl (0.66-1.25); Estimated Glomerular Filt Rate 63 ml/min (>60); GFR (African American) 77 ML/MIN (>60); Globulin 3.7 g/dL (1.3-3.2); Glucose 151 mg/dl (74-100); Potassium 4.6 mmoL/L (3.5-5.1); Sodium 136 mmol/L (136-145); Total Protein,Serum 7.8 g/dl (6.3-8.2)
[2025-03-05 08:17] LABS: NT Pro Brain Natriuretic Pep. 3860 pg/mL (0-125)
[2025-03-05] MEDS: 0.9 % SODIUM CHLORIDE 50 ML VIAL IV (08:22)
[2025-03-05] MEDS: IOPAMIDOL-370 (76%);100ML BOTTLE 70 ML IV (08:22)
[2025-03-05] MEDS: SODIUM CHLORIDE 0.9% 10ML SYR (RAD ONLY) 10 ML IV (08:22)
[2025-03-05 08:27] LABS: Troponin I 5.50 ng/ml (0.00-0.034)
[2025-03-05 08:28] LABS: Hemoglobin 19.9 g/dL (14.1-18.0)
[2025-03-05 08:40] LABS: Thyroid Stimulating Hormone 1.18 uIU/mL (0.465-4.68)
--- NOTE | 2025-03-05 08:43 | CA_ITS ---
APPROVED REPORT EXAM: Limited 2D Echocardiogram with contrast Microbiology Quality Control Technician: Marlene May RT(R) Ht: 5 ft 9 in Wt: 245lbs BSA: 2.25 BP: 120/98 mmHg Indications: CP, HFpEF, Reoccluded stents s/p CATH with EF 60% Echo Enhancing Agent Indication: Endocardial border delineation Agent(s) / Amount(s) Used: Definity 2 cc Comments: SUPINE 2D Dimensions EF AP4 45.00 % GL Strain 20.0 % Other Information Study Quality: Technically Difficult Conclusion This is a limited TTE to evaluate for LV systolic function. Limited windows were obtained. Ultrasound enhancing agent is administered. Technically very difficult study. The left ventricle grossly appears normal in size. There is increased LV wall thickness. There is normal global LV systolic function. No regional wall motion abnormalities are noted in the available views. LVEF is 60%. No obvious evidence of LV thrombus after administration of ultrasound enhancing agent. Electronically signed by : Christy Augustin MD 03/08/2025 11:32:27
[2025-03-05 08:48] LABS: Lipase 155 U/L (23-300)
[2025-03-05] MEDS: METOPROLOL TARTRATE 5MG/5ML VIAL 5 MG IV (08:51)
[2025-03-05] MEDS: DEFINITY US ECHO CONTRAST 2ML INJ 2 MG IV (09:06)
[2025-03-05] MEDS: ESMOLOL HCL IN STERILE WATER 2,500 MG/250 ML PIGGYBACK 33.34 MG IV (09:12)
--- NOTE | 2025-03-05 09:24 | EXP.HP ---
History of Present Illness *Admission Date: 03/05/25 *Reason for visit:: dyspnea, chest pressure *History of present illness: Mr. Lemons is a 54-year-old male with history of COPD, tobacco dependence, hypertension, hyperlipidemia, prediabetes, HFrEF, CAD. Has paroxysmal A-fib. Presented to the ER with complaint of 2 days of dyspnea, chest pressure, feeling quite weak and fatigued. Does not recall pressure or pain getting worse with exertion or improving at rest. No referred symptoms to his arms or neck. Stable on room air. Taking his medications as prescribed. On metoprolol for paroxysmal A-fib along with Eliquis for anticoagulation. On arrival to the ER, heart rate noted to be greater than 140s. EKG showed a flutter with RVR and a 2:1 pattern. Cardiology was consulted and patient was initiated on esmolol drip. Labs concerning for elevated BNP of 3800, troponin 5.5. Medicine consulted for admission and further care. On arrival to the stepdown unit, patient appears in mild distress. On esmolol drip. Heart rate 120s to 130s. Stable on room air. Denies nausea or vomiting. No confusion. Alert and oriented x 4. Family at bedside Cardiac history significant for previous stent placement x 8, Echo from 09/18/2024 with EF 35 to 40%. Mild dilation of right ventricle. Cath 09/21/2024 where he received 3 contiguous stents to the RCA, 1 stent to the ostial proximal posterior descending artery, persistent disease in the LAD that was medically managed. [facility] Disclaimer: The information contained in this section may have been updated after the patient was seen, as this information can be updated by other users. Medical History (Updated 03/05/25 @ 12:22 by Joel Foote MD) Thyroid mass Tobacco dependence syndrome Prediabetes Anxiety Depression BPH (benign prostatic hyperplasia) HLD (hyperlipidemia) HTN (hypertension) Heart attack COPD (chronic obstructive pulmonary disease) Surgical History Stented coronary artery History of incision and drainage Hx of heart artery stent S/P cardiac catheterization Family History Family/Other Thyroid disorder Mother No problems noted. Grandmother Thyroid disorder Grandfather Thyroid disorder Other No significant family history Social History Smoking Status: Current every day smoker alcohol intake: current current occupational status: other Travel in the last 8 weeks?: None Have you lived/traveled outside US in past 30 days?: No Contact w/someone who lives/traveled outside US past 30 days?: No Exposure to someone with infectious disease in past 14 days?: No Do you have a fever (greater than 100.4 F or 38 C)?: No Have you tested positive for COVID-19?: No Exposed to someone with COVID-19 in past 14 days?: No Do you have a sore throat?: No Do you have a cough?: No Do you have any weakness?: No Do you have any diarrhea?: No Are you experiencing any unusual bleeding?: No Do you have any muscle aches/pain?: No Do you have any abdominal pain?: No Are you experiencing loss of taste or smell?: No Other Medical History Have you received the Flu Vaccine for this season: No Have you received the Pneumonia Vaccine: No Review of Systems Review of Systems Review of systems (narrative): 14 point review of systems performed, pertinent positives and negatives as per HPI Meds Home Medications and Allergies Home Medications ?Medication ?Instructions ?Recorded ?Confirmed ?Type fluoxetine 20 mg capsule 20 mg PO DAILY 09/18/24 03/05/25 History tamsulosin 0.4 mg capsule 0.4 mg PO HS 09/18/24 03/05/25 History trazodone 100 mg tablet 100 mg PO HS 09/18/24 03/05/25 History albuterol sulfate 90 mcg/actuation 2 puff inhalation Q4HP PRN 09/28/24 03/05/25 History aerosol inhaler (Ventolin HFA) Shortness Of Breath apixaban 5 mg tablet (Eliquis) 5 mg PO BID #180 tabs 10/19/24 03/05/25 Rx atorvastatin 40 mg tablet 40 mg PO HS #90 tabs 10/19/24 03/05/25 Rx clopidogrel 75 mg tablet (Plavix) 75 mg PO DAILY 90 days #90 tabs 10/19/24 03/05/25 Rx dapagliflozin propanediol 10 mg 10 mg PO DAILY #90 tabs 10/19/24 03/05/25 Rx tablet (Farxiga) metoprolol succinate 50 mg 50 mg PO DAILY #90 tabs 10/19/24 03/05/25 Rx tablet,extended release 24 hr (Toprol XL) sacubitril 24 mg-valsartan 26 mg 1 tab PO BID #180 tabs 10/19/24 03/05/25 Rx tablet (Entresto) ibuprofen 800 mg tablet 800 mg PO QIDP PRN Mild Pain 11/25/24 03/05/25 History (Scale Score 1-4) lisinopril 10 mg tablet 10 mg PO DAILY 11/25/24 03/05/25 History dulaglutide 0.75 mg/0.5 mL 0.75 mg SQ WEEKLY 03/05/25 03/05/25 History subcutaneous pen injector (Trulicity) New Prescriptions to Start Prescriptions: Allergies Allergy/AdvReac Type Severity Reaction Status Date / Time No Known Allergies Allergy Verified 03/05/25 11:04 Exam Data for Last 24 hours Vital signs and Labs for Last 24 Hours: Temp Pulse Resp BP Pulse Ox O2 Del Method 98.1 F 133 H 23 127/84 97 Room Air 03/05/25 07:02 03/05/25 09:05 03/05/25 09:05 03/05/25 09:05 03/05/25 09:05 03/05/25 07:02 Laboratory Results - last 24 hr 03/05/25 07:20: WBC 12.2 H, RBC 6.30 H, Hgb 19.9 H, Hct 58.4 H, MCV 92.7, MCH 31.4 H, MCHC 33.9, RDW 15.3, Plt Count 182, MPV 10.5 H, Neut % (Auto) 70.8, Lymph % (Auto) 21.3, Arthur % (Auto) 6.6, Eos % (Auto) 0.5, Baso % (Auto) 0.6, Neut # (Auto) 8.7 H, Lymph # (Auto) 2.6, Arthur # (Auto) 0.8, Eos # (Auto) 0.1, Baso # (Auto) 0.1, Sodium 136, Potassium 4.6, Chloride 103, Carbon Dioxide 28, Anion Gap 9.6, BUN 21 H, Creatinine 1.20, Estimated Creat Clear 112, Estimated GFR 63, Est GFR ( Amer) 77, Glucose 151 H, Calcium 9.3, Total Bilirubin 0.9, AST 64 H, ALT 48, Alkaline Phosphatase 70, Troponin I 5.50 H, NT-Pro-B Natriuret Pep 3860 H, Total Protein 7.8, Albumin 4.1, Globulin 3.7 H, Albumin/Globulin Ratio 1.1, Lipase 155, TSH 1.18 03/05/25 07:36: VBG pH 7.33, VBG pCO2 50.8, VBG pO2 40.8 H, VBG HCO3 26.4, VBG Total CO2 27.9 H, VBG O2 Saturation 72.0 H, VBG Base Excess 0.5, VBG Lactic Acid 1.8 I & O for Last 24 hours: Intake & Output 03/02/25 03/03/25 03/04/25 03/05/25 23:59 23:59 23:59 23:59 Weight 111.13 kg Constitutional Constitutional: mild distress, obese and cooperative *Routine HEENT Exam Head: Present normocephalic Eye: Present EOMI and PERRL ENT: Present mucous membranes moist *Routine Neck Exam Neck: Present supple; Absent lymphadenopathy *Routine Respiratory Exam Respiratory: Present CTA bilaterally; Absent rhonchi, wheezes or crackles *Routine Cardiovascular Exam Cardiovascular: Present tachycardia *Routine Abdominal Exam Abdominal: Present soft, normoactive bowel sounds, distended and obese; Absent tenderness *Routine Rectal Exam Rectal:: deferred *Routine Genitalia Exam Genitalia:: deferred *Routine Extremities Exam Extremities: Absent cyanosis, clubbing or edema *Routine Skin Exam Skin: Present intact and warm; Absent rash *Routine Neurological Exam Neurological: Present alert, oriented X3 and moving all extremities; Absent altered mental status Assessment and Plan *Assessment and plan (1) Atrial flutter with rapid ventricular response: Status: Acute Category: Medical Code(s): I48.92 - Unspecified atrial flutter (2) Acute non-ST elevation myocardial infarction (NSTEMI): Status: Acute Category: Medical Code(s): I21.4 - Non-ST elevation (NSTEMI) myocardial infarction (3) HTN (hypertension): Status: Acute Qualifiers: Hypertension type: unspecified Qualified Code(s): I10 - Essential (primary) hypertension Category: Medical Code(s): I10 - Essential (primary) hypertension (4) HLD (hyperlipidemia): Status: Acute Qualifiers: Hyperlipidemia type: other hyperlipidemia Qualified Code(s): E78.49 - Other hyperlipidemia Category: Medical Code(s): E78.5 - Hyperlipidemia, unspecified (5) Prediabetes: Status: Acute Category: Medical Code(s): R73.03 - Prediabetes (6) HFrEF (heart failure with reduced ejection fraction): Status: Acute Category: Medical Code(s): I50.20 - Unspecified systolic (congestive) heart failure (7) Coronary artery disease: Status: Acute Qualifiers: Associated angina: without angina Coronary Disease-Associated Artery/Lesion type: [place] artery [place] vs. transplanted heart: [place] heart Qualified Code(s): I25.10 - Atherosclerotic heart disease of [place] coronary artery without angina pectoris Category: Medical Code(s): I25.10 - Atherosclerotic heart disease of [place] coronary artery without angina pectoris (8) Obesity (BMI 30.0-34.9): Status: Chronic Category: Medical Code(s): E66.811 - Obesity, class 1 (9) Depression: Status: Chronic Category: Medical Code(s): F32.A - Depression, unspecified Plan Mr. Lemons is a 54-year-old male with history of obesity and A-fib. Presents with shortness of breath and chest pressure. Found to have NSTEMI and be in a flutter with RVR. Discussed case with ER physician, request admission for further management and initiation of rate controlling drips. Cardiology consulted to assist with care. I decided to admit for further management to the ICU/stepdown due to necessitating esmolol drip. Patient in mild distress. Necessitating inpatient care. Problems addressed as follows: NSTEMI A flutter with RVR History of paroxysmal A-fib HFrEF - Patient troponin elevated at 5.5 repeat pending; BNP elevated at 3800. Heart rate in the 140s on presentation. - Initiate esmolol drip. Discussed case with cardiology, will add digoxin and Amiodarone -Plan for left heart cath this afternoon due to NSTEMI. - Will consider diuresis pending response to rate control given elevated BNP. Currently stable on room air. Goal sats greater 90%. -EKG per my review showing wide-complex tachycardia consistent with a flutter. - Reviewed history from EMR, had cath and echo in September. Received 4 stents in September. Heart cath showed EF 35 to 40% at that time. Repeat echo pending - Continue Eliquis 5 mg twice daily. - Continue Plavix 75 mg daily, Lipitor 40 mg nightly - Will consider resuming Entresto pending response to drips for rate control and blood pressure over the next 24 hours. - Hemoglobin 19, erythrocytosis likely secondary to his tobacco use. Monitor for improvement during admission. May necessitate therapeutic phlebotomy - white count 12, platelets 182. Kidney function at baseline with BUN 21, creatinine 1.2. Potassium 4.6. Repeat CBC, CMP, magnesium ordered for the morning. Prediabetes: Initiate sliding scale insulin with fingersticks ACHS. Continue dapagliflozin 10 mg daily. Holding Trulicity while inpatient Obesity complicates all aspects of his care BPH: Continue tamsulosin 0.4 mg nightly Sleep disorder: Continue trazodone 100 mg nightly Depression: Continue Prozac 20 mg daily Full code eliquis bid diabetic diet
[2025-03-05 09:27] LABS: Free T4 (Free Thyroxine) 1.10 ng/dl (0.78-2.19)
--- NOTE | 2025-03-05 09:51 | EXP.CARD.CON ---
History of Present Illness History of Present Illness Consult date: 03/05/25 Requesting physician: Joel Foote Chief complaint: palpitations and soa History of present illness: Joel Lemons is a 54-year-old white male with a past medical history of A-fib on Eliquis, coronary artery disease with last stenting in October of this year, hypertension, prediabetes and HFrEF with a known ejection fraction of 35 to 40% who presented to emergency department with complaints of chest pain, shortness of breath and palpitations. Patient reports he had an episode of chest pressure 2 days ago. He has had intermittent episodes since then along with shortness of breath and palpitations this morning. Upon presentation to ER EKG showed a wide-complex tachycardia consistent/A-fib at a rate of 136. Labs as follow: WBC 12.2, hemoglobin 19.9, sodium 136, potassium 4.6, BUN 21, creatinine 1.2, AST slightly elevated at 64, troponin 5.5, proBNP 3860. Chest x-ray is negative for acute cardiopulmonary process. CTA chest is pending. Patient does note that he might have missed a dose of his medications this week to include beta-blockers and blood thinners. Patient was evaluated while in the emergency department. During evaluation he denies any chest pain he reports he only has some shortness of breath. He is hemodynamically stable at this time. IV dose of metoprolol was given without rate improvement. Patient will be started on esmolol drip. Will obtain a repeat limited echo to evaluate EF once heart rate has improved. Plan to proceed with left heart catheterization today for NSTEMI. [facility] Disclaimer: The information contained in this section may have been updated after the patient was seen, as this information can be updated by other users. Medical History Thyroid mass Tobacco dependence syndrome Prediabetes Anxiety Depression BPH (benign prostatic hyperplasia) HLD (hyperlipidemia) HTN (hypertension) Heart attack COPD (chronic obstructive pulmonary disease) Surgical History Stented coronary artery History of incision and drainage Hx of heart artery stent S/P cardiac catheterization Family History Family/Other Thyroid disorder Mother No problems noted. Grandmother Thyroid disorder Grandfather Thyroid disorder Other No significant family history Social History (Updated 03/05/25 @ 11:17 by Betty Ivy RN) Smoking Status: Current every day smoker alcohol intake: current current occupational status: other Travel in the last 8 weeks?: None Have you lived/traveled outside US in past 30 days?: No Contact w/someone who lives/traveled outside US past 30 days?: No Exposure to someone with infectious disease in past 14 days?: No Do you have a fever (greater than 100.4 F or 38 C)?: No Have you tested positive for COVID-19?: No Exposed to someone with COVID-19 in past 14 days?: No Do you have a sore throat?: No Do you have a cough?: No Do you have any weakness?: No Do you have any diarrhea?: No Are you experiencing any unusual bleeding?: No Do you have any muscle aches/pain?: No Do you have any abdominal pain?: No Are you experiencing loss of taste or smell?: No Review of Systems Review of Systems Review of systems:: pertinent systems reviewed and negative unless documented below *Cardiovascular Cardiovascular: Reports chest pain and Reports dyspnea Comments: Palpitations *Respiratory Respiratory: Reports dyspnea Exam Data for Last 24 hours Vital signs and Labs for Last 24 Hours: Temp Pulse Resp BP Pulse Ox O2 Del Method 98.1 F 134 H 16 105/86 L 96 Room Air 03/05/25 07:02 03/05/25 09:30 03/05/25 09:30 03/05/25 09:30 03/05/25 09:30 03/05/25 07:02 Laboratory Results - last 24 hr 03/05/25 07:20: WBC 12.2 H, RBC 6.30 H, Hgb 19.9 H, Hct 58.4 H, MCV 92.7, MCH 31.4 H, MCHC 33.9, RDW 15.3, Plt Count 182, MPV 10.5 H, Neut % (Auto) 70.8, Lymph % (Auto) 21.3, Cloud % (Auto) 6.6, Eos % (Auto) 0.5, Baso % (Auto) 0.6, Neut # (Auto) 8.7 H, Lymph # (Auto) 2.6, Cloud # (Auto) 0.8, Eos # (Auto) 0.1, Baso # (Auto) 0.1, Sodium 136, Potassium 4.6, Chloride 103, Carbon Dioxide 28, Anion Gap 9.6, BUN 21 H, Creatinine 1.20, Estimated Creat Clear 112, Estimated GFR 63, Est GFR ( Amer) 77, Glucose 151 H, Calcium 9.3, Total Bilirubin 0.9, AST 64 H, ALT 48, Alkaline Phosphatase 70, Troponin I 5.50 H, NT-Pro-B Natriuret Pep 3860 H, Total Protein 7.8, Albumin 4.1, Globulin 3.7 H, Albumin/Globulin Ratio 1.1, Lipase 155, TSH 1.18, Free T4 1.10 03/05/25 07:36: VBG pH 7.33, VBG pCO2 50.8, VBG pO2 40.8 H, VBG HCO3 26.4, VBG Total CO2 27.9 H, VBG O2 Saturation 72.0 H, VBG Base Excess 0.5, VBG Lactic Acid 1.8 I & O for Last 24 hours: Intake & Output 03/02/25 03/03/25 03/04/25 03/05/25 23:59 23:59 23:59 23:59 Intake Total 28.339 / 28.339 Balance 28.339 / 28.339 Weight 245 lb Constitutional Constitutional: no acute distress *Routine Respiratory Exam Respiratory: Present CTA bilaterally and symmetric chest movement *Routine Cardiovascular Exam Cardiovascular: Present Normal S1, Normal S2, tachycardia and irregular rhythm *Routine Abdominal Exam Abdominal: Present soft and normoactive bowel sounds; Absent tenderness *Routine Extremities Exam Extremities: Present full ROM and normal capillary refill; Absent edema *Routine Skin Exam Skin: Present intact, dry and warm Detailed Neck Exam: Thyroids Thyroid: Absent bruit Meds Home Medications and Allergies Home Medications ?Medication ?Instructions ?Recorded ?Confirmed ?Type fluoxetine 20 mg capsule 20 mg PO DAILY 09/18/24 03/05/25 History tamsulosin 0.4 mg capsule 0.4 mg PO HS 09/18/24 03/05/25 History trazodone 100 mg tablet 100 mg PO HS 09/18/24 03/05/25 History albuterol sulfate 90 mcg/actuation 2 puff inhalation Q4HP PRN 09/28/24 03/05/25 History aerosol inhaler (Ventolin HFA) Shortness Of Breath tiotropium 2.5 mcg-olodaterol 2.5 2 puff inhalation DAILY 09/28/24 03/05/25 History mcg/actuation mist for inhalation (Stiolto Respimat) apixaban 5 mg tablet (Eliquis) 5 mg PO BID #180 tabs 10/19/24 03/05/25 Rx atorvastatin 40 mg tablet 40 mg PO HS #90 tabs 10/19/24 03/05/25 Rx clopidogrel 75 mg tablet (Plavix) 75 mg PO DAILY 90 days #90 tabs 10/19/24 03/05/25 Rx dapagliflozin propanediol 10 mg 10 mg PO DAILY #90 tabs 10/19/24 03/05/25 Rx tablet (Farxiga) metoprolol succinate 50 mg 50 mg PO DAILY #90 tabs 10/19/24 03/05/25 Rx tablet,extended release 24 hr (Toprol XL) sacubitril 24 mg-valsartan 26 mg 1 tab PO BID #180 tabs 10/19/24 03/05/25 Rx tablet (Entresto) ibuprofen 800 mg tablet 800 mg PO QIDP PRN Mild Pain 11/25/24 03/05/25 History (Scale Score 1-4) lisinopril 10 mg tablet 10 mg PO DAILY 11/25/24 03/05/25 History dulaglutide 0.75 mg/0.5 mL 0.75 mg SQ WEEKLY 03/05/25 03/05/25 History subcutaneous pen injector (Trulicity) New Prescriptions to Start Prescriptions: Allergies Allergy/AdvReac Type Severity Reaction Status Date / Time No Known Allergies Allergy Verified 03/05/25 11:04 Assessment and Plan *Assessment and plan (1) Atrial flutter with rapid ventricular response: Status: Acute Category: Medical Code(s): I48.92 - Unspecified atrial flutter (2) Acute non-ST elevation myocardial infarction (NSTEMI): Status: Acute Category: Medical Code(s): I21.4 - Non-ST elevation (NSTEMI) myocardial infarction (3) HTN (hypertension): Status: Acute Qualifiers: Hypertension type: unspecified Qualified Code(s): I10 - Essential (primary) hypertension Category: Medical Code(s): I10 - Essential (primary) hypertension (4) HLD (hyperlipidemia): Status: Acute Qualifiers: Hyperlipidemia type: other hyperlipidemia Qualified Code(s): E78.49 - Other hyperlipidemia Category: Medical Code(s): E78.5 - Hyperlipidemia, unspecified (5) Prediabetes: Status: Acute Category: Medical Code(s): R73.03 - Prediabetes (6) HFrEF (heart failure with reduced ejection fraction): Status: Acute Category: Medical Code(s): I50.20 - Unspecified systolic (congestive) heart failure (7) Coronary artery disease: Status: Acute Qualifiers: Associated angina: without angina Coronary Disease-Associated Artery/Lesion type: [place] artery [place] vs. transplanted heart: [place] heart Qualified Code(s): I25.10 - Atherosclerotic heart disease of [place] coronary artery without angina pectoris Category: Medical Code(s): I25.10 - Atherosclerotic heart disease of [place] coronary artery without angina pectoris Plan History of coronary artery disease History of stenting NSTEMI Patient endorses episodes of chest pain along with shortness of breath for the past 2 days. EKG on arrival to ER shows a wide-complex tachycardia consistent with A-fib/flutter at a rate of 136 First troponin elevated at 5.5 Last stenting in October of this year Will proceed with left heart catheterization to evaluate coronary artery disease. Discussed risk versus benefits with patient he is agreeable to proceed. Continue Plavix and statin. Patient is also on Eliquis therapy for A-fib. History of paroxysmal atrial fibrillation A-fib In A-fib RVR on presentation to ER at a rate of 130 Start esmolol drip On Eliquis at home History of HFrEF Known ejection fraction of 35 to 40% Repeat limited echo is pending CV summary 03/05/2025: Limited echo is pending. Start esmolol drip. Plan for left heart catheterization at 1300 today. 1100 Update: Patient maxed on esmolol drip and still in A-fib/flutter at a rate of 130. Will start digoxin and amiodarone.
--- NOTE | 2025-03-05 10:05 | PC.NURSE ---
HS notified of the need for a bed to admit to the hospitalist.
--- NOTE | 2025-03-05 10:08 | HMH.PHAINT1 ---
Pharmacy Intervention Comments: MEDICATION RECONCILIATION COMPLETED ON PATIENT USING EXTERNAL FILL HISTORY FROM PHARMACY. -[facility]OW[facility], [facility]
--- NOTE | 2025-03-05 10:22 | PC.NURSE ---
received report from janelle de jesus
--- NOTE | 2025-03-05 10:25 | PC.NURSE ---
REPORT CALLED TO ANNEMARIE RUSSELL AT THIS TIME FOR ROOM [id number]
--- NOTE | 2025-03-05 10:31 | IR_ITS ---
APPROVED REPORT Patient Location: Inpatient [facility] Carrier: ALEX May RT (R) PROCEDURES 1. Left heart catheterization 2. Selective coronary arteriography 3. Left ventriculography 4. PTCA/stent of the right coronary artery INDICATION 1. Non-Q wave myocardial infarction, 2. Coronary artery disease SCAI INDICATION Patient is a 54-year-old white male with known brittle coronary artery disease who presented with rapid ventricular rate atrial fibrillation and pressure and tightness in the chest. Significantly get cardiac enzymes. Known coronary disease. Prior stents back in September of this year. Multivessel. Secondary to this and his symptoms were referred directly for left heart catheterization Informed consent was obtained prior to the procedure. COMPLICATIONS None Estimated Blood Loss: Less than 10mls TECHNIQUE One percent lidocaine used to anesthetize the right anterior aspect of the wrist. The right radial artery was accessed via the Seldinger technique. A 6 Romanian sheath was placed in the right radial artery. 2.5 mg of Verapamil, 800 mcg of nitroglycerin, 1mg Lidocaine and 5000 U Heparin were given through the arterial sheath. The JL3 catheter was also used to perform left heart catheterization, left ventriculogram and selective coronary angiogram. I also used a 3 DRC guide catheter. During the procedure extra heparin was given. ACT therapeutic. At the end of the procedure the sheath was removed good hemostasis was achieved using Traclet band, patient was transferred to the postop holding area in stable condition. ANGIOGRAPHIC RESULTS The left main artery Angiographically normal The left anterior descending artery Had stents noted throughout the proximal/mid vessel. Stents. Disease. Normal flow into the mid and distal vessel. Diffuse 20 to 30% mid and distal stenoses. Normal flow into the diagonal branches The circumflex artery Large in size. In the proximal circumflex at the level of the first obtuse marginal branch eccentric 30% stenosis. The first obtuse marginal branch had diffuse disease throughout its course at 80%. This was noted proximal mid and distal vessel. The vessel was small to moderate in size. Normal LYNNE-3 flow to the distal vessel. There were stents noted throughout the mid/distal vessel which were free of disease. Normal flow into the 3rd, 4th and 5th obtuse marginal branches of the circumflex. The right coronary artery Large and dominant. The right coronary artery had stents noted throughout the proximal/mid/distal vessel. Smooth 30% in-stent thinning in the mid vessel. There was then a focal napkin ring 85 to 90% stenosis in the right coronary artery right at the bend of the right coronary artery. There was also diffuse 30% in-stent stenosis noted in the distal right coronary artery. There was normal flow to the posterior descending artery and posterior lateral branches which had moderate diffuse disease The PARRY ventriculogram reveals Normal left ventricular systolic function with an ejection fraction of 60% The left ventricular end-diastolic pressure 24 I had used 3 [facility] guide catheter to engage the right coronary artery. After I took my diagnostic angiography pictures I used a Choice PT wire and wired the right coronary artery. Additional heparin given. ACT therapeutic. 391. I had a difficult time even getting my wire past the midportion. I used a 2.0 balloon just to help me get support. It was a 2.0 x 12 mm. With that I was able to get the wire down into the posterior descending artery. Unable to primarily cross the stent. I was trying to get a 3.0 x 12 mm [place] frontier down. Secondary to this I used a guide liner to help give me support. With that support catheter I was able to get across and right to the focal area of stenoses. Took that stent up to 24 radha for 10 seconds. Resulted in 0% residual stenosis and excellent brisk flow to the posterior descending artery and posterior lateral branch. Right radial band placed without difficulty IMPRESSION 1. Severe focal in-stent stenosis noted in the mid large dominant right coronary artery 2. Severe branch vessel disease which is diffuse noted in the first obtuse marginal branch of the circumflex 3. Patent stents throughout the mid/distal circumflex 4. Patent stents throughout the proximal/mid left anterior descending 5. Preserved normal left ventricular systolic function 6. Elevated left ventricular end-diastolic pressure 7. Successful angioplasty and stenting of the mid large dominant right coronary artery with an [place] frontier drug-eluting stent resulting in 0% residual stenosis 9. Successful placement of a radial band on the right radial artery PLAN 1. Patient had 1 area of focal in-stent restenosis. I felt like stenting that at that area since there was only 1 layer of stents was the best way to go. It was a very focal stenoses. I felt like 1 stent in that area taken up to high-pressure would be the best option for long-term patency. Now that he has had atrial fibrillation not only will he be on antiplatelet therapy but he will also be on Eliquis for Xarelto which should also help with the in-stent restenosis process. Aggressive risk factor modification. Begin with continued to treat that branch vessel disease medically. It was noted before. If he fails aggressive medical therapy he could be brought for potential intervention to that branch vessel but at this time I favor medical therapy. Plavix 600 mg x 1 now then continue on 75 mg daily. Aspirin daily. I would continue with aspirin, Plavix as well as anticoagulation for atrial fibrillation for 30 days and then he would be able to drop the aspirin. Follow-up in cardiology clinic 1 to 2 weeks after discharge Electronically signed by : Dayday Bryant MD 03/05/2025 14:08:20
[2025-03-05 10:40] LABS: Troponin I 5.71 ng/ml (0.00-0.034)
--- NOTE | 2025-03-05 10:44 | PC.NURSE ---
patient arrived to the ICU via wheelchair @[id number]
[2025-03-05] MEDS: ESMOLOL HCL IN STERILE WATER 2,500 MG/250 ML PIGGYBACK 133.36 MG IV (11:09)
[2025-03-05] MEDS: AMIODARONE HCL 150 MG in DEXTROSE 5 % IN WATER 100 ML 600 MG IV (11:40)
[2025-03-05] MEDS: DIGOXIN 0.25MG TABLET 250 MCG PO (11:41)
[2025-03-05 11:42] LABS: POC Glucose,Bedside 113 gm/dL (70-110)
[2025-03-05] MEDS: AMIODARONE HCL 900 MG in DEXTROSE 5 % IN WATER 500 ML 33.3 MG IV (11:53)
[2025-03-05] MEDS: ESMOLOL HCL IN STERILE WATER 2,500 MG/250 ML PIGGYBACK 132.47 MG IV (13:08)
[2025-03-05] MEDS: HEPARIN 1,000 UNITS/500ML NS (CATH LAB) 3000 UNIT IV (13:25)
[2025-03-05] MEDS: LIDOCAINE 1% 10ML MDV 10 ML IJ (13:25)
[2025-03-05] MEDS: NITROGLYCERIN 800MCG/8ML SYR (CATH LAB) 800 MCG IA (13:25)
[2025-03-05] MEDS: 0.9 % SODIUM CHLORIDE 500 ML 25 ML IV (13:26)
[2025-03-05] MEDS: VERAPAMIL 2.5MG/ML 2ML VIAL 2.5 MG IV (13:26)
--- NOTE | 2025-03-05 13:54 | PC.NURSE ---
received report from Lanny SHARPE in laboratory development technician
[2025-03-05] MEDS: IOPAMIDOL-370 (76%);100ML BOTTLE 130 ML IV (14:13)
[2025-03-05 14:16] LABS: CATHL Activated Clotting Time 391 SEC (74-125)
--- NOTE | 2025-03-05 14:35 | PC.NURSE ---
pt returned from scientific laboratory supervisor. nsr noted on monitor with heart rate of 60. dr bagley notified. he stated he would call cardiology and speak with them about what they would like to do then call back to confirm and give further instructions.
--- NOTE | 2025-03-05 14:40 | PC.NURSE ---
called dietary to get pt a tray. confirmed by pt that he did take both plavix and eliquis this am.
[2025-03-05] MEDS: HEPARIN 1,000 UNITS/ML 10ML VIAL (CATH LAB) 5000 UNIT IV (14:45)
[2025-03-05] MEDS: FENTANYL 100MCG/2ML VIAL 50 MCG IV (14:45)
[2025-03-05] MEDS: MIDAZOLAM HCL 1MG/ML 5ML VIAL 1 MG IV (14:45)
--- NOTE | 2025-03-05 14:47 | PC.NURSE ---
provided pt with lunch tray.
[2025-03-05] MEDS: NICOTINE 21MG/24HR PATCH 21 MG TD (15:35)
[2025-03-05] MEDS: FUROSEMIDE 40MG/4ML VIAL 40 MG IV (15:36)
[2025-03-05 16:36] LABS: POC Glucose,Bedside 189 gm/dL (70-110)
[2025-03-05] MEDS: humaLOG 100 UNITS/ML 10ML VIAL (SSI) SUBCUT (16:43)
[2025-03-05] MEDS: APIXABAN 5MG TABLET 5 MG PO (20:53)
[2025-03-05] MEDS: TRAZODONE 50MG TABLET 100 MG PO (20:53)
[2025-03-05] MEDS: TAMSULOSIN 0.4MG CAPSULE 0.4 MG PO (20:53)
[2025-03-05] MEDS: ATORVASTATIN 40MG TABLET 40 MG PO (20:53)
--- NOTE | 2025-03-05 21:05 | PC.NURSE ---
Notified CANE SPLICER that patient HR 60, sys bp 118, remains on amiodarone drip, currently in sinus rhythm and scheduled dose of Metoprolol is due at this time. Ok to hold and reevaluate in the am with cardiology.
[2025-03-05 21:06] LABS: POC Glucose,Bedside 102 gm/dL (70-110)
[2025-03-06] VITALS (20 sets, daily range): BP systolic 126–160; BP diastolic 72–98; PULSE 59–80; RESP 10–24; TEMP 36.8–37.1; O2SAT 93–97; BMI 35.1; BMI 35.7
[2025-03-06 06:10] LABS: POC Glucose,Bedside 119 gm/dL (70-110)
--- NOTE | 2025-03-06 06:49 | PC.NURSE ---
Patient slept well overnight, VSS, afebrile and remains on room air. No c/o pain, no s/s of distress.
[2025-03-06 07:19] LABS: Hematocrit 53.9 % (42.0-52.0); Immature Granulocytes % 0.6 %; Mean Corpuscular HGB Conc 32.8 g/dL (31.8-35.4); Mean Corpuscular Hemoglobin 30.7 pg (27.0-31.2); Mean Corpuscular Volume 93.4 fl (80-94); Nucleated Red Blood Cells % 0 %; Platelet Count 148 K/mm3 (142-424); Red Blood Count 5.77 M/mm3 (4.60-6.20); Red Cell Distribution Width-SD 52.3 fL; White Blood Count 12.0 K/mm3 (4.8-10.8)
[2025-03-06 07:32] LABS: Hemoglobin 17.8 g/dL (14.1-18.0)
[2025-03-06 07:43] LABS: Alanine Aminotransferase 37 U/L (12-78); Albumin Level 3.5 g/dl (3.5-5.0); Albumin/Globulin Ratio 1.1 (1.1-1.8); Alkaline Phosphatase 79 U/L (38-126); Anion Gap 8.8 mEq/L (5-15); Aspartate Amino Transferase 54 U/L (17-59); Bilirubin,Total 0.9 mg/dl (0.2-1.3); Blood Urea Nitrogen 23 mg/dl (9-20); Calcium 8.2 mg/dl (8.4-10.2); Carbon Dioxide 23 mmol/L (22.0-30.0); Chloride 105 mmol/L (98-107); Creatinine Clearance Estimated 112 mL/min (50-200); Creatinine,Serum 1.20 mg/dl (0.66-1.25); Estimated Glomerular Filt Rate 63 ml/min (>60); GFR (African American) 77 ML/MIN (>60); Globulin 3.2 g/dL (1.3-3.2); Glucose 120 mg/dl (74-100); Magnesium 1.8 mg/dl (1.6-2.3); Potassium 3.8 mmoL/L (3.5-5.1); Sodium 133 mmol/L (136-145); Total Protein,Serum 6.7 g/dl (6.3-8.2)
[2025-03-06] MEDS: FUROSEMIDE 40MG/4ML VIAL 40 MG IV (08:32)
[2025-03-06] MEDS: METOPROLOL SUCCINATE XL 50MG TABLET 50 MG PO ×2 (08:32→20:01)
[2025-03-06] MEDS: CLOPIDOGREL 75MG TAB 75 MG PO (08:34)
[2025-03-06] MEDS: DAPAGLIFLOZIN PROPANEDIOL 10 MG TABLET PO (08:34)
[2025-03-06] MEDS: APIXABAN 5MG TABLET 5 MG PO ×2 (08:34→20:01)
[2025-03-06] MEDS: FLUOXETINE 20MG CAPSULE 20 MG PO (08:34)
[2025-03-06 11:28] LABS: POC Glucose,Bedside 139 gm/dL (70-110)
[2025-03-06] MEDS: AMIODARONE 200MG TABLET 400 MG PO ×2 (12:04→20:01)
--- NOTE | 2025-03-06 14:44 | PC.NURSE ---
pt left the ICU with med surg staff at 1448
--- NOTE | 2025-03-06 14:46 | PC.NURSE ---
arrived by w/c from ICU
--- NOTE | 2025-03-06 15:49 | P.PN_ITS ---
Subjective *Date: 03/06/25 *Time: 15:49 Interval history: Patient feeling little better today. Heart rate controlled. On room air. Denies chest pain or shortness of breath. Transitioning to oral amiodarone today. Medical Exam Vital signs and Labs for Last 24 Hours: Vital Signs Temp Pulse Pulse Resp BP BP Pulse Ox 03/06/25 15:32 98.7 F 63 18 160/86 H 96 03/06/25 13:30 65 21 150/89 H 95 03/06/25 13:00 65 24 139/74 94 L 03/06/25 13:00 03/06/25 12:07 96 03/06/25 12:00 64 18 148/89 H 94 L 03/06/25 12:00 64 03/06/25 11:19 03/06/25 11:00 66 19 136/88 95 03/06/25 10:00 62 19 142/84 H 95 03/06/25 09:00 69 16 146/90 H 96 03/06/25 09:00 03/06/25 08:13 97 03/06/25 08:00 98.7 F 70 22 135/86 95 03/06/25 08:00 72 03/06/25 07:00 60 16 144/92 H 94 L 03/06/25 06:48 03/06/25 06:00 66 19 148/98 H 96 03/06/25 05:00 65 15 137/88 94 L 03/06/25 05:00 03/06/25 04:00 98.3 F 63 10 L 138/90 94 L 03/06/25 04:00 03/06/25 04:00 64 03/06/25 03:00 63 17 128/72 94 L 03/06/25 03:00 03/06/25 02:00 61 18 126/80 93 L 03/06/25 01:00 64 18 128/78 94 L 03/06/25 01:00 03/06/25 00:00 61 03/06/25 00:00 98.5 F 59 L 16 127/81 94 L 03/06/25 00:00 94 L 03/05/25 23:00 03/05/25 23:00 111/70 03/05/25 23:00 58 L 12 111/70 94 L 03/05/25 22:00 63 17 122/76 94 L 03/05/25 21:43 60 14 125/75 94 L 03/05/25 21:00 64 10 L 135/89 97 03/05/25 21:00 03/05/25 20:15 98.5 F 60 14 125/75 95 03/05/25 20:00 60 16 125/74 95 03/05/25 20:00 60 03/05/25 19:52 03/05/25 19:15 62 14 143/103 H 96 03/05/25 19:00 58 L 18 132/81 94 L 03/05/25 18:38 03/05/25 18:15 58 L 18 125/80 95 03/05/25 17:15 56 L 18 134/89 95 03/05/25 17:02 03/05/25 16:45 56 L 20 136/92 H 96 03/05/25 16:15 56 L 20 144/96 H 96 03/05/25 16:10 96 03/05/25 16:00 55 L O2 Del Method 03/06/25 15:32 Room Air 03/06/25 13:30 Room Air 03/06/25 13:00 Room Air 03/06/25 13:00 Room Air, Vapotherm 03/06/25 12:07 Room Air 03/06/25 12:00 Room Air 03/06/25 12:00 03/06/25 11:19 Room Air 03/06/25 11:00 Room Air 03/06/25 10:00 Room Air 03/06/25 09:00 Room Air 03/06/25 09:00 Room Air 03/06/25 08:13 Room Air 03/06/25 08:00 Room Air 03/06/25 08:00 03/06/25 07:00 Room Air 03/06/25 06:48 Room Air 03/06/25 06:00 Room Air 03/06/25 05:00 Room Air 03/06/25 05:00 Room Air 03/06/25 04:00 Room Air 03/06/25 04:00 Room Air 03/06/25 04:00 03/06/25 03:00 Room Air 03/06/25 03:00 Room Air 03/06/25 02:00 Room Air 03/06/25 01:00 03/06/25 01:00 Room Air 03/06/25 00:00 03/06/25 00:00 03/06/25 00:00 Room Air 03/05/25 23:00 Room Air 03/05/25 23:00 03/05/25 23:00 Room Air 03/05/25 22:00 Room Air 03/05/25 21:43 Room Air 03/05/25 21:00 03/05/25 21:00 Room Air 03/05/25 20:15 Room Air 03/05/25 20:00 Room Air 03/05/25 20:00 03/05/25 19:52 Room Air 03/05/25 19:15 Room Air 03/05/25 19:00 Room Air 03/05/25 18:38 Room Air 03/05/25 18:15 Room Air 03/05/25 17:15 Room Air 03/05/25 17:02 Room Air 03/05/25 16:45 Room Air 03/05/25 16:15 Room Air 03/05/25 16:10 Room Air 03/05/25 16:00 Intake and Output 03/05/25 03/06/25 03/06/25 23:59 07:59 15:59 Intake Total 305.91 / 1241.844 120 / 1407.09 1287.09 / 1407.09 Output Total 775 / 1325 600 / 2150 1550 / 2150 Balance -469.09 / -83.156 -480 / -742.91 -262.91 / -742.91 Intake: Intake, Oral Amount 105 / 225 120 / 1090 970 / 1090 Intake, Total IV Amount 200.91 / 1016.844 317.09 / 317.09 Amiodarone HCl 900 mg In 200.91 / 200.91 317.09 / 317.09 Dextrose 5 % in Water 500 ml @ 33.3 mls/hr IV .[id number] [facility] Rx# :[id number] Output: Output, Urine Amount 775 / 1325 600 / 2150 1550 / 2150 Other: Number of Unmeasured Voids 1 Weight 111.357 kg 109.769 kg Patient Weight 03/06/25 23:59 Weight 109.769 kg Laboratory Results - last 24 hr 03/05/25 16:27: POC Glucose 189 H 03/05/25 20:54: POC Glucose 102 03/06/25 05:55: POC Glucose 119 H 03/06/25 06:30: WBC 12.0 H, RBC 5.77, Hgb 17.8 D, Hct 53.9 H, MCV 93.4, MCH 30.7, MCHC 32.8, RDW 15.4, Plt Count 148, MPV 10.6 H, Neut % (Auto) 65.4, Lymph % (Auto) 25.4, [place] % (Auto) 7.4, Eos % (Auto) 0.8, Baso % (Auto) 0.4, Neut # (Auto) 7.8, Lymph # (Auto) 3.0, [place] # (Auto) 0.9, Eos # (Auto) 0.1, Baso # (Auto) 0.1, Sodium 133 L, Potassium 3.8, Chloride 105, Carbon Dioxide 23, Anion Gap 8.8, BUN 23 H, Creatinine 1.20, Estimated Creat Clear 112, Estimated GFR 63, Est GFR ( Amer) 77, Glucose 120 H D, Calcium 8.2 L, Magnesium 1.8, Total Bilirubin 0.9, AST 54, ALT 37, Alkaline Phosphatase 79, Total Protein 6.7, Albumin 3.5 D, Globulin 3.2, Albumin/Globulin Ratio 1.1 03/06/25 11:09: POC Glucose 139 H I & O for Labs for Last 24 Hours: Intake & Output 03/03/25 03/04/25 03/05/25 03/06/25 23:59 23:59 23:59 23:59 Intake Total 1121.844 / 8929.833 9693.09 / 1407.09 Output Total 925 / 1325 2150 / 2150 Balance 196.844 / -83.156 -742.91 / -742.91 Weight 110.393 kg 109.769 kg Constitutional: Present no acute distress, obese and cooperative Head: Present atraumatic and normocephalic ENT: Present normal exam Respiratory: Present normal respiratory effort; Absent rhonchi, wheezes or crackles Cardiac: Present Reg Rate and Rhythm GI: Present soft, distention and normal bowel sounds; Absent tenderness Extremities: Present normal inspection and full ROM Skin: Present intact; Absent erythema Neuro: Present Grossly Intact, alert, awake, oriented x 3 and moves all extremities Assessment and Plan *Assessment and plan (1) Atrial flutter with rapid ventricular response: Status: Acute Category: Medical Code(s): I48.92 - Unspecified atrial flutter (2) Acute non-ST elevation myocardial infarction (NSTEMI): Status: Acute Category: Medical Code(s): I21.4 - Non-ST elevation (NSTEMI) myocardial infarction (3) HTN (hypertension): Status: Acute Qualifiers: Hypertension type: unspecified Qualified Code(s): I10 - Essential (primary) hypertension Category: Medical Code(s): I10 - Essential (primary) hypertension (4) HLD (hyperlipidemia): Status: Acute Qualifiers: Hyperlipidemia type: other hyperlipidemia Qualified Code(s): E78.49 - Other hyperlipidemia Category: Medical Code(s): E78.5 - Hyperlipidemia, unspecified (5) Prediabetes: Status: Acute Category: Medical Code(s): R73.03 - Prediabetes (6) HFrEF (heart failure with reduced ejection fraction): Status: Acute Category: Medical Code(s): I50.20 - Unspecified systolic (congestive) heart failure (7) Coronary artery disease: Status: Acute Qualifiers: Coronary Disease-Associated Artery/Lesion type: [place] artery [place] vs. transplanted heart: [place] heart Associated angina: without angina Qualified Code(s): I25.10 - Atherosclerotic heart disease of [place] coronary artery without angina pectoris Category: Medical Code(s): I25.10 - Atherosclerotic heart disease of [place] coronary artery without angina pectoris (8) Obesity (BMI 30.0-34.9): Status: Chronic Category: Medical Code(s): E66.811 - Obesity, class 1 (9) Depression: Status: Chronic Category: Medical Code(s): F32.A - Depression, unspecified Plan Mr. Lemons is a 54-year-old male with history of obesity and A-fib. Presents with shortness of breath and chest pressure. Found to have NSTEMI and be in a flutter with RVR. Discussed case with ER physician, request admission for further management and initiation of rate controlling drips. Cardiology consulted to assist with care. I decided to admit for further management to the ICU/stepdown due to necessitating esmolol drip. Initially mild distress. Sh owing improvement. In sinus rhythm now. Will transition to oral agents today and monitor for 24 more hours. Problems addressed as follows: NSTEMI, type 4c (in stent re-stenosis) A flutter with RVR History of paroxysmal A-fib HFrEF - Patient troponin elevated at 5.5 at admission. BNP was elevated at 3800. Heart rate in the 140s. Improved to heart rate in the 60s and 70s today. - Transition to metoprolol succinate 50 mg twice daily - Finishing amiodarone drip today. Transition to 400 mg p.o. amiodarone twice daily - Taken for left heart cath 03/05/25, received 1 stent to RCA as he had in-stent stenosis. -40 mg Lasix IV once today. - Reviewed history from EMR, had cath and echo in September. Received 4 stents in September. Heart cath showed EF 35 to 40% at that time. Repeat echo pending - Continue Eliquis 5 mg twice daily. - Continue Plavix 75 mg daily, Lipitor 40 mg nightly - Resume Entresto 24/26 mg twice daily - White count 12, hemoglobin 17.8. Kidney function stable with BUN 23, creatinine 1.2. Potassium 3.9, magnesium 1.8 - Repeat CBC, CMP, magnesium ordered for the morning. Prediabetes: Initiate sliding scale insulin with fingersticks ACHS. Continue dapagliflozin 10 mg daily. Holding Trulicity while inpatient Obesity complicates all aspects of his care BPH: Continue tamsulosin 0.4 mg nightly Sleep disorder: Continue trazodone 100 mg nightly Depression: Continue Prozac 20 mg daily Full code eliquis bid diabetic diet
--- NOTE | 2025-03-06 18:17 | PC.NURSE ---
no issues since pt has came to the floor. alert and oriented x4, currently in nsr on tele. independent ambulating. no needs at this time
--- NOTE | 2025-03-06 19:41 | EXP.EVENT.NO ---
Patient complained of headache so wrote for some Tylenol 1000 mg every 6 as needed pain or fever
[2025-03-06] MEDS: TAMSULOSIN 0.4MG CAPSULE 0.4 MG PO (20:01)
[2025-03-06] MEDS: SACUBITRIL/VALSARTAN 24-26MG TABLET 1 EACH PO (20:01)
[2025-03-06] MEDS: ATORVASTATIN 40MG TABLET 40 MG PO (20:01)
[2025-03-06] MEDS: ACETAMINOPHEN 500MG TAB 1000 MG PO (20:02)
[2025-03-06] MEDS: TRAZODONE 50MG TABLET 100 MG PO (20:02)
[2025-03-06 20:18] LABS: POC Glucose,Bedside 142 gm/dL (70-110)
[2025-03-07] VITALS: BP 121/66; PULSE 60; PULSE 80; RESP 17; TEMP 36.6; O2SAT 94
--- NOTE | 2025-03-07 03:36 | PC.NURSE ---
Pt A&OX4 and has tolerated room air. He has remained NSR on tele. He did complain of a headache and arm pain and was medicated per MAR. He has ambulated room independently. No complaints at this time, call light within reach.
[2025-03-07 04:00] VITALS: BP 152/70; PULSE 64; PULSE 70; RESP 18; TEMP 36.8; O2SAT 97; BMI 36.1
[2025-03-07 06:24] LABS: Hematocrit 51.9 % (42.0-52.0); Hemoglobin 17.0 g/dL (14.1-18.0); Immature Granulocytes % 0.3 %; Mean Corpuscular HGB Conc 32.8 g/dL (31.8-35.4); Mean Corpuscular Hemoglobin 30.4 pg (27.0-31.2); Mean Corpuscular Volume 92.7 fl (80-94); Nucleated Red Blood Cells % 0 %; Platelet Count 143 K/mm3 (142-424); Red Blood Count 5.60 M/mm3 (4.60-6.20); Red Cell Distribution Width-SD 50.7 fL; White Blood Count 12.0 K/mm3 (4.8-10.8)
[2025-03-07 06:32] LABS: Alanine Aminotransferase 33 U/L (12-78); Albumin Level 3.6 g/dl (3.5-5.0); Albumin/Globulin Ratio 1.1 (1.1-1.8); Alkaline Phosphatase 72 U/L (38-126); Anion Gap 7.7 mEq/L (5-15); Aspartate Amino Transferase 35 U/L (17-59); Bilirubin,Total 1.0 mg/dl (0.2-1.3); Blood Urea Nitrogen 22 mg/dl (9-20); Calcium 8.4 mg/dl (8.4-10.2); Carbon Dioxide 27 mmol/L (22.0-30.0); Chloride 104 mmol/L (98-107); Creatinine Clearance Estimated 122 mL/min (50-200); Creatinine,Serum 1.10 mg/dl (0.66-1.25); Estimated Glomerular Filt Rate 70 ml/min (>60); GFR (African American) 85 ML/MIN (>60); Globulin 3.2 g/dL (1.3-3.2); Glucose 127 mg/dl (74-100); Magnesium 1.9 mg/dl (1.6-2.3); Potassium 3.7 mmoL/L (3.5-5.1); Sodium 135 mmol/L (136-145); Total Protein,Serum 6.8 g/dl (6.3-8.2)
--- NOTE | 2025-03-07 07:54 | EXP.DC.SUM ---
General Admission date:: 03/05/25 Discharge date: 03/07/25 HPI HPI HPI: Mr. Lemons is a 54-year-old male with history of COPD, tobacco dependence, hypertension, hyperlipidemia, prediabetes, HFrEF, CAD. Has paroxysmal A-fib. Presented to the ER with complaint of 2 days of dyspnea, chest pressure, feeling quite weak and fatigued. Does not recall pressure or pain getting worse with exertion or improving at rest. No referred symptoms to his arms or neck. Stable on room air. Taking his medications as prescribed. On metoprolol for paroxysmal A-fib along with Eliquis for anticoagulation. On arrival to the ER, heart rate noted to be greater than 140s. EKG showed a flutter with RVR and a 2:1 pattern. Cardiology was consulted and patient was initiated on esmolol drip. Labs concerning for elevated BNP of 3800, troponin 5.5. Medicine consulted for admission and further care. On arrival to the stepdown unit, patient appears in mild distress. On esmolol drip. Heart rate 120s to 130s. Stable on room air. Denies nausea or vomiting. No confusion. Alert and oriented x 4. Family at bedside Cardiac history significant for previous stent placement x 8, Echo from 09/18/2024 with EF 35 to 40%. Mild dilation of right ventricle. Cath 09/21/2024 where he received 3 contiguous stents to the RCA, 1 stent to the ostial proximal posterior descending artery, persistent disease in the LAD that was medically managed. Hospital Course Hospital Course Hospital Course: Mr. Lemons is a 54-year-old male with history of obesity and A-fib. Presents with shortness of breath and chest pressure. Found to have NSTEMI and be in a flutter with RVR. Discussed case with ER physician, request admission for further management and initiation of rate controlling drips. Cardiology consulted to assist with care. I decided to admit for further management to the ICU/stepdown due to necessitating esmolol drip. Initially mild distress. Showed improvement on drips and converted to sinus rhythm. Able to transition to oral rate controlling medications with good tolerance. Deemed stable to discharge home with improvement in blood pressure control, rate control, and no further chest discomfort. Close follow-up with cardiology scheduled. Problems addressed as follows: NSTEMI, type 4c (in stent re-stenosis) A flutter with RVR History of paroxysmal A-fib HFrEF - Patient troponin elevated at 5.5 at admission. BNP was elevated at 3800. Heart rate in the 140s. Improved to heart rate in the 60s and 70s on esmolol drip and after heart cath. Able to transition to oral rate controlling medication. Continue metoprolol succinate 50 mg twice daily. Loaded with IV amiodarone. Transition to 400 mg twice daily. Will make dose adjustments when follows up with cardiology. Patient was taken for left heart cath on 03/05/2025, received 1 stent to RCA as he had in-stent stenosis. Diuresed twice during admission with Lasix due to elevated BNP. Tolerated well. Kidney function remained stable. Plan to continue Eliquis 5 mg twice daily for A-fib, Plavix 75 mg daily and Lipitor 40 mg nightly for hyperlipidemia and given his new stent. Resume aspirin 81 mg daily for dual antiplatelet therapy. Continue triple therapy for 1 month, discontinue aspirin thereafter and continue on just Eliquis and Plavix. Continue Entresto 24/26 mg twice daily. Reevaluate need to increase dose for blood pressure control with follow-up with cardiology. Kidney function doing well with BUN 22, creatinine 1.1 on morning of discharge. Prediabetes: Initiated on sliding scale insulin with fingersticks ACHS during admission. Resume home regimen at discharge including dapagliflozin 10 mg daily and Trulicity. BPH: Continue tamsulosin 0.4 mg nightly Sleep disorder: Continue trazodone 100 mg nightly Depression: Continue Prozac 20 mg daily Total time spent on discharge 32 minutes in counseling, documentation, chart review, and direct care with patient. Exam Data for Last 24 hours Vital signs and Labs for Last 24 Hours: Temp Pulse Resp BP Pulse Ox O2 Del Method 98.2 F 64 18 152/70 H 97 Room Air 03/07/25 04:00 03/07/25 04:00 03/07/25 04:00 03/07/25 04:00 03/07/25 04:00 03/07/25 06:44 Laboratory Results - last 24 hr 03/06/25 11:09: POC Glucose 139 H 03/06/25 20:01: POC Glucose 142 H 03/07/25 05:45: WBC 12.0 H, RBC 5.60, Hgb 17.0, Hct 51.9, MCV 92.7, MCH 30.4, MCHC 32.8, RDW 14.8, Plt Count 143, MPV 10.7 H, Neut % (Auto) 69.4, Lymph % (Auto) 20.6, [place] % (Auto) 8.4, Eos % (Auto) 0.8, Baso % (Auto) 0.5, Neut # (Auto) 8.3 H, Lymph # (Auto) 2.5, [place] # (Auto) 1.0, Eos # (Auto) 0.1, Baso # (Auto) 0.1, Sodium 135 L, Potassium 3.7, Chloride 104, Carbon Dioxide 27, Anion Gap 7.7, BUN 22 H, Creatinine 1.10, Estimated Creat Clear 122, Estimated GFR 70, Est GFR ( Amer) 85, Glucose 127 H, Calcium 8.4, Magnesium 1.9, Total Bilirubin 1.0, AST 35 D, ALT 33, Alkaline Phosphatase 72, Total Protein 6.8, Albumin 3.6, Globulin 3.2, Albumin/Globulin Ratio 1.1 I & O for Last 24 hours: Intake & Output 03/04/25 03/05/25 03/06/25 03/07/25 23:59 23:59 23:59 23:59 Intake Total 1121.844 / 1132.668 9137.09 / 2107.09 300 / 300 Output Total 925 / 1325 2800 / 2800 450 / 450 Balance 196.844 / -83.156 -992.91 / -692.91 -150 / -150 Weight 110.393 kg 109.769 kg 110.722 kg Constitutional Constitutional: no acute distress, obese, chronically ill appearing and cooperative *Routine HEENT Exam Head: Present normocephalic Eye: Present EOMI and PERRL ENT: Present mucous membranes moist *Routine Neck Exam Neck: Present supple; Absent lymphadenopathy *Routine Respiratory Exam Respiratory: Present CTA bilaterally; Absent rhonchi, wheezes or crackles *Routine Cardiovascular Exam Cardiovascular: Present RRR *Routine Abdominal Exam Abdominal: Present soft, normoactive bowel sounds and obese; Absent tenderness *Routine Rectal Exam Patient deferred: visual exam *Routine Exam Patient deferred: penile exam *Routine Extremities Exam Extremities: Absent cyanosis, clubbing or edema *Routine Skin Exam Skin: Present intact and warm; Absent rash *Routine Neurological Exam Neurological: Present alert, oriented X3 and moving all extremities; Absent altered mental status Results Data Completed and Pending Labs on day of discharge: Labs from last 24 hours 03/07/25 03/06/25 03/06/25 05:45 20:01 11:09 WBC 12.0 H RBC 5.60 Hgb 17.0 Hct 51.9 MCV 92.7 MCH 30.4 MCHC 32.8 RDW 14.8 Plt Count 143 MPV 10.7 H Neut % (Auto) 69.4 Lymph % (Auto) 20.6 [place] % (Auto) 8.4 Eos % (Auto) 0.8 Baso % (Auto) 0.5 Neut # (Auto) 8.3 H Lymph # (Auto) 2.5 [place] # (Auto) 1.0 Eos # (Auto) 0.1 Baso # (Auto) 0.1 Sodium 135 L Potassium 3.7 Chloride 104 Carbon Dioxide 27 Anion Gap 7.7 BUN 22 H Creatinine 1.10 Estimated Creat Clear 122 Estimated GFR 70 Est GFR ( Amer) 85 Glucose 127 H POC Glucose 142 H 139 H Calcium 8.4 Magnesium 1.9 Total Bilirubin 1.0 AST 35 D ALT 33 Alkaline Phosphatase 72 Total Protein 6.8 Albumin 3.6 Globulin 3.2 Albumin/Globulin Ratio 1.1 DS: Diagnosis Discharge Diagnosis (1) Atrial flutter with rapid ventricular response: Status: Acute Code(s): I48.92 - Unspecified atrial flutter Problem details: Present on admission (2) Acute non-ST elevation myocardial infarction (NSTEMI): Status: Acute Code(s): I21.4 - Non-ST elevation (NSTEMI) myocardial infarction Problem details: Present on admission (3) HTN (hypertension): Status: Acute Code(s): I10 - Essential (primary) hypertension Qualifiers: Hypertension type: unspecified Qualified Code(s): I10 - Essential (primary) hypertension (4) HLD (hyperlipidemia): Status: Acute Code(s): E78.5 - Hyperlipidemia, unspecified Qualifiers: Hyperlipidemia type: other hyperlipidemia Qualified Code(s): E78.49 - Other hyperlipidemia (5) Prediabetes: Status: Acute Code(s): R73.03 - Prediabetes (6) HFrEF (heart failure with reduced ejection fraction): Status: Acute Code(s): I50.20 - Unspecified systolic (congestive) heart failure (7) Coronary artery disease: Status: Acute Code(s): I25.10 - Atherosclerotic heart disease of [place] coronary artery without angina pectoris Qualifiers: Associated angina: without angina Coronary Disease-Associated Artery/Lesion type: [place] artery [place] vs. transplanted heart: [place] heart Qualified Code(s): I25.10 - Atherosclerotic heart disease of [place] coronary artery without angina pectoris (8) Obesity (BMI 30.0-34.9): Status: Chronic Code(s): E66.811 - Obesity, class 1 (9) Depression: Status: Chronic Code(s): F32.A - Depression, unspecified Meds Home Medications and Allergies Home Medications ?Medication ?Instructions ?Recorded ?Confirmed ?Type fluoxetine 20 mg capsule 20 mg PO DAILY 09/18/24 03/05/25 History tamsulosin 0.4 mg capsule 0.4 mg PO HS 09/18/24 03/05/25 History trazodone 100 mg tablet 100 mg PO HS 09/18/24 03/05/25 History albuterol sulfate 90 mcg/actuation 2 puff inhalation Q4HP PRN 09/28/24 03/05/25 History aerosol inhaler (Ventolin HFA) Shortness Of Breath apixaban 5 mg tablet (Eliquis) 5 mg PO BID #180 tabs 10/19/24 03/05/25 Rx atorvastatin 40 mg tablet 40 mg PO HS #90 tabs 10/19/24 03/05/25 Rx clopidogrel 75 mg tablet (Plavix) 75 mg PO DAILY 90 days #90 tabs 10/19/24 03/05/25 Rx dapagliflozin propanediol 10 mg 10 mg PO DAILY #90 tabs 10/19/24 03/05/25 Rx tablet (Farxiga) sacubitril 24 mg-valsartan 26 mg 1 tab PO BID #180 tabs 10/19/24 03/05/25 Rx tablet (Entresto) ibuprofen 800 mg tablet 800 mg PO QIDP PRN Mild Pain 11/25/24 03/05/25 History (Scale Score 1-4) dulaglutide 0.75 mg/0.5 mL 0.75 mg SQ WEEKLY 03/05/25 03/05/25 History subcutaneous pen injector (Trulicity) amiodarone 200 mg tablet 400 mg (2 x 200 mg) PO BID 30 days 03/07/25 Rx #120 tabs aspirin 81 mg tablet 81 mg PO DAILY #30 tabs 03/07/25 Rx metoprolol succinate 50 mg 50 mg PO BID 30 days #60 tabs 03/07/25 Rx tablet,extended release 24 hr (Toprol XL) New Prescriptions to Start Prescriptions: amiodarone Joel Foote aspirin Joel Foote metoprolol succinate [Toprol XL] Joel Foote Allergies Allergy/AdvReac Type Severity Reaction Status Date / Time No Known Allergies Allergy Verified 03/05/25 11:04 Discharge Plan Disposition Patient Disposition: Home, Self-Care Condition: Good Discharge Order Discharge Orders: Discharge Order (Routine); Ordered 03/07/25 Ordered By: Joel Foote Follow up Plan Follow up with: Calixto Moreno MD [Staff Physician, Cardiology] - 03/11/25 2:30 pm Prescriptions/Medication Reconciliation: New amiodarone 200 mg Tablet 400 mg PO BID 30 Days Qty: 120 0RF aspirin 81 mg tablet 81 mg PO DAILY Qty: 30 0RF Continued Eliquis 5 mg tablet 5 mg PO BID Qty: 180 3RF atorvastatin 40 mg tablet 40 mg PO HS Qty: 90 3RF clopidogrel [Plavix] 75 mg tablet 75 mg PO DAILY 90 Days Qty: 90 3RF dapagliflozin propanediol [Farxiga] 10 mg tablet 10 mg PO DAILY Qty: 90 3RF Entresto 24-26 mg tablet 1 tab PO BID Qty: 180 3RF ibuprofen 800 mg tablet 800 mg PO QIDP PRN (Reason: Mild Pain (Scale Score 1-4)) Patient Comments: TAKE ONE TABLET BY MOUTH FOUR TIMES DAILY with food NEEDED albuterol sulfate [Ventolin HFA] 90 mcg/actuation HFA aerosol inhaler 2 puff inhalation Q4HP PRN (Reason: Shortness Of Breath) Patient Comments: inhale TWO puffs BY MOUTH EVERY FOUR HOURS NEEDED FOR wheeze tamsulosin 0.4 mg capsule 0.4 mg PO HS Patient Comments: TAKE 1 CAPSULE BY MOUTH EVERY DAY FOR URINATION trazodone 100 mg tablet 100 mg PO HS Patient Comments: TAKE 1 TABLET BY MOUTH EVERYDAY AT BEDTIME fluoxetine 20 mg capsule 20 mg PO DAILY Patient Comments: TAKE 1 CAPSULE BY MOUTH EVERY DAY FOR MOOD Trulicity 0.75 mg/0.5 mL pen injector 0.75 mg SQ WEEKLY Patient Comments: inject 0.75 mg subcutaneously every week x 4- 8 weeks then contact office for possible dose increase Changed metoprolol succinate [Toprol XL] 50 mg tablet extended release 24 hr 50 mg PO BID 30 Days Qty: 60 3RF Discontinued lisinopril 10 mg tablet 10 mg PO DAILY Patient Comments: TAKE ONE TABLET BY MOUTH EVERY DAY TO improve blood pressure Problem Reconciliation Problems Reviewed?: Yes Patient Discharge Instructions ACTIVITY: Continue current activity DIET: continue same diet and low fat, low cholesterol Stand Alone Forms: [facility] Work Release Patient Instructions: Atrial Fibrillation, DI for Cardiac Catheterization, DI for Surgical Site Infection, Moderate Sedation Print Language: Japanese Providers Primary Care Provider: Olegario Samaniego Admit Provider: Joel Foote Attending Provider: Joel Foote
[2025-03-07 07:59] VITALS: BP 127/78; PULSE 63; RESP 16; TEMP 36.9; O2SAT 95
[2025-03-07 08:00] VITALS: PULSE 70
[2025-03-07] MEDS: SACUBITRIL/VALSARTAN 24-26MG TABLET 2 EACH PO (08:35)
[2025-03-07] MEDS: AMIODARONE 200MG TABLET 400 MG PO (08:36)
[2025-03-07] MEDS: APIXABAN 5MG TABLET 5 MG PO (08:36)
[2025-03-07] MEDS: DAPAGLIFLOZIN PROPANEDIOL 10 MG TABLET PO (08:36)
[2025-03-07] MEDS: METOPROLOL SUCCINATE XL 50MG TABLET 50 MG PO (08:36)
[2025-03-07] MEDS: FLUOXETINE 20MG CAPSULE 20 MG PO (08:37)
[2025-03-07] MEDS: CLOPIDOGREL 75MG TAB 75 MG PO (08:39)
[2025-03-07 18:00] LABS: POC Glucose,Bedside 152 gm/dL (70-110)
--- NOTE | 2025-03-08 11:03 | SW/DCPLANNER ---
Spoke with patient on the phone. Patient stated that he is doing well. Patient stated that he is aware of his upcoming appointment. Patient stated that he was able to get his new medicine picked up. Patient stated that he has no concerns or questions at this time. Mary Zaldivar
== END 2025-03-07 10:55 | disposition home or self-care (01) | DRG 321 ==
LOC: ER 09:48 → ICU 10:11 → 2ND 03-06 14:39
PROVIDERS: Internal Medicine Cardiovascular Disease; Admitting Provider Internal Medicine Adolescent Medicine; Emergency Provider Student in an Organized Health Care Education/Training Program; PCP Family Medicine; Visit Provider Internal Medicine Adolescent Medicine
PROC: 4A023N7 Measurement of Cardiac Sampling and Pressure, Left Heart, Percutaneous Approach (ICD-10-PCS; CPT 93452; principal; 2025-03-05 13:00)
DX: T82.855A Stenosis of coronary artery stent, initial encounter (principal); I21.4 Non-ST elevation (NSTEMI) myocardial infarction; I48.92 Unspecified atrial flutter; I50.22 Chronic systolic (congestive) heart failure; J44.9 Chronic obstructive pulmonary disease, unspecified; I48.0 Paroxysmal atrial fibrillation; I25.10 Atherosclerotic heart disease of native coronary artery without angina pectoris; I11.0 Hypertensive heart disease with heart failure; N40.0 Benign prostatic hyperplasia without lower urinary tract symptoms; G47.9 Sleep disorder, unspecified; F32.A Depression, unspecified; E78.49 Other hyperlipidemia; D75.1 Secondary polycythemia; I44.4 Left anterior fascicular block; E66.811 Obesity, class 1; F17.200 Nicotine dependence, unspecified, uncomplicated; R73.03 Prediabetes; R51.9 Headache, unspecified; Y83.2 Surgical operation with anastomosis, bypass or graft as the cause of abnormal reaction of the patient, or of later complication, without mention of misadventure at the time of the procedure; Z95.5 Presence of coronary angioplasty implant and graft; Z68.34 Body mass index [BMI] 34.0-34.9, adult; Z79.01 Long term (current) use of anticoagulants; Z79.02 Long term (current) use of antithrombotics/antiplatelets; Z79.84 Long term (current) use of oral hypoglycemic drugs; Z79.85 Long-term (current) use of injectable non-insulin antidiabetic drugs; Z79.899 Other long term (current) drug therapy
CPT/HCPCS: 36415; 71045; 71275; 80053; 82803; 82962; 83690; 83735; 83880; 84439; 84443; 84484; 85025; 85347; 93005; 93308; 99152; 99153; 99285; C1725; C1760; C1769; C1874; J0282; J1200; J1644; J1806; J1938; J2003; J2250; J3010; J7040; J7060; J7120; Q9957; Q9967

== ENCOUNTER 2025-03-11 14:10 | Outpatient (CLI) | payer MEDICAID, SELFPAY ==
--- OUTSIDE RECORDS SUMMARY | 2023-08-08 12:21 | XMS_ITS | Encounter Summary ---
Author Organization [facility] Address [address] [place] [id number] Care Team Providers Care Social Work Assistant Name Role Phone Olegario Samaniego MD Primary Care Provider [phone] Encounter Details Date Type Department Care Team (Late st Contact Info) Description 08/08/2023 11:21 AM EST Hospital Encounter [facility] [address] [place] [id number] Social History Tobacco Use Types Packs/Day Years [...] as of this encounter Plan of Treatment Not on file documented as of this encounter Procedures Procedure Name Priority Date/Time Associated Diagnosis Comments XR CHEST PA AND LATERAL Routine 08/08/2023 11:28 AM EST Chronic cough documented in this encounter Results * XR Chest PA & Lateral (08/08/2023 11:28 AM EST) Anatomical Region Laterality Modality Body, Chest N/A Radiographic Zuleika ging Narrative 08/09/2023 8:29 PM EST Joel Lemons [id number] 08/08/2023 Chest X-Ray PA & Lateral Indication: Shortness of breath Comparison: None available Findings: Lungs are clear. No effusions. Heart and mediastinum unremarkable. No pneumothorax. Interpretation: No acute cardiopulmonary findings CToni Mendenhall, DO Please note that portions of this note may have been completed with a voice recognition program. Efforts were made to edit the dictations, but occasionally words are mistranscribed. us Kehinde Mendenhall DO IMG DIAGNOSTIC IMAG ING ORDERABLES Final Result documented in this encounter Visit Diagnoses Not on filedocumented in this encounter Care Teams Social Work Assistant Relationship Specialty Start Date End Date lOegario Samaniego MD [address] [place] [address] PCP - General Family Medicine 05/30/23 documented as of this encounter
--- OUTSIDE RECORDS SUMMARY | 2025-03-11 14:13 | XMS_ITS | Data Portability ---
Author Organization [facility] Address [address] [place] [id number] Assessment No assessment recorded. Plan of Treatment Reminders Order Date Submit Date Provider Last Modified By Organization Details Last Modified Time Details Appointments None recorded. Lab HbA1c (hemoglobin A1c), blood 2023 [facility] (Lab Registration) , [address] , [place], [address], 4 09:24:09 CBC 2023 [facility] (Lab Registration) , [address] [place], [address], 4 09:24:08 CMP, serum or plasma 2023 [facility] (Lab Registration) , [address] [place], [address], 4 09:24:08 lipid panel, serum 2023 [facility] (Lab Registration) , [address] [place] [place], [address], 4 09:24:09 Referral None recorded. Procedures home sleep testing (PROC) 2023 [email or web address] Not available 10:56:57 Surgeries None recorded. Imaging US, echocardiog wilmar, transthorac ic, complete, w/ color flow 2023 [facility], [address] [facility] [address], [place], [address], 4 09:23:53 pharmacolog ic nuclear stress test 2023 024 [facility], [address], [place], [address], 4 09:23:53 Medication Orders nitroglycer in 0.4 mg sublingual tablet 2023 024 [facility] #[id number], [address] [place], [address], 14:39:38 Patient TargetsNo targets recorded. Patient InstructionsNo [...] Address Organization Details Last Updated DateTime 4 065702. 94 g 98 % 98 % 83 /min 128/82 mm[Hg] [facility] & [place] 4 14:36:34 Social History None recorded. Functional Status None recorded. Mental Status None recorded. Family History Nothing Reported. Medical History No medical history recorded. Past Encounters Encounter ID Performer Location Encounter Start Date Encounter Closed Date Diagnosis/Indication Diagnosis SNOMED-CT Code Diagnosis ICD10 Code Diagnosis IMO Codes Diagnosis Note [id number] Eugenia Langley MD [address] [place] [address] 09/16/2023 14:35:25 09/16/2023 14:46:41 Dyspnea on exertion 58392592 R06.09 Exertional shortness of breath in a patient with multiple risk factors for coronary artery disease and history of coronary stents. Could be angina equivalent . We will proceed with ischemic workup. History of placement of stent for coronary artery disease 079844339 Z95.5 multiple coronary stents when the patient was 39 years old for heart attack as per the patient done at [facility] records not available to us. No chest pain. No ischemic changes on the EKG. Continue medical treatment. Essential hypertension 59809831 I10 controlled continue medication s. Dyslipidemia 788808882 E 78.5 On statin follow up fasting lipid profile. Cigarette smoker 8610261 7 F17.210 Strongly encouraged the patient to quit smoking. I had a lengthy discussion with the patient regarding quitting smoking and available measuremen t to help him quit smoking including support groups nicotine patches or medication like Chantix. Obesity 676182338 E66.9 Recommend sleep apnea evaluation . Type 2 rupali betes mellitus without complication 598913215 E11.9 Follow up hemoglobin A1c. Health Concerns Section Related Observation LastModified by Organization Detai ls LastModified Time None Recorded Concern Status LastModified by Organization Details LastModified Time None Recorded Advance Directives Directive None Recorded Payers Insurance Date Sequence Insurance Name Policy Number Policy Arreola Covered Member ID Arreola Member ID Guarantor Name 12/28/2023 1 PASSPORT [employer] (MEDICAID REPLACEMENT - HMO) Joel Lemons [id number] Joel Lemons Notes Date Note Type Note [...] bpm no ischemic changes. Eugenia Langley MD [address] [place] [address], [phone], [facility] & [place] 09/16/2023 14:54:20
--- OUTSIDE RECORDS SUMMARY | 2025-03-11 14:13 | XMS_ITS | Clinical Summary ---
Author Organization [facility] Address [address] [place] [id number] Care Team Providers Care Brake Tester Name Role Phone Olegario Samaniego MD Primary Care Provider [phone] Allergies No known active allergies Medications amLODIPine [...] smoking 10/21/2024 Coronary artery disease invo lving [place] coronary artery of [place] heart with angina pectoris 10/21/2024 Immunizations Immunization [...] 01/08/2025 Insurance PASSPORT BY [employer] Care Teams Brake Tester Relationship Specialty Start Date End Date Olegario Samaniego MD [address] [place] [address] PCP - General Family Medicine 05/30/23
--- OUTSIDE RECORDS SUMMARY | 2025-03-11 14:13 | XMS_ITS | Patient Health Record ---
Author Organization [facility] Address [address] [facility] [place] [address] Care Team Providers Care Manager Equity Name Role Phone Izaiah Naylor Primary Care [...] Status Risk Notes Problem Chronic hepatitis C (771701722) Chronic viral hepatitis C (B18.2) Active confirmed Problem Hypertension (29223683) hypertension (I10) Active confirmed Problem Substance use disorder (0776612925) Substance use disorder (F19.90) Active confirmed Plan Of Treatment Pending Test Test Name Order Date HCV FibroSure 10/26/2021 Insurance Providers Payer Name Payer Address Payer Phone Subscriber Number Group Number Insured Name Patient Relationship to Insured Coverage Start Date Coverage End Date [facility] [address] [address] [place] [phone] [id number] Joel Lemons Self - patient is the [...]
[2025-03-11 14:35] LABS: Hematocrit 52.5 % (42.0-52.0); Hemoglobin 17.7 g/dL (14.1-18.0); Immature Granulocytes % 0.5 %; Mean Corpuscular HGB Conc 33.7 g/dL (31.8-35.4); Mean Corpuscular Hemoglobin 31.4 pg (27.0-31.2); Mean Corpuscular Volume 93.1 fl (80-94); Nucleated Red Blood Cells % 0 %; Platelet Count 151 K/mm3 (142-424); Red Blood Count 5.64 M/mm3 (4.60-6.20); Red Cell Distribution Width-SD 49.6 fL; White Blood Count 7.9 K/mm3 (4.8-10.8)
[2025-03-11 15:38] LABS: Anion Gap 13.4 mEq/L (5-15); Blood Urea Nitrogen 17 mg/dl (9-20); Calcium 9.1 mg/dl (8.4-10.2); Carbon Dioxide 22 mmol/L (22.0-30.0); Chloride 106 mmol/L (98-107); Creatinine,Serum 1.00 mg/dl (0.66-1.25); Estimated Glomerular Filt Rate 78 ml/min (>60); GFR (African American) 95 ML/MIN (>60); Glucose 137 mg/dl (74-100); Potassium 4.4 mmoL/L (3.5-5.1); Sodium 137 mmol/L (136-145)
== END 2025-03-11 23:59 | disposition home or self-care (01) ==
LOC: LAB 14:11
PROVIDERS: PCP Family Medicine; Visit Provider Internal Medicine
DX: E78.5 Hyperlipidemia, unspecified (principal); I10 Essential (primary) hypertension
CPT/HCPCS: 36415; 80048; 85025

== ENCOUNTER 2025-05-13 11:52 | Observation (INO) | payer MEDICAID, SELFPAY ==
--- OUTSIDE RECORDS SUMMARY | 2023-08-08 11:21 | XMS_ITS | Encounter Summary ---
Author Organization [facility] Address [address] [place] [address] Care Team Providers Care Staff Psychologist Name Role Phone Olegario Samaniego MD Primary Care Provider [phone] Encounter Details Date Type Department Care Team (Late Contact Info) Description 08/08/2023 11:21 AM EST Hospital Encounter [facility] [address] [place] [address] Social History Tobacco Use Types Packs/Day Years Used Date Smoking Tobacco: Every Day Cigarettes 1 30 Passive Smoke Exposure: Past Smokeless Tobacco: Never Alcohol Use Standard Drinks/Week Comments Never 0 (1 standard drink = 0.6 oz pur e alcohol) Sex and Gender Information Value Date Recorded Sex Assigned at Not on file Legal Sex Male 8:33 AM EST Gender Identity Not on file Sexual Orientation Not on file documented as of this encounter Plan of Treatment Upcoming Encounters Date Type Department Care Team (Late Contact Info) Description 10/21/2025 1:00 PM EDT Office Visit [facility] [address] [place] [id number] Kehinde Mendenhall, [address] [place] [address] documented as of this encounter Procedures Procedure Name Priority Date/Time Associated Diagnosis Comments XR CHEST PA AND LATERAL Routine 08/08/2023 11:28 AM EST Chronic cough documented in this encounter Results * XR Chest PA & Lateral (08/08/2023 11:28 AM EST) Anatomical Region Laterality Modality Body, Chest N/A Radiographic Zuleika ging Narrative 08/09/2023 8:29 PM EST Joel Lemons [id number] 08/08/2023 Chest X-Ray PA & Lateral Indication: Shortness of breath Comparison: None available Findings: Lungs are clear. No effusions. Heart and mediastinum unremarkable. No pneumothorax. Interpretation: No acute cardiopulmonary findings C. Elias Mendenhall, DO Please note that portions of this note may have been completed with a voice recognition program. Efforts were made to edit the dictations, but occasionally words are mistranscribed. Kehinde Mendenhall DO IMG DIAGNOSTIC IMAG ING ORDERABLES Final Result documented in this encounter Visit Diagnoses Not on filedocumented in this encounter Care Teams Staff Psychologist Relationship Specialty Start Date End Date Olegario Samaniego MD [address] [place] [address] PCP - General Family Medicine 05/30/23 documented as of this encounter
[2025-05-13] VITALS (15 sets, daily range): BP systolic 109–140; BP diastolic 78–114; PULSE 96–117; RESP 14–24; TEMP 36.8–36.9; O2SAT 93–100; BMI 36.1
--- NOTE | 2025-05-13 11:59 | ECG_ITS ---
APPROVED REPORT Exam: Resting ECG HR:110 bpm ECG Measurements Heart Rate 110 AXES OR 168 P -85 QRSd 132 QRS -87 QT 371 T 88 QTc 436 Conclusion ECTOPIC ATRIAL TACHYCARDIA INTRAVENTRICULAR CONDUCTION DELAY [130+ ms QRS DURATION] ANTEROSEPTAL MYOCARDIAL INFARCTION , OF INDETERMINATE AGE [40+ ms Q WAVE IN V1-V4] ABNORMAL ECG UNCONFIRMED REPORT Irregularly irregular tachycardic rhythm with multiple P waves consistent with atrial tachycardia. No ST elevation or depression Electronically signed by : DUONG GUTIERREZ, 05/14/2025 07:30:00
--- NOTE | 2025-05-13 12:07 | ED_ITS ---
<Statement entered by Keegan García MD - 05/14/25 07:00> I was consulted by the LOGAN, and we discussed the complexity of the problems being addressed. I approve the treatment and management plan for this patient's care in the emergency department, thus performing a substantive portion of the medical decision making. Keegan García MD Discharge Plan Disposition Chief Complaint: Arrhythmia/Palpitations Prescriptions Prescriptions: No Action Eliquis 5 mg tablet 5 mg PO BID Qty: 180 3RF atorvastatin 40 mg tablet 40 mg PO HS Qty: 90 3RF dapagliflozin propanediol [Farxiga] 10 mg tablet 10 mg PO DAILY Qty: 90 3RF Entresto 24-26 mg tablet 1 tab PO BID Qty: 180 3RF ibuprofen 800 mg tablet 800 mg PO QIDP PRN (Reason: Mild Pain (Scale Score 1-4)) Patient Comments: TAKE ONE TABLET BY MOUTH FOUR TIMES DAILY with food NEEDED albuterol sulfate [Ventolin HFA] 90 mcg/actuation HFA aerosol inhaler 2 puff inhalation Q4HP PRN (Reason: Shortness Of Breath) Patient Comments: inhale TWO puffs BY MOUTH EVERY FOUR HOURS NEEDED FOR wheeze clopidogrel [Plavix] 75 mg tablet 75 mg PO DAILY 90 Days Qty: 90 3RF tamsulosin 0.4 mg capsule 0.4 mg PO HS Patient Comments: TAKE 1 CAPSULE BY MOUTH EVERY DAY FOR URINATION trazodone 100 mg tablet 100 mg PO HS Patient Comments: TAKE 1 TABLET BY MOUTH EVERYDAY AT BEDTIME fluoxetine 20 mg capsule 20 mg PO DAILY Patient Comments: TAKE 1 CAPSULE BY MOUTH EVERY DAY FOR MOOD Trulicity 0.75 mg/0.5 mL pen injector 0.75 mg SQ WEEKLY Patient Comments: inject 0.75 mg subcutaneously every week x 4- 8 weeks then contact office for possible dose increase amiodarone 200 mg Tablet 400 mg PO BID 30 Days Qty: 120 0RF metoprolol succinate [Toprol XL] 50 mg tablet extended release 24 hr 50 mg PO BID 30 Days Qty: 60 3RF aspirin 81 mg tablet 81 mg PO DAILY Qty: 30 0RF Referrals Follow up/Referrals: Olegario Samaniego [Primary Care Provider, Medical] - See instructions Print Language Print Language: Chilean Discharge ED Provider: Keegan García General Adult [facility] General Chief complaint: Arrhythmia/Palpitations Stated complaint: HIgh HR, had A-fib Time Seen by Provider: 05/13/25 12:10 Mode of Arrival: Ambulatory Source of Information: Patient Description of Symptoms (Recalled from ER Triage Doc. by RN): pt came in today bc he started feeling weird at 0530 this morning and has afib and he checked his hr and noticed it was 115 bpm, pt also noted increase of soa, denies any dizziness or chest pain and denies n/v History of Present Illness HPI narrative: This is a 54-year-old male with a history of A-fib RVR managed on Eliquis and amiodorone, HFrEF, prediabetes, BPH, HLD, HTN, COPD who presents to the emergency department today for evaluation of fast HR. patient reports waking up this morning and feeling like his heart was beating very fast. He typically has not noticed his heart rate. He denies any chest pain. He does report some shortness of breath with rest and activity. He has not had any recent travel or illness. He is an everyday cigarette smoker. Patient recently had [facility] to [facility] on 03/05/25 and has been following up with his ssis ssrs developer. He denies any lower extremity swelling or pain. I reviewed cardiology office visit from March confirming the above history. Patient had a recent cardiac catheterization at the end of February. Related Data Home Medications ?Medication ?Instructions ?Recorded ?Confirmed fluoxetine 20 mg capsule 20 mg PO DAILY 09/18/2408/04 tamsulosin 0.4 mg capsule 0.4 mg PO HS 09/18/24 trazodone 100 mg tablet 100 mg PO HS 09/18/24 albuterol sulfate 90 mcg/actuation 2 puff inhalation Q 4HP PRN 09/28/24 03/11/25 aerosol inhaler (Ventolin HFA) Shortness Of Breath ibuprofen 800 mg tablet 800 mg PO QIDP PRN Mild Pain 11/25/24 03/11/25 (Scale Score 1-4) dulaglutide 0.75 mg/0.5 mL 0.75 mg SQ WEEKLY 03/05/25 03/11/25 subcutaneous pen injector (Trulicity) Previous Rx's ?Medication ?Instructions ?Recorded apixaban 5 mg tablet (Eliquis) 5 mg PO BID #180 tabs 0 10/19/24 atorvastatin 40 mg tablet 40 mg PO HS #90 tabs 05/12/2 5 dapagliflozin propanediol 10 mg 10 mg PO DAILY #90 tab s 10/19/24 tablet (Farxiga) sacubitril 24 mg-valsartan 26 mg 1 tab PO BID #180 tab s 10/19/24 tablet (Entresto) amiodarone 200 mg tablet 400 mg (2 x 200 mg) PO BID 3 0 days 03/07/25 #120 tabs aspirin 81 mg tablet 81 mg PO DAILY #30 tabs 02/09 02/01 metoprolol succinate 50 mg 50 mg PO BID 30 days #60 ta bs 03/07/25 tablet,extended release 24 hr (Toprol XL) clopidogrel 75 mg tablet (Plavix) 75 mg PO DAILY 90 da ys #90 tabs 03/11/25 Allergies Allergy/AdvReac Type Severity Reaction Status Date / Time No Known Allergies Allergy Verified 03/11/25 14:46 [facility] Disclaimer: The information contained in this section may have been updated after the patient was seen, as this information can be updated by other users. Medical History Thyroid mass Tobacco dependence syndrome Prediabetes Anxiety Depression BPH (benign prostatic hyperplasia) HLD (hyperlipidemia) HTN (hypertension) Heart attack COPD (chronic obstructive pulmonary disease) Surgical History Stented coronary artery History of incision and drainage Hx of heart artery stent S/P cardiac catheterization Family History Family/Other Thyroid disorder Mother No problems noted. Grandmother Thyroid disorder Grandfather Thyroid disorder Other No significant family history Social History Smoking Status: Current every day smoker alcohol intake: current current occupational status: other Travel in the last 8 weeks?: None Have you lived/traveled outside US in past 30 days?: No Contact w/someone who lives/traveled outside US past 30 days?: No Exposure to someone with infectious disease in past 14 days?: No Do you have a fever (greater than 100.4 F or 38 C)?: No Have you tested positive for COVID-19?: No Exposed to someone with COVID-19 in past 14 days?: No Do you have a sore throat?: No Do you have a cough?: No Do you have any weakness?: No Do you have any diarrhea?: No Are you experiencing any unusual bleeding?: No Do you have any muscle aches/pain?: No Do you have any abdominal pain?: No Are you experiencing loss of taste or smell?: No Other Medical History Have you received the Flu Vaccine for this season: No Have you received the Pneumonia Vaccine: No ROS Obtained: Yes Systems reviewed as appropriate & no additional complaints except as documented Physical Exam General General appearance: alert and in no apparent distress Comment: Well-appearing, no acute distress. Sitting comfortably on hospital stretcher. Head Head exam: atraumatic and normocephalic Neck Neck exam: Present full ROM Respiratory Respiratory exam: Present normal lung sounds bilaterally; Absent respiratory distress Cardiovascular Cardiovascular exam: Present normal rhythm and tachycardia Expanded Cardiovascular Exam Peripheral pulses: 2+: radial (R), radial (L), dorsalis pedis (R) and dorsalis pedis (L) Abdominal Exam Abdominal exam: Present soft; Absent distention or tenderness Extremities Exam Extremities exam: Present normal inspection and other (No lower extremity edema.) Neurological Exam Neurological exam: Present alert and oriented X3 Medical Decision Making Medical Records Screening: Per USPSTF and CDC recommendations, given the prevalence of disease in our region, it is our hospital?s policy to screen for HIV and viral Hepatitis for all patients aged 18 and over and those with ongoing risk factors. Edmundo Inquiry Pt receiving controlled substance: No Vital Signs: 05/13/25 11:55 05/13/25 12:00 05/13/25 12:31 Temperature 98.3 F Temperature Source Oral Pulse Rate 100 H 117 H Pulse Rate [Left Radial] 114 H Respiratory Rate 24 20 21 Blood Pressure 140/104 H 138/98 H Blood Pressure [Right Arm] 134/104 H Blood Pressure Mean [Right Arm] 114 02 Sat by Pulse Oximetry 97 93 L 98 Oxygen Delivery Method Room Air 05/13/25 12:40 05/13/25 13:00 05/13/25 13:30 Temperature Temperature Source Pulse Rate 96 H 116 H 115 H Pulse Rate [Left Radial] Respiratory Rate 14 20 19 Blood Pressure 115/87 133/95 H 129/95 H Blood Pressure [Right Arm] Blood Pressure Mean [Right Arm] 02 Sat by Pulse Oximetry 96 95 97 Oxygen Delivery Method Room Air 05/13/25 14:00 Temperature Temperature Source Pulse Rate 116 H Pulse Rate [Left Radial] Respiratory Rate 15 Blood Pressure 124/94 H Blood Pressure [Right Arm] Blood Pressure Mean [Right Arm] 02 Sat by Pulse Oximetry 96 Oxygen Delivery Method Room Air Lab Data Lab Results 05/13/25 12:22: WBC 9.6, RBC 6.13, Hgb 19.7 H, Hct 58.0 H, MCV 94.6 H, MCH 32.1 H, MCHC 34.0, RDW 13.9, Plt Count 166, MPV 10.6 H, Neut % (Auto) 57.7, Lymph % (Auto) 32.7, Pepin % (Auto) 7.7, Eos % (Auto) 0.9, Baso % (Auto) 0.6, Neut # (Auto) 5.6, Lymph # (Auto) 3.2, Pepin # (Auto) 0.7, Eos # (Auto) 0.1, Baso # (Auto) 0.1 05/13/25 13:30: Sodium 133 L, Potassium 3.6, Chloride 104, Carbon Dioxide 22, Anion Gap 10.6, BUN 18, Creatinine 1.20, Estimated Creat Clear 112, Estimated GFR 63, Est GFR ( Amer) 77, Glucose 147 H, Calcium 8.7, Total Bilirubin 0.6, AST 49, ALT 69, Alkaline Phosphatase 86, Troponin I 0.28 H, NT-Pro-B Natriuret Pep 1430 H, Total Protein 7.4, Albumin 4.1, Globulin 3.3 H, Albumin/Globulin Ratio 1.2 05/13/25 12:22 05/13/25 13:30 Orders (Tests/Meds): ED MEDICATIONS Discontinued Medications Generic Name Dose Route Start Last Admin Trade Name Freq PRN Reason Stop Dose Admin Sodium Chloride 1,000 mls @ 999 mls/hr 05/13/25 12:19 05/13/25 14:39 Sod Chlor 0.9% 1000ml Bag IV 05/13/25 13:19 Infused .Q1H1M ONE Infusion Iopamidol 70 ml 05/13/25 14:16 05/13/25 14:17 Iopamidol-370 (76%);100ml Bottle IV 05/13/25 14:17 70 ml ONCE ONE Administration Metoprolol Tartrate 5 mg 05/13/25 12:27 05/13/25 12:31 Metoprolol Tartrate 5mg/5ml Vial IV 05/13/25 12:28 5 mg ONCE ONE Administration Sodium Chloride 50 ml 05/13/25 14:16 05/13/25 14:17 0.9 % Sodium Chloride 50 Ml Vial IV 05/13/25 14:17 50 ml ONCE ONE Administration Sodium Chloride 10 ml 05/13/25 14:16 05/13/25 14:17 Sodium Chloride 0.9% 10ml Syr (Rad Only) IV 05/13/25 14:17 10 ml ONCE ONE Administration ORDERS Category Date Time Status CTA Chest [CT angio chest PE protocol] Stat Cat Scan 05/13/25 12:19 Taken BNP [NT Pro Brain Natriuretic Pep.] Stat Lab 05/13/25 13:30 Completed CBC w/Auto Diff [Complete Blood Count Auto Diff] Stat Lab 05/13/25 12:22 Completed CMP [Comprehensive Metabolic Panel] Stat Lab 05/13/25 13:30 Completed Trop I [Troponin I] Stat Lab 05/13/25 13:30 Completed Troponin I Q3H Lab 05/13/25 15:22 Received Troponin I Q3H Lab 05/13/25 18:30 Ordered HEART Score History (anamnesis): Highly suspicious ECG: Non-specific disturbance Age: 45-65 years Risk factors: 1-2 risk factors Troponin: > 3x normal limit HEART Score: 7 Medical Decision Narrative: In summary, this is a 54-year-old male with a significant cardiac history who presents to the emergency department today for evaluation of fast heart rate. Patient woke up this morning and felt his heart rate was faster than normal. He typically is unaware of his heartbeat. Patient report some associated shortness of breath but has not had any chest pain. He denies any swelling of the extremities. No cough or illness. On exam patient is well-appearing and in no acute distress. Sitting comfortably on hospital stretcher. He is hypertensive and tachycardic. Upon auscultation, he is certainly tachycardic though seems to have a regular rhythm. Abdomen is soft, nondistended, nontender to palpation. Radial and ulnar pulses 2+ and equal bilaterally. Dorsalis pedis pulses 2+ equal bilaterally. There is no lower extremity edema. Differential diagnoses include but are not limited to atrial fibrillation, sinus tachycardia, atrial tachycardia, pulmonary embolism, ACS, among others. Plan will be for laboratory workup including CBC, CMP, troponins, BNP, EKG. We will obtain CTA of the chest to evaluate for pulmonary embolism. Patient's EKG similar to last. There is atrial tachycardia. No acute ST elevations noted. 2:15 PM: BNP elevated at 1430. Previous elevated to 3860 on 03/05/25. Troponin elevated at 0.28 today. Will repeat second troponin. Previous elevation on 03/05/25 at 5.71. Patient continues to deny chest pain. Awaiting CTPE. 2:48 PM: Spoke with cardiology clinic who reviewed patient's history and EKG. In March he had converted to sinus rhythm. Cardiology team feels most comfortable admitting the patient and may repeat his cardiac cath tomorrow. They recommend IV Amio reload overnight. Patient was recently decreased from 400 mg to 200 mg twice daily in March. I have consulted our hospital medicine team to proceed with admission at this time. 3:25 PM: Cardiology team evaluated the patient the emergency department confirms plan to reload Amio overnight, double the patient's metoprolol, possible cardiac catheterization tomorrow. I discussed the case with our hospital medicine team who will admit the patient to their service and continue management. Critical Care Critical Care Time Critical Care Time: No
--- OUTSIDE RECORDS SUMMARY | 2025-05-13 12:09 | XMS_ITS | Clinical Summary ---
Author Organization [facility] Address [address] [place] [id number] Care Team Providers Care Retail Marketing Manager Name Role Phone Olegario Samaniego MD Primary Care Provider [phone] Allergies No known active allergies Medications amLODIPine [...] smoking 10/21/2024 Coronary artery disease invo lving [place] coronary artery of [place] heart with angina pectoris 10/21/2024 Immunizations Immunization [...] 10/21/2024 12:35 PM EDT Plan of Treatment Upcoming Encounters Date Type Department Care Team (Late st Contact Info) Description 10/21/2025 1:00 PM EDT Office Visit [facility] [address] [place] [address] Kehinde Mendenhall, [address] [place], [place] [id number] Health Maintenance Due Date Last Done Comments [...] 01/08/2025 Insurance [employer] Care Teams Retail Marketing Manager Relationship Specialty Start Date End Date Olegario Samaniego MD [address] [place] [address] PCP - General Family Medicine 05/30/23
--- NOTE | 2025-05-13 12:19 | CT_ITS ---
FINAL REPORT TECHNIQUE: The patient was injected with IV contrast. Axial images were obtained through the chest in a PE protocol. 3-D reconstruction images were also performed. Individualized dose reduction techniques using automated exposure control or adjustment of the MA and/or KV according to patient's size were employed. CLINICAL HISTORY: Tachycardia, SOB COMPARISON: 03/05/2025 FINDINGS: Mediastinal vasculature is adequately opacified. No pulmonary artery filling defects are identified to suggest PE. There is no aortic dissection. There is an asymmetrically enlarged left lobe of the thyroid. There are scattered calcifications, probably due to goiter. The trachea is deviated to the right. There is no axillary adenopathy. There is no hilar or mediastinal adenopathy. The heart size is normal. There is no pericardial or pleural effusion. No suspicious infiltrate or nodule is identified. There is mild scarring at the lung bases. There is a nodular liver consistent with cirrhosis. The gallbladder is present. IMPRESSION: No pulmonary embolus or dissection. Cirrhosis. Reviewed, Interpreted and Dictated by Shubham Lara MD Transcribed by Margaret Yang Authenticated and [facility]
[2025-05-13] MEDS: 0.9 % SODIUM CHLORIDE 1000ML 1,000 ML 999 ML IV (12:30)
[2025-05-13] MEDS: METOPROLOL TARTRATE 5MG/5ML VIAL 5 MG IV (12:31)
[2025-05-13 12:32] LABS: Immature Granulocytes % 0.4 %; Nucleated Red Blood Cells % 0 %; White Blood Count 9.6 K/mm3 (4.8-10.8)
[2025-05-13 12:37] LABS: Hematocrit 58.0 % (42.0-52.0); Mean Corpuscular HGB Conc 34.0 g/dL (31.8-35.4); Mean Corpuscular Hemoglobin 32.1 pg (27.0-31.2); Mean Corpuscular Volume 94.6 fl (80-94); Platelet Count 166 K/mm3 (142-424); Red Blood Count 6.13 M/mm3 (4.60-6.20); Red Cell Distribution Width-SD 47.8 fL
[2025-05-13 12:39] LABS: Hemoglobin 19.7 g/dL (14.1-18.0)
--- NOTE | 2025-05-13 13:28 | PC.NURSE ---
lab to beside to draw samples that were hemolyzed.
[2025-05-13 13:52] LABS: Alanine Aminotransferase 69 U/L (12-78); Albumin Level 4.1 g/dl (3.5-5.0); Albumin/Globulin Ratio 1.2 (1.1-1.8); Alkaline Phosphatase 86 U/L (38-126); Anion Gap 10.6 mEq/L (5-15); Aspartate Amino Transferase 49 U/L (17-59); Bilirubin,Total 0.6 mg/dl (0.2-1.3); Blood Urea Nitrogen 18 mg/dl (9-20); Calcium 8.7 mg/dl (8.4-10.2); Carbon Dioxide 22 mmol/L (22.0-30.0); Chloride 104 mmol/L (98-107); Creatinine Clearance Estimated 112 mL/min (50-200); Creatinine,Serum 1.20 mg/dl (0.66-1.25); Estimated Glomerular Filt Rate 63 ml/min (>60); GFR (African American) 77 ML/MIN (>60); Globulin 3.3 g/dL (1.3-3.2); Glucose 147 mg/dl (74-100); Potassium 3.6 mmoL/L (3.5-5.1); Sodium 133 mmol/L (136-145); Total Protein,Serum 7.4 g/dl (6.3-8.2)
[2025-05-13 14:03] LABS: NT Pro Brain Natriuretic Pep. 1430 pg/mL (0-125)
[2025-05-13 14:11] LABS: Troponin I 0.28 ng/ml (0.00-0.034)
[2025-05-13] MEDS: SODIUM CHLORIDE 0.9% 10ML SYR (RAD ONLY) 10 ML IV (14:17)
[2025-05-13] MEDS: IOPAMIDOL-370 (76%);100ML BOTTLE 70 ML IV (14:17)
[2025-05-13] MEDS: 0.9 % SODIUM CHLORIDE 50 ML VIAL IV (14:17)
--- NOTE | 2025-05-13 14:44 | PC.NURSE ---
called Cards office, shruthi will call us back.
--- NOTE | 2025-05-13 14:45 | PC.NURSE ---
Leonidas talking to CARDS
--- NOTE | 2025-05-13 14:52 | PC.NURSE ---
Keegan Pulido at bedside with patient at this time.
--- NOTE | 2025-05-13 15:01 | EXP.CARD.CON ---
History of Present Illness History of Present Illness Consult date: 05/13/25 Consult reason: atrial fibrillation Chief complaint: Palpitations Additional Medical History:: 1. CAD is present FOX to RCA 03/05/2025. FOX to circumflex x 1 and LAD x 2 (10/2024) FOX to RCA and PDA 09/2024 FOX at age 29 to unknown vessel Plavix and Eliquis 2. Hypertension 3. LDL goal is < 55. LDL is 102 (09/2024). On statin 4. HFrEF with improved EF of 60%. Was 35-40 5. PAF is sinus today. A/C with Eliquis, denies bleeding. On amiodarone. 6. Tobacco user. Tobacco cessation recommended. 7. Thyroid mass is being followed by ENT. Had biopsy on 10/13/24. will defer. History of present illness: 54-year-old male with history of A-fib on Eliquis and amiodarone, HFrEF that has recovered with last EF 60%, CAD with history of multivessel stenting (most recent stent in February 2025) presented to the emergency department for palpitations/fast heart rate. Started upon waking this morning. He denies any chest pain, pressure or tightness. He maintains compliance with his Eliquis over the last 30 days. Cardiology asked to see the patient for further evaluation and treatment. [facility] Disclaimer: The information contained in this section may have been updated after the patient was seen, as this information can be updated by other users. Medical History Thyroid mass Tobacco dependence syndrome Prediabetes Anxiety Depression BPH (benign prostatic hyperplasia) HLD (hyperlipidemia) HTN (hypertension) Heart attack COPD (chronic obstructive pulmonary disease) Surgical History Stented coronary artery History of incision and drainage Hx of heart artery stent S/P cardiac catheterization Family History Family/Other Thyroid disorder Mother No problems noted. Grandmother Thyroid disorder Grandfather Thyroid disorder Other No significant family history Social History Smoking Status: Current every day smoker alcohol intake: current current occupational status: other Travel in the last 8 weeks?: None Have you lived/traveled outside US in past 30 days?: No Contact w/someone who lives/traveled outside US past 30 days?: No Exposure to someone with infectious disease in past 14 days?: No Do you have a fever (greater than 100.4 F or 38 C)?: No Have you tested positive for COVID-19?: No Exposed to someone with COVID-19 in past 14 days?: No Do you have a sore throat?: No Do you have a cough?: No Do you have any weakness?: No Do you have any diarrhea?: No Are you experiencing any unusual bleeding?: No Do you have any muscle aches/pain?: No Do you have any abdominal pain?: No Are you experiencing loss of taste or smell?: No Review of Systems Review of Systems Review of systems:: pertinent systems reviewed and negative unless documented below *Cardiovascular Cardiovascular: Reports dyspnea on exertion and Reports irregular heart rhythm *Respiratory Respiratory: Reports dyspnea on exertion Exam Data for Last 24 hours Vital signs and Labs for Last 24 Hours: Temp Pulse Resp BP Pulse Ox O2 Del Method 98.3 F 116 H 15 124/94 H 96 Room Air 05/13/25 11:55 05/13/25 14:00 05/13/25 14:00 05/13/25 14:00 05/13/25 14:00 05/13/25 14:00 Laboratory Results - last 24 hr 05/13/25 12:22: WBC 9.6, RBC 6.13, Hgb 19.7 H, Hct 58.0 H, MCV 94.6 H, MCH 32.1 H, MCHC 34.0, RDW 13.9, Plt Count 166, MPV 10.6 H, Neut % (Auto) 57.7, Lymph % (Auto) 32.7, [place] % (Auto) 7.7, Eos % (Auto) 0.9, Baso % (Auto) 0.6, Neut # (Auto) 5.6, Lymph # (Auto) 3.2, [place] # (Auto) 0.7, Eos # (Auto) 0.1, Baso # (Auto) 0.1 05/13/25 13:30: Sodium 133 L, Potassium 3.6, Chloride 104, Carbon Dioxide 22, Anion Gap 10.6, BUN 18, Creatinine 1.20, Estimated Creat Clear 112, Estimated GFR 63, Est GFR ( Amer) 77, Glucose 147 H, Calcium 8.7, Total Bilirubin 0.6, AST 49, ALT 69, Alkaline Phosphatase 86, Troponin I 0.28 H, NT-Pro-B Natriuret Pep 1430 H, Total Protein 7.4, Albumin 4.1, Globulin 3.3 H, Albumin/Globulin Ratio 1.2 I & O for Last 24 hours: Intake & Output 05/11/25 05/12/25 05/13/25 05/14/25 11:59 11:59 11:59 11:59 Intake Total 1000 / 1000 Balance 1000 / 1000 Weight 245 lb Constitutional Constitutional: no acute distress *Routine Respiratory Exam Respiratory: Present CTA bilaterally; Absent rales or wheezes *Routine Cardiovascular Exam Cardiovascular: Present tachycardia and irregular rhythm; Absent murmur, gallop or rubs *Routine Extremities Exam Extremities: Absent edema *Routine Neurological Exam Neurological: Present alert, oriented X3 and CN II-XII intact Meds Home Medications and Allergies Home Medications ?Medication ?Instructions ?Recorded ?Confirmed ?Type fluoxetine 20 mg capsule 20 mg PO DAILY 09/18/24 05/13/25 History tamsulosin 0.4 mg capsule 0.4 mg PO HS 09/18/24 05/13/25 History trazodone 100 mg tablet 100 mg PO HS 09/18/24 05/13/25 History albuterol sulfate 90 mcg/actuation 2 puff inhalation Q4HP PRN 09/28/24 05/13/25 History aerosol inhaler (Ventolin HFA) Shortness Of Breath apixaban 5 mg tablet (Eliquis) 5 mg PO BID #180 tabs 10/19/24 05/13/25 Rx atorvastatin 40 mg tablet 40 mg PO HS #90 tabs 10/19/24 05/13/25 Rx sacubitril 24 mg-valsartan 26 mg 1 tab PO BID #180 tabs 10/19/24 05/13/25 Rx tablet (Entresto) ibuprofen 800 mg tablet 800 mg PO QIDP PRN Mild Pain 11/25/24 05/13/25 History (Scale Score 1-4) dulaglutide 0.75 mg/0.5 mL 0.75 mg SQ WEEKLY 03/05/25 05/13/25 History subcutaneous pen injector (Trulicity) amiodarone 200 mg tablet 400 mg (2 x 200 mg) PO BID 30 days 03/07/25 05/13/25 Rx #120 tabs aspirin 81 mg tablet 81 mg PO DAILY #30 tabs 03/07/25 05/13/25 Rx metoprolol succinate 50 mg 50 mg PO BID 30 days #60 tabs 03/07/25 05/13/25 Rx tablet,extended release 24 hr (Toprol XL) clopidogrel 75 mg tablet (Plavix) 75 mg PO DAILY 90 days #90 tabs 03/11/25 05/13/25 Rx dapagliflozin propanediol 10 mg 10 mg PO DAILY 05/13/25 05/13/25 History tablet (Farxiga) lisinopril 10 mg tablet 10 mg PO DAILY 05/13/25 05/13/25 History New Prescriptions to Start Prescriptions: Allergies Allergy/AdvReac Type Severity Reaction Status Date / Time No Known Allergies Allergy Verified 03/11/25 14:46 Assessment and Plan *Assessment and plan (1) Atrial flutter with rapid ventricular response: Problem Comment: Present on admission Status: Acute Category: Medical Code(s): I48.92 - Unspecified atrial flutter (2) Elevated troponin: Status: Acute Category: Medical Code(s): R79.89 - Other specified abnormal findings of blood chemistry (3) Tobacco dependence syndrome: Status: Acute Category: Medical Code(s): F17.200 - Nicotine dependence, unspecified, uncomplicated (4) HTN (hypertension): Status: Acute Qualifiers: Hypertension type: unspecified Qualified Code(s): I10 - Essential (primary) hypertension Category: Medical Code(s): I10 - Essential (primary) hypertension (5) HLD (hyperlipidemia): Status: Acute Qualifiers: Hyperlipidemia type: other hyperlipidemia Qualified Code(s): E78.49 - Other hyperlipidemia Category: Medical Code(s): E78.5 - Hyperlipidemia, unspecified (6) Enlarged thyroid: Status: Acute Category: Medical Code(s): E04.9 - Nontoxic goiter, unspecified (7) Coronary artery disease: Status: Acute Qualifiers: Associated angina: without angina Coronary Disease-Associated Artery/Lesion type: [place] artery [place] vs. transplanted heart: [place] heart Qualified Code(s): I25.10 - Atherosclerotic heart disease of [place] coronary artery without angina pectoris Category: Medical Code(s): I25.10 - Atherosclerotic heart disease of [place] coronary artery without angina pectoris Plan 1. Atrial flutter with RVR -CTA of the chest pending to rule out PE -Continue Eliquis 5 mg twice daily -Increase metoprolol succinate to 100 mg twice daily -Continue amiodarone but increase back to 400 mg twice daily and give IV loading tonight -If patient fails to convert back to sinus rhythm tomorrow then we will proceed with cardioversion -Check thyroid function and LFTs 2. Elevated troponin in the setting of A-fib with RVR and known coronary artery disease -Likely demand ischemia -Continue Plavix 3. History of HFrEF that has recovered with recent EF 60% -Continue Farxiga, metoprolol, Entresto -Elevated BNP at 1430 4. CAD -Most recent stenting in February 2025 5. Diabetes mellitus -Continue Farxiga and Trulicity -Check hemoglobin A1c 6. Known thyroid mass with plan for further evaluation at ENT appointment next week 7. Tobacco use, cessation recommended -Erythrocytosis with hemoglobin 19.7 -Recommend phlebotomy Admit for IV amiodarone and to increase metoprolol succinate to 100 mg twice daily If patient does not convert back to sinus rhythm overnight then we will proceed with cardioversion tomorrow Will not repeat echo at this time due to A. flutter Recommend phlebotomy of 500 mL due to erythrocytosis
--- NOTE | 2025-05-13 15:11 | PC.NURSE ---
Lab notified of need for second trop to be drawn due to patient being a stick
--- NOTE | 2025-05-13 15:41 | PC.NURSE ---
warehouse stocker notified of need for admission. Pt assigned room [id number]
--- NOTE | 2025-05-13 15:45 | PC.NURSE ---
patient placed in hospital gown at this time and all personal belonging placed in belongings bag. patient sticker applied to bag.
--- NOTE | 2025-05-13 15:53 | PC.NURSE ---
report called to Nguyen SHARPE at this time
[2025-05-13 16:18] LABS: Troponin I 0.30 ng/ml (0.00-0.034)
[2025-05-13] MEDS: AMIODARONE HCL 150 MG in DEXTROSE 5 % IN WATER 100 ML 618 MG IV (17:05)
--- NOTE | 2025-05-13 17:16 | EXP.HP ---
History of Present Illness *Admission Date: 05/13/25 *Reason for visit:: Palpitations *History of present illness: Joel Lemons is a 54-year-old male with a medical history significant for paroxysmal A-fib on Eliquis, CAD with stents, hypertension, HFimpEF, current tobacco smoker who presents with palpitations since this morning. Patient states he woke up with his heart racing at 530 this morning. He states he waited into the afternoon but without alleviation of symptoms. Denies chest pain, shortness of breath. States he has been taking all his medications, but does endorse that he continues to smoke. States he has been eating and drinking normally. Workup in the ED significant for hemoglobin 19.7, troponin 0.28-0.30, BNP 1430, CTA chest unremarkable other than chronic cirrhosis. Patient was in atrial tachycardia with heart rate in the 1 teens upon arrival. Cardiology was consulted who recommended loading with IV amiodarone, increase amiodarone to 4 mg twice daily, increase metoprolol succinate to 100 mg twice daily and possible cardioversion in the morning. Given these findings, ED provider discussed case with me and excepted patient for further evaluation and management. [facility] Disclaimer: The information contained in this section may have been updated after the patient was seen, as this information can be updated by other users. Medical History Thyroid mass Tobacco dependence syndrome Prediabetes Anxiety Depression BPH (benign prostatic hyperplasia) HLD (hyperlipidemia) HTN (hypertension) Heart attack COPD (chronic obstructive pulmonary disease) Surgical History Stented coronary artery History of incision and drainage Hx of heart artery stent S/P cardiac catheterization Family History Family/Other Thyroid disorder Mother No problems noted. Grandmother Thyroid disorder Grandfather Thyroid disorder Other No significant family history Social History Smoking Status: Current every day smoker alcohol intake: current current occupational status: other Travel in the last 8 weeks?: None Have you lived/traveled outside US in past 30 days?: No Contact w/someone who lives/traveled outside US past 30 days?: No Exposure to someone with infectious disease in past 14 days?: No Do you have a fever (greater than 100.4 F or 38 C)?: No Have you tested positive for COVID-19?: No Exposed to someone with COVID-19 in past 14 days?: No Do you have a sore throat?: No Do you have a cough?: No Do you have any weakness?: No Do you have any diarrhea?: No Are you experiencing any unusual bleeding?: No Do you have any muscle aches/pain?: No Do you have any abdominal pain?: No Are you experiencing loss of taste or smell?: No Other Medical History Have you received the Flu Vaccine for this season: No Have you received the Pneumonia Vaccine: No Meds Home Medications and Allergies Home Medications ?Medication ?Instructions ?Recorded ?Confirmed ?Type fluoxetine 20 mg capsule 20 mg PO DAILY 09/18/24 05/13/25 History tamsulosin 0.4 mg capsule 0.4 mg PO HS 09/18/24 05/13/25 History trazodone 100 mg tablet 100 mg PO HS 09/18/24 05/13/25 History albuterol sulfate 90 mcg/actuation 2 puff inhalation Q4HP PRN 09/28/24 05/13/25 History aerosol inhaler (Ventolin HFA) Shortness Of Breath apixaban 5 mg tablet (Eliquis) 5 mg PO BID #180 tabs 10/19/24 05/13/25 Rx atorvastatin 40 mg tablet 40 mg PO HS #90 tabs 10/19/24 05/13/25 Rx dapagliflozin propanediol 10 mg 10 mg PO DAILY #90 tabs 10/19/24 05/13/25 Rx tablet (Farxiga) sacubitril 24 mg-valsartan 26 mg 1 tab PO BID #180 tabs 10/19/24 05/13/25 Rx tablet (Entresto) ibuprofen 800 mg tablet 800 mg PO QIDP PRN Mild Pain 11/25/24 05/13/25 History (Scale Score 1-4) dulaglutide 0.75 mg/0.5 mL 0.75 mg SQ WEEKLY 03/05/25 05/13/25 History subcutaneous pen injector (Trulicity) amiodarone 200 mg tablet 400 mg (2 x 200 mg) PO BID 30 days 03/07/25 05/13/25 Rx #120 tabs aspirin 81 mg tablet 81 mg PO DAILY #30 tabs 03/07/25 05/13/25 Rx metoprolol succinate 50 mg 50 mg PO BID 30 days #60 tabs 03/07/25 05/13/25 Rx tablet,extended release 24 hr (Toprol XL) clopidogrel 75 mg tablet (Plavix) 75 mg PO DAILY 90 days #90 tabs 03/11/25 05/13/25 Rx dapagliflozin propanediol 10 mg 10 mg PO DAILY 05/13/25 05/13/25 History tablet (Farxiga) lisinopril 10 mg tablet 10 mg PO DAILY blood pressure 05/13/25 05/13/25 History New Prescriptions to Start Prescriptions: Allergies Allergy/AdvReac Type Severity Reaction Status Date / Time No Known Allergies Allergy Verified 03/11/25 14:46 Exam Data for Last 24 hours Vital signs and Labs for Last 24 Hours: Temp Pulse Resp BP Pulse Ox O2 Del Method 98.2 F 110 H 20 137/114 H 96 Room Air 05/13/25 16:11 05/13/25 16:25 05/13/25 16:11 05/13/25 16:11 05/13/25 16:18 05/13/25 16:18 Laboratory Results - last 24 hr 05/13/25 12:22: WBC 9.6, RBC 6.13, Hgb 19.7 H, Hct 58.0 H, MCV 94.6 H, MCH 32.1 H, MCHC 34.0, RDW 13.9, Plt Count 166, MPV 10.6 H, Neut % (Auto) 57.7, Lymph % (Auto) 32.7, [place] % (Auto) 7.7, Eos % (Auto) 0.9, Baso % (Auto) 0.6, Neut # (Auto) 5.6, Lymph # (Auto) 3.2, [place] # (Auto) 0.7, Eos # (Auto) 0.1, Baso # (Auto) 0.1 05/13/25 13:30: Sodium 133 L, Potassium 3.6, Chloride 104, Carbon Dioxide 22, Anion Gap 10.6, BUN 18, Creatinine 1.20, Estimated Creat Clear 112, Estimated GFR 63, Est GFR ( Amer) 77, Glucose 147 H, Calcium 8.7, Total Bilirubin 0.6, AST 49, ALT 69, Alkaline Phosphatase 86, Troponin I 0.28 H, NT-Pro-B Natriuret Pep 1430 H, Total Protein 7.4, Albumin 4.1, Globulin 3.3 H, Albumin/Globulin Ratio 1.2 05/13/25 15:22: Troponin I 0.30 H I & O for Last 24 hours: Intake & Output 05/10/25 05/11/25 05/12/25 05/13/25 23:59 23:59 23:59 23:59 Intake Total 1000 / 1000 Balance 1000 / 1000 Weight 114.419 kg Constitutional Constitutional: no acute distress, obese and chronically ill appearing *Routine HEENT Exam Head: Present normocephalic Eye: Present EOMI and PERRL ENT: Present mucous membranes moist *Routine Neck Exam Neck: Present supple; Absent lymphadenopathy *Routine Respiratory Exam Respiratory: Present CTA bilaterally *Routine Cardiovascular Exam Cardiovascular: Present RRR *Routine Abdominal Exam Abdominal: Present soft and normoactive bowel sounds; Absent tenderness *Routine Rectal Exam Rectal:: deferred *Routine Genitalia Exam Genitalia:: deferred *Routine Extremities Exam Extremities: Absent cyanosis, clubbing or edema *Routine Skin Exam Skin: Present warm; Absent rash *Routine Neurological Exam Neurological: Present alert and oriented X3 Assessment and Plan *Assessment and plan (1) Atrial tachycardia: Status: Acute Category: Medical Code(s): I47.19 - Other supraventricular tachycardia Plan Joel Lemons is a 54-year-old male with a medical history significant for paroxysmal A-fib on Eliquis, CAD with stents, hypertension, HFimpEF, current tobacco smoker who presents with palpitations since this morning. Patient states he woke up with his heart racing at 530 this morning. He states he waited into the afternoon but without alleviation of symptoms. Denies chest pain, shortness of breath. States he has been taking all his medications, but does endorse that he continues to smoke. States he has been eating and drinking normally. Workup in the ED significant for hemoglobin 19.7, troponin 0.28-0.30, BNP 1430, CTA chest unremarkable other than chronic cirrhosis. Patient was in atrial tachycardia with heart rate in the 1 teens upon arrival. Cardiology was consulted who recommended loading with IV amiodarone, increase amiodarone to 4 mg twice daily, increase metoprolol succinate to 100 mg twice daily and possible cardioversion in the morning. Given these findings, ED provider discussed case with me and excepted patient for further evaluation and management. #Atrial tachycardia #History of A-fib #NSTEMI, likely type II #CAD with stents ? Patient presented with palpitations since 5:30 AM this morning. Has been adherent to his medications, does not endorse dehydration. ? Heart rate in the 110s on arrival. Troponins 0.28-0.30. CBC does seem home hemoconcentrated, multiple cell lines up from baseline. ED gave fluids, follow-up morning CBC. ? Cardiology was consulted who recommended loading with IV amiodarone, increase amiodarone to 4 mg twice daily, increase metoprolol succinate to 100 mg twice daily and possible cardioversion in the morning if refractory. ? Started IV amiodarone bolus and drip. Increased amiodarone to 400 mg twice daily, metoprolol succinate 100 mg twice daily. ? Started therapeutic Lovenox for now. Hold home Eliquis. ? ED gave 1 L LR bolus, follow-up CBC in the morning. Will avoid further IV fluids in the setting of HFpEF. ? Continue home aspirin 81 mg, Plavix 75 mg, atorvastatin 40 mg. #HFimppEF #Hypertension ? Continue home medications once reconciled. Currently seems euvolemic. #Current tobacco smoker ? Encouraged cessation. Nicotine patch daily. #Anxiety/depression ? Continue home medications once reconciled. Full code DVT prophylaxis: Therapeutic Lovenox as above
[2025-05-13] MEDS: AMIODARONE HCL 900 MG in DEXTROSE 5 % IN WATER 500 ML 33 MG IV (17:23)
[2025-05-13 19:25] LABS: Troponin I 0.37 ng/ml (0.00-0.034)
--- NOTE | 2025-05-13 20:23 | PC.NURSE ---
Keegan Pulido called and discussed pts home med list with me. He wanted home eliquis started tonight. Pharmacy consult faxed.
[2025-05-13] MEDS: AMIODARONE 200MG TABLET 400 MG PO (21:07)
[2025-05-13] MEDS: ATORVASTATIN 40MG TABLET 40 MG PO (21:08)
[2025-05-13] MEDS: NICOTINE 21MG/24HR PATCH 21 MG TD (21:08)
[2025-05-13] MEDS: TAMSULOSIN 0.4MG CAPSULE 0.4 MG PO (21:28)
[2025-05-13] MEDS: TRAZODONE 50MG TABLET 100 MG PO (21:28)
[2025-05-13] MEDS: METOPROLOL SUCCINATE XL 100MG TABLET 100 MG PO (21:28)
[2025-05-13] MEDS: APIXABAN 5MG TABLET 5 MG PO (22:05)
--- NOTE | 2025-05-13 23:00 | PC.NURSE ---
pharmacy called asking about eliquis and lovenox. per randall d/c lovenox due to pt already being on eliquis
[2025-05-14] VITALS (30 sets, daily range): BP systolic 96–147; BP diastolic 67–105; PULSE 54–109; RESP 12–22; TEMP 36.6–36.8; O2SAT 94–98; BMI 36.0
--- NOTE | 2025-05-14 01:03 | ECG_ITS ---
APPROVED REPORT Exam: Resting ECG HR:59 bpm ECG Measurements Heart Rate 59 AXES [place] 233 P 67 QRSd 119 QRS -82 QT 460 T 64 QTc 460 Conclusion SINUS BRADYCARDIA WITH FIRST DEGREE AV BLOCK LAD with late R wave progression ABNORMAL ECG UNCONFIRMED REPORT Electronically signed by : Marvin Celaya MD 05/15/2025 08:42:21
[2025-05-14 06:08] LABS: Albumin Level 3.6 g/dl (3.5-5.0); Chloride 104 mmol/L (98-107); Hematocrit 52.9 % (42.0-52.0); Hemoglobin 17.9 g/dL (14.1-18.0); Immature Granulocytes % 0.4 %; Mean Corpuscular HGB Conc 33.8 g/dL (31.8-35.4); Mean Corpuscular Hemoglobin 32.2 pg (27.0-31.2); Mean Corpuscular Volume 95.1 fl (80-94); Nucleated Red Blood Cells % 0 %; Platelet Count 142 K/mm3 (142-424); Potassium 3.9 mmoL/L (3.5-5.1); Red Blood Count 5.56 M/mm3 (4.60-6.20); Red Cell Distribution Width-SD 48.7 fL; Sodium 140 mmol/L (136-145); White Blood Count 9.8 K/mm3 (4.8-10.8)
[2025-05-14 06:11] LABS: Alanine Aminotransferase 54 U/L (12-78); Albumin/Globulin Ratio 1.1 (1.1-1.8); Alkaline Phosphatase 72 U/L (38-126); Anion Gap 13.9 mEq/L (5-15); Aspartate Amino Transferase 38 U/L (17-59); Bilirubin,Total 0.7 mg/dl (0.2-1.3); Blood Urea Nitrogen 19 mg/dl (9-20); Calcium 8.0 mg/dl (8.4-10.2); Carbon Dioxide 26 mmol/L (22.0-30.0); Cholesterol 102 mg/dl (140-200); Creatinine Clearance Estimated 106 mL/min (50-200); Creatinine,Serum 1.30 mg/dl (0.66-1.25); Estimated Glomerular Filt Rate 58 ml/min (>60); GFR (African American) 70 ML/MIN (>60); Globulin 3.2 g/dL (1.3-3.2); Glucose 116 mg/dl (74-100); Magnesium 2.1 mg/dl (1.6-2.3); Total Protein,Serum 6.8 g/dl (6.3-8.2); Triglycerides 144 mg/dl (30-150)
[2025-05-14 06:12] LABS: HDL Cholesterol 24 mg/dl (40-60)
--- NOTE | 2025-05-14 07:55 | HMH.PHAINT1 ---
Pharmacy Intervention Comments: MEDICATION RECONCILIATION COMPLETED ON PATIENT USING EXTERNAL FILL HISTORY FROM PHARMACY. -[facility]OW[facility], [facility]
[2025-05-14] MEDS: APIXABAN 5MG TABLET 5 MG PO (09:10)
[2025-05-14] MEDS: METOPROLOL SUCCINATE XL 100MG TABLET 100 MG PO (09:10)
[2025-05-14] MEDS: CLOPIDOGREL 75MG TAB 75 MG PO (09:10)
[2025-05-14] MEDS: AMIODARONE 200MG TABLET 400 MG PO (09:10)
[2025-05-14] MEDS: NICOTINE 21MG/24HR PATCH 21 MG TD (09:15)
--- NOTE | 2025-05-14 09:38 | EXP.CARD.PN ---
Subjective Subjective Date: 05/14/25 Time: 09:39 Principal diagnosis: Atrial flutter with RVR Interval history: 54-year-old white male in bed in no acute distress. Patient did convert back to sinus rhythm around 2 AM this morning. He denies any chest pain, pressure or tightness. He continues on IV amiodarone loading. Exam Data for Last 24 hours Vital signs and Labs for Last 24 Hours: Temp Pulse Resp BP Pulse Ox O2 Del Method 97.8 F 61 20 135/96 H 98 Room Air 05/14/25 08:02 05/14/25 08:02 05/14/25 08:02 05/14/25 08:02 05/14/25 08:02 05/14/25 08:02 Laboratory Results - last 24 hr 05/13/25 12:22: WBC 9.6, RBC 6.13, Hgb 19.7 H, Hct 58.0 H, MCV 94.6 H, MCH 32.1 H, MCHC 34.0, RDW 13.9, Plt Count 166, MPV 10.6 H, Neut % (Auto) 57.7, Lymph % (Auto) 32.7, [place] % (Auto) 7.7, Eos % (Auto) 0.9, Baso % (Auto) 0.6, Neut # (Auto) 5.6, Lymph # (Auto) 3.2, [place] # (Auto) 0.7, Eos # (Auto) 0.1, Baso # (Auto) 0.1 05/13/25 13:30: Sodium 133 L, Potassium 3.6, Chloride 104, Carbon Dioxide 22, Anion Gap 10.6, BUN 18, Creatinine 1.20, Estimated Creat Clear 112, Estimated GFR 63, Est GFR ( Amer) 77, Glucose 147 H, Calcium 8.7, Total Bilirubin 0.6, AST 49, ALT 69, Alkaline Phosphatase 86, Troponin I 0.28 H, NT-Pro-B Natriuret Pep 1430 H, Total Protein 7.4, Albumin 4.1, Globulin 3.3 H, Albumin/Globulin Ratio 1.2 05/13/25 15:22: Troponin I 0.30 H 05/13/25 18:31: Troponin I 0.37 H 05/14/25 04:31: WBC 9.8, RBC 5.56, Hgb 17.9, Hct 52.9 H, MCV 95.1 H, MCH 32.2 H, MCHC 33.8, RDW 13.8, Plt Count 142, MPV 11.0 H, Neut % (Auto) 66.0, Lymph % (Auto) 25.6, [place] % (Auto) 6.4, Eos % (Auto) 1.0, Baso % (Auto) 0.6, Neut # (Auto) 6.5, Lymph # (Auto) 2.5, [place] # (Auto) 0.6, Eos # (Auto) 0.1, Baso # (Auto) 0.1, Sodium 140, Potassium 3.9, Chloride 104, Carbon Dioxide 26, Anion Gap 13.9, BUN 19, Creatinine 1.30 H, Estimated Creat Clear 106, Estimated GFR 58 L, Est GFR ( Amer) 70, Glucose 116 H D, Calcium 8.0 L, Magnesium 2.1, Total Bilirubin 0.7, AST 38, ALT 54, Alkaline Phosphatase 72, Total Protein 6.8, Albumin 3.6 D, Globulin 3.2, Albumin/Globulin Ratio 1.1, Triglycerides 144, Cholesterol 102 L, LDL Cholesterol Direct 65.23 L, VLDL Cholesterol 29, HDL Cholesterol 24 L, Cholesterol/HDL Ratio 4.3 H I & O for Last 24 hours: Intake & Output 05/11/25 05/12/25 05/13/25 05/14/25 11:59 11:59 11:59 11:59 Intake Total 1639.25 / 1639.25 Output Total 1350 / 1350 Balance 289.25 / 289.25 Weight 245 lb 251 lb 9.6 oz Constitutional Constitutional: no acute distress *Routine Respiratory Exam Respiratory: Present CTA bilaterally *Routine Cardiovascular Exam Cardiovascular: Present RRR; Absent murmur, gallop or rubs *Routine Extremities Exam Extremities: Absent edema Progress Note: A&P Assessment and plan (1) Atrial flutter with rapid ventricular response: Problem details: Present on admission Status: Acute (2) Elevated troponin: Status: Acute (3) Tobacco dependence syndrome: Status: Acute (4) HTN (hypertension): Status: Acute (5) HLD (hyperlipidemia): Status: Acute (6) Enlarged thyroid: Status: Acute (7) Coronary artery disease: Status: Acute Assessment and Plan Assessment and Plan for All Diagnoses:: 1. Atrial flutter with RVR -CTA of the chest negative for PE -Continue Eliquis 5 mg twice daily -Increase metoprolol succinate to 100 mg twice daily -Continue amiodarone but increase back to 400 mg twice daily and give IV loading tonight -Check thyroid function and LFTs 2. Elevated troponin in the setting of A-fib with RVR and known coronary artery disease -Likely demand ischemia -Continue Plavix 3. History of HFrEF that has recovered with recent EF 60% -Continue Farxiga, metoprolol, Entresto -Elevated BNP at 1430 Likely due to decreased cardiac output during A. flutter 4. CAD -Most recent stenting in February 2025 -continue plavix -stop aspirin 5. Diabetes mellitus -Continue Farxiga and Trulicity -Hgb A1C pending 6. Known thyroid mass with plan for further evaluation at ENT appointment next week -repeat thyroid panel pending 7. Tobacco use, cessation recommended -Erythrocytosis with hemoglobin 19.7, improved to 17.9 No plans for cardioversion Patient can be discharged home later this morning He does not need to complete the IV amiodarone loading since he is already on oral amiodarone Home medication recommendations: Amiodarone 400 mg twice daily Apixaban 5 mg twice daily Atorvastatin 40 mg daily Plavix 75 mg daily Farxiga 10 mg daily Lisinopril 10 mg daily Metoprolol succinate 100 mg twice daily Lisinopril 10 mg daily (no longer on entresto) Follow-up in our office in 2 weeks.
[2025-05-14 10:22] LABS: Triiodothryronine (T3) Uptake 41 % (23.5-40.5)
[2025-05-14 10:23] LABS: Free Thyroxine Index 3.6 ug/dL (5.93-13.13); T4 (Thyroxine) 8.8 ug/dl (5.53-11.0)
[2025-05-14 10:36] LABS: Thyroid Stimulating Hormone 0.95 uIU/mL (0.465-4.68)
[2025-05-14 10:58] LABS: Hemoglobin A1C 6.2 % (4.0-6.0)
--- NOTE | 2025-05-14 11:05 | EXP.DC.SUM ---
General Admission date:: 05/13/25 HPI HPI HPI: Joel Lemons is a 54-year-old male with a medical history significant for paroxysmal A-fib on Eliquis, CAD with stents, hypertension, HFimpEF, current tobacco smoker who presents with palpitations since this morning. Patient states he woke up with his heart racing at 530 this morning. He states he waited into the afternoon but without alleviation of symptoms. Denies chest pain, shortness of breath. States he has been taking all his medications, but does endorse that he continues to smoke. States he has been eating and drinking normally. Workup in the ED significant for hemoglobin 19.7, troponin 0.28-0.30, BNP 1430, CTA chest unremarkable other than chronic cirrhosis. Patient was in atrial tachycardia with heart rate in the 1 teens upon arrival. Cardiology was consulted who recommended loading with IV amiodarone, increase amiodarone to 4 mg twice daily, increase metoprolol succinate to 100 mg twice daily and possible cardioversion in the morning. Given these findings, ED provider discussed case with me and excepted patient for further evaluation and management. Hospital Course Hospital Course Hospital Course: Joel Lemons is a 54-year-old male with a medical history significant for paroxysmal A-fib on Eliquis, CAD with stents, hypertension, HFimpEF, current tobacco smoker who presents with palpitations since this morning. Patient states he woke up with his heart racing at 530 this morning. He states he waited into the afternoon but without alleviation of symptoms. Denies chest pain, shortness of breath. States he has been taking all his medications, but does endorse that he continues to smoke. States he has been eating and drinking normally. Workup in the ED significant for hemoglobin 19.7, troponin 0.28-0.30, BNP 1430, CTA chest unremarkable other than chronic cirrhosis. Patient was in atrial tachycardia with heart rate in the 1 teens upon arrival. Cardiology was consulted who recommended loading with IV amiodarone, increase amiodarone to 4 mg twice daily, increase metoprolol succinate to 100 mg twice daily and possible cardioversion in the morning. Given these findings, ED provider discussed case with me and excepted patient for further evaluation and management. #Atrial tachycardia #History of A-fib #NSTEMI, likely type II #CAD with stents ? Patient presented with palpitations since 5:30 AM on day of admission. Has been adherent to his medications. ? Heart rate in the 110s on arrival with atrial tach on EKG. Troponins 0.28-0.30, though had a recent LHC on 03/05/2025. ? CBC was initially hemoconcentrated, multiple cell lines up from baseline. Improved with IV fluid resuscitation. ? Cardiology was consulted who recommended loading with IV amiodarone gtt., increase amiodarone to 400 mg twice daily, increase metoprolol succinate to 100 mg twice daily. ? Patient converted to NSR overnight. Heart rate currently in the 60s. Patient asymptomatic. ? Cardiology consulted, continue amiodarone 400 mg twice daily, increase metoprolol succinate to 100 mg twice daily. Continue home Eliquis 5 mg twice daily. ? Continue home aspirin 81 mg, Plavix 75 mg, atorvastatin 40 mg. ? Follow-up with cardiology within 1 week. #HFimppEF #Hypertension ? Continue home Farxiga 10 mg, lisinopril 10 mg, metoprolol. #Current tobacco smoker ? Encouraged cessation. Nicotine patch daily. #Anxiety/depression ?Continue home fluoxetine 20 mg daily, trazodone 100 mg nightly. Full code DVT prophylaxis: Therapeutic Lovenox as above Exam Data for Last 24 hours Vital signs and Labs for Last 24 Hours: Temp Pulse Resp BP Pulse Ox O2 Del Method 97.8 F 62 18 136/99 H 96 Room Air 05/14/25 08:02 05/14/25 10:45 05/14/25 10:45 05/14/25 10:00 05/14/25 10:45 05/14/25 09:00 Laboratory Results - last 24 hr 05/13/25 12:22: WBC 9.6, RBC 6.13, Hgb 19.7 H, Hct 58.0 H, MCV 94.6 H, MCH 32.1 H, MCHC 34.0, RDW 13.9, Plt Count 166, MPV 10.6 H, Neut % (Auto) 57.7, Lymph % (Auto) 32.7, [place] % (Auto) 7.7, Eos % (Auto) 0.9, Baso % (Auto) 0.6, Neut # (Auto) 5.6, Lymph # (Auto) 3.2, [place] # (Auto) 0.7, Eos # (Auto) 0.1, Baso # (Auto) 0.1 05/13/25 13:30: Sodium 133 L, Potassium 3.6, Chloride 104, Carbon Dioxide 22, Anion Gap 10.6, BUN 18, Creatinine 1.20, Estimated Creat Clear 112, Estimated GFR 63, Est GFR ( Amer) 77, Glucose 147 H, Calcium 8.7, Total Bilirubin 0.6, AST 49, ALT 69, Alkaline Phosphatase 86, Troponin I 0.28 H, NT-Pro-B Natriuret Pep 1430 H, Total Protein 7.4, Albumin 4.1, Globulin 3.3 H, Albumin/Globulin Ratio 1.2 05/13/25 15:22: Troponin I 0.30 H 05/13/25 18:31: Troponin I 0.37 H 05/14/25 04:31: WBC 9.8, RBC 5.56, Hgb 17.9, Hct 52.9 H, MCV 95.1 H, MCH 32.2 H, MCHC 33.8, RDW 13.8, Plt Count 142, MPV 11.0 H, Neut % (Auto) 66.0, Lymph % (Auto) 25.6, [place] % (Auto) 6.4, Eos % (Auto) 1.0, Baso % (Auto) 0.6, Neut # (Auto) 6.5, Lymph # (Auto) 2.5, [place] # (Auto) 0.6, Eos # (Auto) 0.1, Baso # (Auto) 0.1, Sodium 140, Potassium 3.9, Chloride 104, Carbon Dioxide 26, Anion Gap 13.9, BUN 19, Creatinine 1.30 H, Estimated Creat Clear 106, Estimated GFR 58 L, Est GFR ( Amer) 70, Glucose 116 H D, Hemoglobin A1c 6.2 H, Calcium 8.0 L, Magnesium 2.1, Total Bilirubin 0.7, AST 38, ALT 54, Alkaline Phosphatase 72, Total Protein 6.8, Albumin 3.6 D, Globulin 3.2, Albumin/Globulin Ratio 1.1, Triglycerides 144, Cholesterol 102 L, LDL Cholesterol Direct 65.23 L, VLDL Cholesterol 29, HDL Cholesterol 24 L, Cholesterol/HDL Ratio 4.3 H, TSH 0.95, Free T4 Index 3.6 L, Thyroxine (T4) 8.8, T3 Uptake 41 H I & O for Last 24 hours: Intake & Output 05/11/25 05/12/25 05/13/25 05/14/25 23:59 23:59 23:59 23:59 Intake Total 1429.25 / 1429.25 210 / 210 Output Total 1050 / 1050 475 / 475 Balance 379.25 / 379.25 -265 / -265 Weight 114.419 kg 114.124 kg Constitutional Constitutional: no acute distress *Routine Respiratory Exam Respiratory: Present CTA bilaterally *Routine Cardiovascular Exam Cardiovascular: Present RRR; Absent murmur, gallop or rubs *Routine Extremities Exam Extremities: Absent edema Results Data Completed and Pending Labs on day of discharge: Labs from last 24 hours 05/14/25 05/13/25 05/13/25 04:31 18:31 15:22 WBC 9.8 RBC 5.56 Hgb 17.9 Hct 52.9 H MCV 95.1 H MCH 32.2 H MCHC 33.8 RDW 13.8 Plt Count 142 MPV 11.0 H Neut % (Auto) 66.0 Lymph % (Auto) 25.6 Knox % (Auto) 6.4 Eos % (Auto) 1.0 Baso % (Auto) 0.6 Neut # (Auto) 6.5 Lymph # (Auto) 2.5 Knox # (Auto) 0.6 Eos # (Auto) 0.1 Baso # (Auto) 0.1 Sodium 140 Potassium 3.9 Chloride 104 Carbon Dioxide 26 Anion Gap 13.9 BUN 19 Creatinine 1.30 H Estimated Creat Clear 106 Estimated GFR 58 L Est GFR ( Amer) 70 Glucose 116 H D Hemoglobin A1c 6.2 H Calcium 8.0 L Magnesium 2.1 Total Bilirubin 0.7 AST 38 ALT 54 Alkaline Phosphatase 72 Troponin I 0.37 H 0.30 H NT-Pro-B Natriuret Pep Total Protein 6.8 Albumin 3.6 D Globulin 3.2 Albumin/Globulin Ratio 1.1 Triglycerides 144 Cholesterol 102 L LDL Cholesterol Direct 65.23 L VLDL Cholesterol 29 HDL Cholesterol 24 L Cholesterol/HDL Ratio 4.3 H TSH 0.95 Free T4 Index 3.6 L Thyroxine (T4) 8.8 T3 Uptake 41 H 05/13/25 05/13/25 13:30 12:22 WBC 9.6 RBC 6.13 Hgb 19.7 H Hct 58.0 H MCV 94.6 H MCH 32.1 H MCHC 34.0 RDW 13.9 Plt Count 166 MPV 10.6 H Neut % (Auto) 57.7 Lymph % (Auto) 32.7 Knox % (Auto) 7.7 Eos % (Auto) 0.9 Baso % (Auto) 0.6 Neut # (Auto) 5.6 Lymph # (Auto) 3.2 [place] # (Auto) 0.7 Eos # (Auto) 0.1 Baso # (Auto) 0.1 Sodium 133 L Potassium 3.6 Chloride 104 Carbon Dioxide 22 Anion Gap 10.6 BUN 18 Creatinine 1.20 Estimated Creat Clear 112 Estimated GFR 63 Est GFR ( Amer) 77 Glucose 147 H Hemoglobin A1c Calcium 8.7 Magnesium Total Bilirubin 0.6 AST 49 ALT 69 Alkaline Phosphatase 86 Troponin I 0.28 H NT-Pro-B Natriuret Pep 1430 H Total Protein 7.4 Albumin 4.1 Globulin 3.3 H Albumin/Globulin Ratio 1.2 Triglycerides Cholesterol LDL Cholesterol Direct VLDL Cholesterol HDL Cholesterol Cholesterol/HDL Ratio TSH Free T4 Index Thyroxine (T4) T3 Uptake DS: Diagnosis Discharge Diagnosis (1) Atrial flutter with rapid ventricular response: Status: Acute Code(s): I48.92 - Unspecified atrial flutter Problem details: Present on admission (2) Elevated troponin: Status: Acute Code(s): R79.89 - Other specified abnormal findings of blood chemistry (3) Tobacco dependence syndrome: Status: Acute Code(s): F17.200 - Nicotine dependence, unspecified, uncomplicated (4) HTN (hypertension): Status: Acute Code(s): I10 - Essential (primary) hypertension Qualifiers: Hypertension type: unspecified Qualified Code(s): I10 - Essential (primary) hypertension (5) HLD (hyperlipidemia): Status: Acute Code(s): E78.5 - Hyperlipidemia, unspecified Qualifiers: Hyperlipidemia type: other hyperlipidemia Qualified Code(s): E78.49 - Other hyperlipidemia (6) Enlarged thyroid: Status: Acute Code(s): E04.9 - Nontoxic goiter, unspecified (7) Coronary artery disease: Status: Acute Code(s): I25.10 - Atherosclerotic heart disease of [place] coronary artery without angina pectoris Qualifiers: Associated angina: without angina Coronary Disease-Associated Artery/Lesion type: [place] artery [place] vs. transplanted heart: [place] heart Qualified Code(s): I25.10 - Atherosclerotic heart disease of [place] coronary artery without angina pectoris Meds Home Medications and Allergies Home Medications ?Medication ?Instructions ?Recorded ?Confirmed ?Type fluoxetine 20 mg capsule 20 mg PO DAILY 09/18/24 05/13/25 History tamsulosin 0.4 mg capsule 0.4 mg PO HS 09/18/24 05/13/25 History trazodone 100 mg tablet 100 mg PO HS 09/18/24 05/13/25 History albuterol sulfate 90 mcg/actuation 2 puff inhalation Q4HP PRN 09/28/24 05/13/25 History aerosol inhaler (Ventolin HFA) Shortness Of Breath apixaban 5 mg tablet (Eliquis) 5 mg PO BID #180 tabs 10/19/24 05/13/25 Rx atorvastatin 40 mg tablet 40 mg PO HS #90 tabs 10/19/24 05/13/25 Rx ibuprofen 800 mg tablet 800 mg PO QIDP PRN Mild Pain 11/25/24 05/13/25 History (Scale Score 1-4) dulaglutide 0.75 mg/0.5 mL 0.75 mg SQ WEEKLY 03/05/25 05/13/25 History subcutaneous pen injector (Trulicity) amiodarone 200 mg tablet 400 mg (2 x 200 mg) PO BID 30 days 03/07/25 05/13/25 Rx #120 tabs clopidogrel 75 mg tablet (Plavix) 75 mg PO DAILY 90 days #90 tabs 03/11/25 05/13/25 Rx dapagliflozin propanediol 10 mg 10 mg PO DAILY 05/13/25 05/13/25 History tablet (Farxiga) lisinopril 10 mg tablet 10 mg PO DAILY #30 tabs 05/14/25 Rx metoprolol succinate 100 mg 100 mg PO BID 30 days #60 tabs 05/14/25 Rx tablet,extended release 24 hr New Prescriptions to Start Prescriptions: lisinopril Joesph Denny metoprolol succinate Joesph Denny Allergies Allergy/AdvReac Type Severity Reaction Status Date / Time No Known Allergies Allergy Verified 03/11/25 14:46 Discharge Plan Disposition Patient Disposition: Home, Self-Care Condition: Fair Follow up Plan Follow up with: Keegan Pulido PA [Physician Client Care Consultant, Cardiology] - 05/25/25 9:15 am Olegario Samaniego [Primary Care Provider, Medical] - 05/26/25 10:00 am Prescriptions/Medication Reconciliation: New metoprolol succinate 100 mg Tablet Extended Release 24 Hr 100 mg PO BID 30 Days Qty: 60 0RF lisinopril 10 mg tablet 10 mg PO DAILY Qty: 30 0RF Continued Eliquis 5 mg tablet 5 mg PO BID Qty: 180 3RF atorvastatin 40 mg tablet 40 mg PO HS Qty: 90 3RF ibuprofen 800 mg tablet 800 mg PO QIDP PRN (Reason: Mild Pain (Scale Score 1-4)) Patient Comments: TAKE ONE TABLET BY MOUTH FOUR TIMES DAILY with food NEEDED albuterol sulfate [Ventolin HFA] 90 mcg/actuation HFA aerosol inhaler 2 puff inhalation Q4HP PRN (Reason: Shortness Of Breath) Patient Comments: inhale TWO puffs BY MOUTH EVERY FOUR HOURS NEEDED FOR wheeze clopidogrel [Plavix] 75 mg tablet 75 mg PO DAILY 90 Days Qty: 90 3RF tamsulosin 0.4 mg capsule 0.4 mg PO HS Patient Comments: TAKE 1 CAPSULE BY MOUTH EVERY DAY FOR URINATION trazodone 100 mg tablet 100 mg PO HS Patient Comments: TAKE 1 TABLET BY MOUTH EVERYDAY AT BEDTIME fluoxetine 20 mg capsule 20 mg PO DAILY Patient Comments: TAKE 1 CAPSULE BY MOUTH EVERY DAY FOR MOOD Trulicity 0.75 mg/0.5 mL pen injector 0.75 mg SQ WEEKLY Patient Comments: inject 0.75 mg subcutaneously every week x 4- 8 weeks then contact office for possible dose increase amiodarone 200 mg Tablet 400 mg PO BID 30 Days Qty: 120 0RF dapagliflozin propanediol [Farxiga] 10 mg tablet 10 mg PO DAILY Discontinued Entresto 24-26 mg tablet 1 tab PO BID Qty: 180 3RF metoprolol succinate [Toprol XL] 50 mg tablet extended release 24 hr 50 mg PO BID 30 Days Qty: 60 3RF aspirin 81 mg tablet 81 mg PO DAILY Qty: 30 0RF lisinopril 10 mg tablet 10 mg PO DAILY Problem Reconciliation Problems Reviewed?: Yes Patient Discharge Instructions Patient Instructions: Atrial Fibrillation Print Language: [place] Providers Primary Care Provider: Olegario Samaniego Admit Provider: Joesph Denny Attending Provider: Joesph Denny
--- NOTE | 2025-05-17 13:07 | SW/DCPLANNER ---
Spoke with patient on the phone. Patient stated that he is doing good. Patient stated that he is aware of his upcoming appointments. 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 Patient stated that he has no concerns or questions at this time. Mary Zaldivar
== END 2025-05-14 13:00 | disposition home or self-care (01) ==
LOC: ER 15:28 → ICU 15:51
PROVIDERS: Physician Assistant; Admitting Provider Student in an Organized Health Care Education/Training Program; Emergency Provider Student in an Organized Health Care Education/Training Program; PCP Family Medicine; Visit Provider Student in an Organized Health Care Education/Training Program
DX: I48.92 Unspecified atrial flutter (principal); F17.200 Nicotine dependence, unspecified, uncomplicated; E78.49 Other hyperlipidemia; E04.9 Nontoxic goiter, unspecified; I25.10 Atherosclerotic heart disease of native coronary artery without angina pectoris; Z79.899 Other long term (current) drug therapy; Z79.01 Long term (current) use of anticoagulants; Z79.02 Long term (current) use of antithrombotics/antiplatelets; Z79.85 Long-term (current) use of injectable non-insulin antidiabetic drugs; Z79.82 Long term (current) use of aspirin; Z79.84 Long term (current) use of oral hypoglycemic drugs; I11.0 Hypertensive heart disease with heart failure; I50.32 Chronic diastolic (congestive) heart failure; F41.9 Anxiety disorder, unspecified; F32.A Depression, unspecified; Z95.5 Presence of coronary angioplasty implant and graft; N40.0 Benign prostatic hyperplasia without lower urinary tract symptoms; E78.5 Hyperlipidemia, unspecified; J44.9 Chronic obstructive pulmonary disease, unspecified; I25.2 Old myocardial infarction; Z83.49 Family history of other endocrine, nutritional and metabolic diseases; K74.60 Unspecified cirrhosis of liver; I44.0 Atrioventricular block, first degree; E11.9 Type 2 diabetes mellitus without complications; R79.89 Other specified abnormal findings of blood chemistry
CPT/HCPCS: 36415; 71275; 80053; 80061; 83036; 83735; 83880; 84436; 84443; 84479; 84484; 85025; 93005; 99285; G0378; J0282; J7030; J7060; Q9967

== ENCOUNTER 2025-05-17 14:26 | Outpatient (CLI) | payer MEDICAID, SELFPAY ==
--- NOTE | 2025-05-17 15:00 | US_ITS ---
PROCEDURE INFORMATION: Exam: US Soft Tissue Head and Neck, Thyroid Exam date and time: 05/17/2025 2:46 PM Age: 54 years old Clinical indication: Abnormal findings; Abnormal radiologic study of neck; Additional info: 6 month f/u to monitor TECHNIQUE: Imaging protocol: Real-time ultrasound scan of the neck with image documentation. Exam focused on the thyroid. COMPARISON: US [facility] THYROID 10/13/2024 9:22 AM FINDINGS: Right thyroid lobe: Stable TI-RADS 4 nodules of the right thyroid lobe measuring between 7.1 and 9.6 mm. Left thyroid lobe: Unchanged left thyroid lobe mass measuring 3.7 x 5.8 x 3.7 cm from prior exam. Isthmus: No nodules. IMPRESSION: 1. Stable TI-RADS 4 nodules of the right thyroid lobe measuring between 7.1 and 9.6 mm. Continue annual follow-up. 2. Unchanged left thyroid lobe mass measuring 3.7 x 5.8 x 3.7 cm from prior exam. Continued annual follow up.
== END 2025-05-17 23:59 | disposition home or self-care (01) ==
LOC: RAD 14:26
PROVIDERS: PCP Family Medicine; Visit Provider Student in an Organized Health Care Education/Training Program
DX: E04.2 Nontoxic multinodular goiter (principal); E07.89 Other specified disorders of thyroid
CPT/HCPCS: 76536